=== PATIENT | female | born 1960 | race Caucasian/White ===

== ENCOUNTER → 2017-02-28 | Outpatient (CLI) | payer BC ==
--- NOTE | 2017-03-01 08:51 | MM ---
Reason for exam: follow-up at short interval from prior study. Last mammogram was performed 9 months ago. History: Patient is postmenopausal and has history of breast cancer at age 55. Malignant MG pre op needle loc RT of the right breast, July 13, 2016. Malignant MG stereo VAD BX RT of the right breast, June 13, 2016. Physical Findings: Nurse did not find any significant physical abnormalities on exam. MG 3D Diag Mammo W/Cad LE Bilateral CC and MLO view(s) were taken. Prior study comparison: May 25, 2016, right breast MG 3d work up w/cad RT. May 10, 2016, bilateral MG screening mammo w CAD. There are scattered fibroglandular densities. Post surgical and post therapy changes in the right breast. New global asymmetry posterior medial right breast suggestive of lumpectomy scar. This can be reassessed in 6 months. These results were verbally communicated with the patient and result sheet given to the patient on 02/28/17. ASSESSMENT: Probably benign, BI-RAD 3 RECOMMENDATION: Follow-up diagnostic mammogram of the right breast in 6 months.
== END | disposition home or self-care (01) ==
LOC: RADMAMWWP 15:29
PROVIDERS: ATTEND Radiology Radiation Oncology
DX: Z08 Encounter for follow-up examination after completed treatment for malignant neoplasm (principal); Z85.3 Personal history of malignant neoplasm of breast
CPT/HCPCS: G0204; G0279

== ENCOUNTER 2018-06-14 13:59 | Emergency (ER) | payer BC, OTHER ==
[2018-06-14 14:06] VITALS: BP 136/91; RESP 20; TEMP 97.8
--- NOTE | 2018-06-14 14:09 | ED ---
Fall HPI - General Chief Complaint: Fall Stated Complaint: fall-[facility] Time Seen by Provider: 06/14/18 14:08 Source: patient, RN notes reviewed Mode of arrival: wheelchair - History of Present Illness Initial Comments: This a 57-year-old female with past medical history of osteoarthritis and hypertension who presents today for chief complaint of fall 2 hours ago. 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 She began walking asthma and itas she was walking up a ramp so she continued to walk Associates for a flat surface this caused her to lose her balance and she fell 4 onto her knees bilaterally with the left falling or the right. Patient then fell forward onto her hands bilaterally and then "sort of rolled onto her left side hitting her left elbow. Patient stated that she did lightly hit the left side of her head on the ground, but she stated she broke the fall with hands/elbow and then hit head on ground lightly. She denied LOC. She did not experience any chest pain, shortness of breath, syncope, dizzines, palpitations, shortness of breathe dyspnea with exertion or any other symptoms prior to the fall and stated that it was mechanical in nature. Pt went home after the fall for lunch. Pt noticed left elbow pain, and very mild knee pain b/l, she stated she could ambulate without difficulty. Pt denied headache, diplopia, dizziness, nausea, vomiting, neck pain. Pt took tylenol for the left elbow pain around 1:15. She was told to come to the ER by her work for evaluation. Upon arrival pt appear well, VS stable. Patient denied numbness, tingling, loss sensation, muscle weakness, paresthesias, coolness or color change, ecchymosis of the left elbow. She does admit to some mild left elbow swelling. No abrasions. Patient denies any recent fever, chills, shortness of breath, chest pain, back pain, abdominal pain , nausea or vomiting, numbness or tingling, dysuria or hematuria, constipation or diarrhea, headaches or visual changes, or any other complaints. - Related Data Home Medications Medication Instructions Recorded Confirmed Acetaminophen Tab [Tylenol] 325 - 650 mg PO DIRECTED PRN 07/12/16 07/13/16 Cyclobenzaprine [Flexeril] 5 - 10 mg PO HS PRN 07/12/16 07/13/16 DULoxetine HCL [Cymbalta] 60 mg PO QAM 07/12/16 07/13/16 Glucosam/Pernell-Msm1/C/Daniel/Bosw 1 tab PO DAILY 07/12/16 07/13/16 [Glucosamine-Chondroitin Tablet] Ibuprofen [Motrin] 800 mg PO TID 07/12/16 07/13/16 Losartan Potassium 100 mg PO QAM 07/12/16 07/13/16 Omeprazole Unknown Dose 1 tab PO BID 07/12/16 07/13/16 Previous Rx's Medication Instructions Recorded HYDROcodone/APAP 7.5-325MG [Wallace 1 each PO Q4H PRN #60 tab 07/13/16 7.5] Allergies Allergy/AdvReac Type Severity Reaction Status Date / Time erythromycin base Allergy Unknown Verified 06/14/18 14:02 Penicillins Allergy Unknown Verified 06/14/18 14:02 Review of Systems ROS Statement: Those systems with pertinent positive or pertinent negative responses have been documented in the HPI. ROS Other: All systems not noted in ROS Statement are negative. Constitutional: Denies: fever, chills Eyes: Denies: vision change ENT: Denies: hearing loss Respiratory: Denies: cough, dyspnea Cardiovascular: Denies: chest pain, palpitations, dyspnea on exertion, edema, syncope Gastrointestinal: Denies: abdominal pain, nausea, vomiting Genitourinary: Denies: urgency, dysuria Musculoskeletal: Reports: joint swelling, arthralgia Skin: Denies: rash, lesions Neurological: Denies: headache, weakness, numbness, paresthesias, confusion Past Medical History Past Medical History: Fibromyalgia, GERD/Reflux, Hypertension, Osteoarthritis ( OA) History of Any Multi-Drug Resistant Organisms: None Reported Past Surgical History: Orthopedic Surgery Additional Past Surgical History / Comment(s): 06/13/16 RT BREAST CORE BX, RT KNEE MENISCUS REPAIR, RT FOOT SX Past Anesthesia/Blood Transfusion Reactions: No Reported Reaction Past Psychological History: Depression Smoking Status: Current every day smoker Past Alcohol Use History: Occasional Past Drug Use History: None Reported - Past Family History Father Family Medical History: Cancer Additional Family Medical History / Comment(s): LIVER General Exam - General Exam Comments Initial Comments: General: The patient is awake and alert, in no distress, and does not appear acutely ill. Eye: Pupils are equal, round and reactive to light, extra-ocular movements are intact. No nystagmus. There is normal conjunctiva bilaterally. No signs of icterus. No hemotypanum Cardiovascular: There is a regular rate and rhythm. No murmur, rub or gallop is appreciated. Respiratory: Lungs are clear to auscultation, respirations are non-labored, breath sounds are equal. No wheezes, stridor, rales, or rhonchi. Musculoskeletal: Full active and passive ROM at the hips, knees with extension and flexion, ankles b/l, no tenderness with movements or to palpation. Pt is able to full actively and passively range at the elbows and forearm b/l with flexion, extension, pronation and supination. Mild tenderness to palpation over the dorsal surface of the elbow, very minimal soft tissue swelling. No ecchymosis or abrasion evident. Full ROM at wrists b/l. Strength 5/5 of all muscles group testing in range of motion. Sensation intact of the UE and LE equally b/l. Pt able to make the OK, thumbs up, fingers crossed, and stop signs b/l. Radial ulnar and median nerve intact. DP, radial and ulnar pulses equal bilaterally 2+. Capillary refill less than 2 seconds. Compartments of the upper and lower extremities soft and compressible b/l. Full ROM at C-spine with flexion, extension, lateral flexion, rotation. No midline tenderness to palpation. Mild left sided paravertebral tenderness to deep palpation. Neurological: A&O x 3. CN II-XII intact, There are no obvious motor or sensory deficits. Coordination appears grossly intact. Speech is normal. No castanon sign , raccoon eyes, CSF otorheea or rhinorrhea. Skin: Skin is warm and dry and no rashes or lesions are noted. Psychiatric: Cooperative, appropriate mood & affect, normal judgment. Limitations: no limitations Course Vital Signs 06/14/18 06/14/18 14:02 15:07 Temperature 97.8 F Pulse Rate 107 H 93 Respiratory 20 Rate Blood Pressure 136/91 O2 Sat by Pulse 97 97 Oximetry Medical Decision Making - Medical Decision Making 57yo female with hx of fall. Pt presents in stable condition appear well in not acute distress with ice applied to the left elbow. Given pt hx and physical exam I have low suspicion of fracture or dislocation of the knees, wrists or hands. Pt denies pain, and states that she doesnt think anything is wrong with those areas. Pt does complain of left elbow pain concerning for possible underlying fracture or effusion. XR of the left elbow was obtained revealing no effusion, dislocation or fracture. Pt neurovascularly intact, compartment soft and compressible. At this time I feel pt has soft tissue swelling of the left elbow. Pt did not have any abrasion, contusions, or masses over the area of the left forehead where she said she lightly hit the ground. Pt stated that she barely touched the ground, and denies any symptoms. At this time I have low suspicion for intracranial process or concussion. [facility] CT Head rule score 0. [place] C-spine rule-low risk. Case discussed in detail with Dr. Camejo, who agrees with impression and plan. Pt may continue to take tylenol and motrin alternating the two as needed for pain and follow RICE instruction. Pt was instructed to f/u with PCP in 1-2 days, and to return to the ED for any new, persistent, or worsening symptoms. Pt agreed with plan and was discharged in stable condition. Disposition Clinical Impression: Left elbow pain, Fall Disposition: HOME SELF-CARE Condition: Good Instructions: Fall Prevention for Older Adults (ED) Additional Instructions: Please use over the counter medication as discussed. Please follow-up with family doctor in the next 2 days of symptoms have not improved. Please return to emergency room if the symptoms increase or worsen or for any other concerns. Is patient prescribed a controlled substance at d/c from ED?: No Referrals: Valerio Banegas DO [Primary Care Provider] - 1-2 days Time of Disposition: 14:35
--- NOTE | 2018-06-14 14:39 | XR ---
EXAMINATION TYPE: XR elbow complete LT DATE OF EXAM: 06/14/2018 CLINICAL HISTORY: pain TECHNIQUE: Frontal, lateral and oblique images of the left elbow are obtained. COMPARISON: None. FINDINGS: There is no acute fracture/dislocation evident of the elbow. Mild prominence of the anteri or fat pad. The overlying soft tissue appears unremarkable. IMPRESSION: There is no acute fracture or dislocation of the elbow. ICD 10 NO FRACTURE, INITIAL EVALUATION
[2018-06-14 15:08] VITALS: PULSE 93
== END 2018-06-14 15:07 | disposition home or self-care (01) ==
LOC: EC 13:59
DX: M25.522 Pain in left elbow (principal); M79.89 Other specified soft tissue disorders; M25.561 Pain in right knee; M25.562 Pain in left knee; I10 Essential (primary) hypertension; K21.9 Gastro-esophageal reflux disease without esophagitis; M19.90 Unspecified osteoarthritis, unspecified site; F32.9 Major depressive disorder, single episode, unspecified; F17.200 Nicotine dependence, unspecified, uncomplicated; Z79.1 Long term (current) use of non-steroidal anti-inflammatories (NSAID); Z79.899 Other long term (current) drug therapy; Z88.0 Allergy status to penicillin; Z88.1 Allergy status to other antibiotic agents; Z98.890 Other specified postprocedural states; W01.0XXA Fall on same level from slipping, tripping and stumbling without subsequent striking against object, initial encounter; Y93.01 Activity, walking, marching and hiking; Y92.211 Elementary school as the place of occurrence of the external cause; Y99.0 Civilian activity done for income or pay
CPT/HCPCS: 99283

== ENCOUNTER → 2018-06-18 | Outpatient (CLI) | payer OTHER ==
--- NOTE | 2018-06-19 09:05 | XR ---
Right knee HISTORY: Trauma and pain 3 views of the right knee No comparisons Marginal spurring and joint space loss, vacuum phenomenon present compartment. Alignment and bone min eralization are maintained. There may be a small joint effusion. Spurring also present at the patello femoral joint. IMPRESSION: Osteoarthritis. No fracture or dislocation.
== END | disposition home or self-care (01) ==
LOC: RADXRMAIN 15:13
PROVIDERS: ATTEND Emergency Medicine
DX: M17.11 Unilateral primary osteoarthritis, right knee (principal)

== ENCOUNTER → 2018-06-21 | Outpatient (CLI) | payer OTHER ==
--- NOTE | 2018-06-21 15:28 | XR ---
EXAMINATION TYPE: XR thoracic spine complete DATE OF EXAM: 06/21/2018 COMPARISON: NONE HISTORY: 57-year-old female with thoracic and lumbar spine pain after fall TECHNIQUE: 3 views FINDINGS: 12 rib-bearing thoracic vertebral bodies. All pedicles are visualized. Mild to moderate endplate spon dylosis throughout the thoracic spine. Vertebral body heights are preserved and alignment is maintain ed. There is grade 1 anterolisthesis noted at C7-T1 on the swimmer's view. Likely degenerative basis given the facet arthropathy. IMPRESSION: Mild to moderate multilevel spondylotic change. No vertebral compression collapse or malalignment. We note a grade 1 anterolisthesis at C7-T1 likely on a degenerative basis.
--- NOTE | 2018-06-21 15:34 | XR ---
EXAMINATION TYPE: XR lumbar spine 2 or 3V DATE OF EXAM: 06/21/2018 COMPARISON: NONE HISTORY: 57-year-old female lumbar and thoracic spine pain after fall TECHNIQUE: 3 views FINDINGS: 5 lumbar type vertebral bodies. Mild multilevel degenerative disc disease with disc space narrowing a nd endplate spondylosis. Hypertrophic facet arthropathy throughout. Vertebral body heights are preser luis and alignment is maintained. IMPRESSION: Mild multilevel degenerative disc disease. Additional hypertrophic facet arthropathy throughout. No v ertebral compression collapse or malalignment.
--- NOTE | 2018-06-21 15:36 | XR ---
EXAMINATION TYPE: XR elbow complete LT DATE OF EXAM: 06/21/2018 COMPARISON: NONE HISTORY: 57-year-old female pain after fall TECHNIQUE: 3 views FINDINGS: Elevated posterior fat-pad of the elbow. However, no acute fracture, subluxation, or dislocation is s een. IMPRESSION: 1. No acute fracture seen. 2. However, the underlying elbow joint effusion could indicate an occult internal derangement. Follow -up in 10-14 days.
== END | disposition home or self-care (01) ==
LOC: RADXRMAIN 14:31
PROVIDERS: ATTEND Emergency Medicine
DX: M25.422 Effusion, left elbow (principal); S50.02XD Contusion of left elbow, subsequent encounter; M47.814 Spondylosis without myelopathy or radiculopathy, thoracic region; M43.13 Spondylolisthesis, cervicothoracic region; M51.36 Other intervertebral disc degeneration, lumbar region; M46.86 Other specified inflammatory spondylopathies, lumbar region
CPT/HCPCS: 72072; 72100

== ENCOUNTER → 2018-07-03 | Outpatient (CLI) | payer BC ==
[2018-07-04 14:45] LABS: Cow's Milk IgE Class CLASS 0; Egg White IgE <0.35 kU/L (<0.35); Peanut IgE <0.35 kU/L (<0.35); Potato IgE <0.35 kU/L (<0.35); Potato IgE Class CLASS 0; Soybean IgE <0.35 kU/L (<0.35)
== END | disposition home or self-care (01) ==
LOC: LABWHC1 16:50
PROVIDERS: ATTEND Otolaryngology
DX: L50.0 Allergic urticaria (principal); J30.89 Other allergic rhinitis; B44.89 Other forms of aspergillosis
CPT/HCPCS: 36415; 86001; 86003

== ENCOUNTER → 2018-07-15 | Outpatient (CLI) | payer OTHER ==
--- NOTE | 2018-07-15 17:09 | MR ---
MR left elbow HISTORY: Trauma and pain Multiplanar multisequence imaging through the left elbow Correlation to plain film 06/21/2018 There is a small joint effusion present. Low signal present at the anterior aspect of the radial head as noted on T1 and T2-weighted sequences, there is some associated intermediate signal on T1, increa sed signal on T2-weighted sequences within the marrow compatible with posttraumatic edema. Linear low signal is compatible with nondisplaced fracture within the anterior third of the proximal radius. Ma rrow edema also suspected within the lateral aspect of the distal humerus compatible with bone contus ion. Irregularity of the articular cartilage suggestive of possible osteochondral injury. Soft tissue edema changes also present. Biceps tendon shows normal insertion. IMPRESSION: Posttraumatic changes suggesting microtrabecular fracture of the radial head anteriorly, possible associated osteochondral injury extending into the joint space. There is associated joint ef fusion, marrow edema. Consider follow-up plain film to assess for fracture line, CT scan may be of be nefit, consider orthopedic consult.
== END | disposition home or self-care (01) ==
LOC: RADMRIMAIN 06:10
PROVIDERS: ATTEND Emergency Medicine
DX: M25.422 Effusion, left elbow (principal); Z98.890 Other specified postprocedural states

== ENCOUNTER → 2018-10-02 | Outpatient (CLI) | payer BC ==
--- NOTE | 2018-10-02 14:37 | MM ---
Reason for exam: additional evaluation requested from prior study. Last mammogram was performed 1 year ago. History: Patient is postmenopausal and has history of breast cancer at age 55. Malignant MG pre op needle loc RT of the right breast, July 13, 2016. Malignant MG stereo VAD BX RT of the right breast, June 13, 2016. Lumpectomy of the right breast, 2016. Radiation therapy of the right breast, 2016. Physical Findings: Nurse did not find any significant physical abnormalities on exam. MG 3D Diag Mammo W/Cad LE Bilateral CC and MLO view(s) were taken. Prior study comparison: September 24, 2017, bilateral MG 3d diag mammo w/cad LE. February 28, 2017, bilateral MG 3d diag mammo w/cad LE. There are scattered fibroglandular densities. Finding: There are grouped/clustered coarse calcifications in the inner quadrant, posterior position of the right breast. New finding since September 24, 2017 and February 28, 2017. These results were verbally communicated with the patient and result sheet given to the patient on 10/02/18. ASSESSMENT: Probably benign, BI-RAD 3 RECOMMENDATION: Follow-up diagnostic mammogram of the right breast in 6 months.
== END | disposition home or self-care (01) ==
LOC: RADMAMWWP 13:06
PROVIDERS: ATTEND Radiology Radiation Oncology
DX: Z08 Encounter for follow-up examination after completed treatment for malignant neoplasm (principal); Z85.3 Personal history of malignant neoplasm of breast
CPT/HCPCS: 77062; 77066

== ENCOUNTER → 2019-04-17 | Outpatient (CLI) | payer BC ==
--- NOTE | 2019-04-17 11:40 | MM ---
Reason for exam: follow-up at short interval from prior study. Last mammogram was performed 6 months ago. History: Patient is postmenopausal and has history of breast cancer at age 55. Malignant MG pre op needle loc RT of the right breast, July 13, 2016. Malignant MG stereo VAD BX RT of the right breast, June 13, 2016. Lumpectomy of the right breast, 2016. Radiation therapy of the right breast, 2016. Physical Findings: Nurse did not find any significant physical abnormalities on exam. MG 3D Diag Mammo W/Cad RT CC with magnification, LM with magnification, ML with magnification, MLO, and CC view(s) were taken of the right breast. Prior study comparison: October 02, 2018, bilateral MG 3d diag mammo w/cad LE. September 24, 2017, bilateral MG 3d diag mammo w/cad LE. There are scattered fibroglandular densities. Medial posterior post surgical scar. Increasing grouped calcifications here. These calcifications remain localized but are becoming thicker. Suspect developing dystrophic calcifications. Unable to image on MLO or lateral views. Additional 6 month follow up recommended. These results were verbally communicated with the patient and result sheet given to the patient on 04/17/19. ASSESSMENT: Probably benign, BI-RAD 3 RECOMMENDATION: Follow-up diagnostic mammogram of both breasts in 6 months.
== END | disposition home or self-care (01) ==
LOC: RADMAMWWP 09:33
PROVIDERS: ATTEND Radiology Radiation Oncology
DX: D05.11 Intraductal carcinoma in situ of right breast (principal); Z92.3 Personal history of irradiation; Z98.890 Other specified postprocedural states
CPT/HCPCS: 77061; 77065

== ENCOUNTER → 2019-10-20 | Outpatient (CLI) | payer BC ==
--- NOTE | 2019-10-23 09:47 | MM ---
Reason for exam: follow-up at short interval from prior study. Last mammogram was performed 6 months ago. History: Patient is postmenopausal and has history of breast cancer at age 55. Malignant MG pre op needle loc RT of the right breast, July 13, 2016. Malignant MG stereo VAD BX RT of the right breast, June 13, 2016. Lumpectomy of the right breast, 2016. Radiation therapy of the right breast, 2016. Physical Findings: Nurse did not find any significant physical abnormalities on exam. MG 3D Diag Mammo W/Cad LE Bilateral CC and MLO view(s) were taken. XCCL view(s) were taken of the left breast. Prior study comparison: April 17, 2019, right breast MG 3d diag mammo w/cad RT. October 02, 2018, bilateral MG 3d diag mammo w/cad LE. The breast tissue is heterogeneously dense. This may lower the sensitivity of mammography. No suspicious abnormality. Post theapy change on the right. These results were verbally communicated with the patient and result sheet given to the patient on 10/20/19. ASSESSMENT: Benign, BI-RAD 2 RECOMMENDATION: Follow-up diagnostic mammogram of both breasts in 1 year.
== END | disposition home or self-care (01) ==
LOC: RADMAMWWP 13:32
PROVIDERS: ATTEND Radiology Radiation Oncology
DX: D05.11 Intraductal carcinoma in situ of right breast (principal); Z92.3 Personal history of irradiation; Z98.890 Other specified postprocedural states
CPT/HCPCS: 77062; 77066

== ENCOUNTER → 2020-07-19 | Outpatient (CLI) | payer BC | END | disposition home or self-care (01) | LOC: LABWHC1 13:13 | PROVIDERS: ATTEND Family Medicine | DX: Z20.828 Contact with and (suspected) exposure to other viral communicable diseases (principal) | CPT/HCPCS: U0003; C9803 ==

== ENCOUNTER 2020-11-22 09:14 | Day surgery (SDC) | payer BC ==
[2020-11-19 13:24] VITALS: BMI 39.4
[2020-11-22 09:51] VITALS: RESP 16; TEMP 98.5
[2020-11-22] MEDS ORDERED: LACTATED RINGERS 1,000 ML IV ONE (09:57)
[2020-11-22] MEDS ORDERED: LIDOCAINE 1% (10MG/ML) FOR IV START INTRADERMA ONE (09:58)
[2020-11-22] MEDS ORDERED: PROPOFOL 10 MG/ML 20 ML VIAL IV ONE (10:26)
[2020-11-22] MEDS ORDERED: LIDOCAINE 1% INJ 10MG/ML (20 ML MDV) ONE (10:26)
--- NOTE | 2020-11-22 10:45 | P.PCN ---
Date of Procedure: 11/22/20 Procedure(s) Performed: BRIEF HISTORY: Patient is a 60-year-old, pleasant, white female scheduled for an upper endoscopy as a part of evaluation of throat irritation and constipation so throat with occasional dysphagia for the last 6 months. She also has long- standing history of GERD and has been on omeprazole 20 mg daily for 5 years. PROCEDURE PERFORMED: Esophagogastroduodenoscopy with biopsy. PREOPERATIVE DIAGNOSIS: Throat irritation and intermittent dysphagia to solids. IV sedation per anesthesia. PROCEDURE: After informed consent was obtained, the patient was brought into the endoscopy unit. IV sedation was administered by Anesthesia under continuous monitoring. Initially the Olympus GIF-140 video endoscope was inserted into the mouth. Esophagus intubated without any difficulty. It was gradually advanced into the stomach and duodenum and carefully examined. The bulb and the second p art of the duodenum appeared normal. The scope at this time was withdrawn to the stomach, adequately insufflated with air, and upon careful examination, mucosa of the antrum, gastritis and biopsies were done from this area. The body, cardia and the fundus appeared normal. The scope was then withdrawn into the esophagus. The GE junction was located at 39 cm from the incisors. The esophagus appeared normal. There were no erosions or ulcerations seen. The proximal cervical esophagus was carefully examined and appeared normal. There was no evidence of Zenker's diverticulum or any extrinsic compression noted. Biopsies were done from the midesophagus and the patient tolerated the procedure well. IMPRESSION: 1. Normal-appearing esophagus with no evidence of esophagitis, esophageal stricture, extrinsic compression or Zenker's diverticulum. 2. Mild antral gastritis. RECOMMENDATIONS: The findings of this examination were discussed with the patient as well as a family. She was advised to follow with the biopsy results. In the meantime she will continue with omeprazole 20 mg daily for her GERD symptoms and follow antireflux measures..
[2020-11-22 11:04] VITALS: BP 148/89; PULSE 69
== END 2020-11-22 11:42 | disposition home or self-care (01) ==
LOC: ORWHC2ENDO 09:14
PROVIDERS: ATTEND Internal Medicine Gastroenterology
DX: K29.70 Gastritis, unspecified, without bleeding (principal); K31.9 Disease of stomach and duodenum, unspecified; K21.00 Gastro-esophageal reflux disease with esophagitis, without bleeding; I10 Essential (primary) hypertension; F17.200 Nicotine dependence, unspecified, uncomplicated; M79.7 Fibromyalgia; E66.01 Morbid (severe) obesity due to excess calories; K59.00 Constipation, unspecified; Z79.899 Other long term (current) drug therapy; Z79.1 Long term (current) use of non-steroidal anti-inflammatories (NSAID); Z88.0 Allergy status to penicillin; Z88.1 Allergy status to other antibiotic agents; Z68.39 Body mass index [BMI] 39.0-39.9, adult; Z98.890 Other specified postprocedural states
CPT/HCPCS: 88305; 43239; J2001; J2704

== ENCOUNTER 2023-07-24 08:49 | Inpatient (IN) | payer BC ==
--- NOTE | 2023-07-23 08:59 | P.HPOR ---
History of Present Illness H&P Date: 07/23/23 Chief Complaint: Right knee pain Patient is a 62-year-old female who presents with progressive right knee pain for the past several years worsening recently. She notes intermittent buckling and locking. She notes medial pain with weightbearing activities that significantly limits her. She has tried medications in addition to injections and bracing without much relief. Review of Systems Negative except as in HPI Past Medical History Past Medical History: Fibromyalgia, GERD/Reflux, Hypertension, Osteoarthritis (OA) Additional Past Medical History / Comment(s): 2016 Precancerous cells in R breast with lumpectomy and radiation, History of Any Multi-Drug Resistant Organisms: None Reported Past Surgical History: Breast Surgery, Orthopedic Surgery Additional Past Surgical History / Comment(s): Rt breast lumpectomy- preecancerous tissue06/13/16, RT BREAST CORE BX, RT KNEE MENISCUS REPAIR, LT FOOT SX/TENDON Past Anesthesia/Blood Transfusion Reactions: No Reported Reaction Smoking Status: Current every day smoker - Past Family History Father Family Medical History: Cancer Additional Family Medical History / Comment(s): LIVER Medications and Allergies Home Medications Medication Instructions Recorded Confirmed Type Acetaminophen Tab [Tylenol] 325 - 650 mg PO DIRECTED PRN 07/12/16 07/20/23 History Cyclobenzaprine [Flexeril] 10 mg PO HS PRN 07/12/16 07/20/23 History DULoxetine HCL [Cymbalta] 60 mg PO QAM 07/12/16 07/20/23 History Glucosam/Pernell-Msm1/C/Daniel/Bosw 1 tab PO QAM 07/12/16 07/20/23 History [Glucosamine-Chondroitin Tablet] Losartan Potassium 100 mg PO QAM 07/12/16 07/20/23 History Multivitamins, Thera [Multivitamin 1 tab PO QAM 11/19/20 07/20/23 History (formulary)] Diclofenac Sodium [Voltaren] 50 mg PO BID 07/20/23 07/20/23 History Gabapentin [Neurontin] 300 mg PO HS 07/20/23 07/20/23 History Allergies Allergy/AdvReac Type Severity Reaction Status Date / Time erythromycin base Allergy stomach Verified 11/22/20 09:40 irritation Penicillins AdvReac hands Verified 07/20/23 08:55 intching Physical Examination - Knee right Appearance: effusion Effusion grade: grade 2 Varus alignment in stance: 10 degrees Tenderness with palpation: anterior, medial Pain: throughout ROM Gait: limping ROM: extension: -10 degrees ROM: flexion: 100 degrees Crepitus with motion: Yes Strength: extension: 5/5 Strength: flexion: 5/5 Meniscal tests: medial meniscal tests: positive, medial joint line pain: positive Results The patient is a well-developed well-nourished female approximately 5 foot 4, 230 pounds of endomorphic habitus. HEENT exam is nonfocal, neck is supple. She has painless passive motion of the right hip. Straight leg raise is negative. She's tender about the medial joint line. Collaterals are stable, Rosario was negative, Mingo's elicits medial pain. She has an antalgic gait pattern. Her distal neurovascular appears intact right lower extremity. - Diagnostic results Knee x-ray: image reviewed (3 views the right knee obtain the office show severe medial compartment osteoarthrosis with [id number] changes and subchondral sclerosis.) Assessment and Plan Assessment: Right knee severe medial compartment osteoarthrosis Obesity/BMI 39.48 Plan: I talked with the patient length regarding her condition along with treatment options. At this point she's quite symptomatic and limited because of pain related to her right knee osteoarthrosis despite conservative measures. After a thorough discussion she opted to proceed with surgery. We'll proceed with right total knee arthroplasty. We will institute DVT prophylaxis postoperative. Risks and benefits were discussed at length in layman's terms.
[~2023-07-24 08:49] MED LIST: ACETAMINOPHEN TAB 500 MG TAB PO PRN; HYDROmorphone 0.5 MG/0.5 ML SYRINGE IVP PRN; MELOXICAM 7.5 MG TAB PO PRN; ONDANSETRON 4 MG/2 ML VIAL IVP ONE; TRANEXAMIC 1,000 MG/100ML-NACL 1,000 MG in SALINE 1 100ML.BAG IVPB PRN
[2023-07-24] MEDS: DEXAMETHASONE SOD PHOSPHATE 4 MG/ML 1 ML VIAL IV ONE ×2 (10:14→15:08)
[2023-07-24] MEDS: LACTATED RINGERS 1,000 ML IV SCH ×2 (10:14→10:47)
[2023-07-24] MEDS ORDERED: MIDAZOLAM 2 MG/2 ML VIAL IVP ONE (10:16)
[2023-07-24] MEDS ORDERED: fentaNYL (PF) 50 MCG/ML 2 ML AMP IVP ONE (10:16)
--- NOTE | 2023-07-24 10:43 | P.ANPRN ---
Procedure Note - Anesthesia - Nerve Block Performed Right Adductor Canal Infusion Time Out Performed: Yes ([id number]) Date of Procedure: 07/24/23 Procedure Start Time: : Procedure Stop Time: Location of Patient: PreOp Indication: Acute Post-Operative Pain, Requested by Surgeon Specifically requested for management of pain by DrGabrielle: Jeremias Corona Sedation Type: Sedate with meaningful contact maintained Preparation: Sterile Prep Position: Supine Catheter Depth at Skin (cm): 9 Catheter: Indwelling Needle Types: Pajunk Needle Gauge: 21 Ultrasound used to visualize needle placement: Yes Ultrasound used to observe medication spread: Yes Injectate: 0.5% Ropivacaine (see comment for volume) (15cc +10cc nacl pf) Blood Aspirated: No Pain Paresthesia on Injection Noted: No Resistance on Injection: Normal Image Stored and Saved: Yes Events: Uneventful and Well Tolerated
--- NOTE | 2023-07-24 10:44 | P.ANPRN ---
Procedure Note - Anesthesia - Nerve Block Performed Right iPack Single Time Out Performed: Yes (1017) Date of Procedure: 07/24/23 Procedure Start Time: Procedure Stop Time: Location of Patient: PreOp Indication: Acute Post-Operative Pain, Requested by Surgeon Specifically requested for management of pain by DrGabrielle: Herb Mathias Sedation Type: Sedate with meaningful contact maintained Preparation: Sterile Prep Position: Supine Catheter: None Needle Types: Pajunk Needle Gauge: 21 Ultrasound used to visualize needle placement: Yes Ultrasound used to observe medication spread: Yes Injectate: 0.5% Ropivacaine (see comment for volume) (15cc +10cc nacl pf) Blood Aspirated: No Pain Paresthesia on Injection Noted: No Resistance on Injection: Normal Image Stored and Saved: Yes Events: Uneventful and Well Tolerated
[2023-07-24] MEDS ORDERED: ROPIVACAINE 5 MG/ML 30 ML VIAL ONE (10:47)
[2023-07-24] MEDS ORDERED: MIDAZOLAM 2 MG/2 ML VIAL ONE (10:47)
[2023-07-24] MEDS ORDERED: TRANEXAMIC 1,000 MG/100ML-NACL PREMIX BAG ONE (10:47)
[2023-07-24] MEDS ORDERED: fentaNYL (PF) 50 MCG/ML 2 ML AMP ONE (10:47)
[2023-07-24] MEDS ORDERED: SODIUM CHLORIDE 0.9% (PF) 10 ML VIAL ONE (10:47)
[2023-07-24] MEDS ORDERED: PROPOFOL 10 MG/ML 20 ML VIAL IV ONE (10:47)
[2023-07-24] MEDS ORDERED: ceFAZolin 1,000 MG in SODIUM CHLORIDE 0.9% 1,000 ML IRRIGATION ONE (11:26)
[2023-07-24] MEDS ORDERED: LACTATED RINGERS 1,000 ML IV ONE (12:14)
[2023-07-24] MEDS ORDERED: MAGNESIUM HYDROXIDE 2,400 MG/30 ML CUP PO PRN (12:26)
[2023-07-24] MEDS ORDERED: HYDROmorphone 0.5 MG/0.5 ML SYRINGE IVP PRN (12:26)
[2023-07-24] MEDS ORDERED: HYDROcodone/APAP 5-325MG 1 EACH TAB PO PRN (12:26)
[2023-07-24] MEDS ORDERED: NALOXONE 0.4 MG/ML 1 ML VIAL IV PRN (12:26)
--- NOTE | 2023-07-24 12:45 | P.OP ---
Date of Procedure: 07/24/23 Preoperative Diagnosis: Right knee severe tricompartmental osteoarthrosis Postoperative Diagnosis: Same Procedure(s) Performed: Right total knee arthroplastycementedposterior stabilized Implants: Depuy Attune size 6 narrow cemented femoral component, size 5 cemented tibial component, 9 mm articular surface, 35 mm cemented patellar component. This is a posterior stabilized implant. Anesthesia: regional, spinal Surgeon: Jeremias Corona Contracts Attorney #1: Rashi Roper Estimated Blood Loss (ml): 50 Pathology: none sent Condition: stable Disposition: PACU Indications for Procedure: The patient is a 62-year-old female presents with progressive right knee pain secondary to osteoporosis despite conservative measures. A discussion of the risks and benefits of operative intervention versus continued conservative measures was made with patient. She opted to proceed with surgery. Operative risks to include infection, neurovascular injury, fracture, development of blood clots, component loosening/failure and possible need for subsequent procedures was discussed. Informed consent was obtained. Operative Findings: As below Description of Procedure: The patient was brought to the operating room, and after induction of spinal anesthesia the right lower extremity was prepped and draped in a normal fashion. The tourniquet was inflated to 270 mm marker. A longitudinal incision extending 3 finger breaths above the superior pole of patella extending to the medial aspect the tibial tubercle was then made. The skin and subcutaneous tissues were divided sharply. Electrocautery was used for hemostasis. A medial parapatellar arthrotomy was performed. The medial soft tissues to include the superficial and deep portions of the medial collateral ligament were elevated subperiosteally. The patella was everted. A portion of the retropatellar fat pad was excised sharply. The anterior cruciate ligament was sacrificed. Blunt retractors were placed. A starting hole was made in the distal femur 1 cm anterior to the posterior cruciate ligament origin. An intramedullary femoral guide was then inserted planning on 5 valgus distal cut with 9 mm distal resection. The cutting block was pinned in place. The distal cut was then made. The posterior referencing sizing guide was utilized. I felt size 6 narrow was most appropriate. 3 of external rotation was built into the system and verified off the trans-epicondylar axis and the posterior condyles. The cutting block was pinned in place. The anterior, posterior, and chamfer cuts then made. Bone fragments were removed. The intercondylar guide was placed and the notch cut was made with a sagittal saw. The bone block was removed in one fragment. The trial component was then placed. There is good anterior to posterior and medial to lateral fit. The distal peg holes were drilled. The trial component was removed. Attention was then paid towards preparing the proximal tibia. An extra medullary guide was utilized in line with the tibial shaft and second metatarsal distally. I planned on 4 mm resection from the medial compartment. The cutting block was pinned in place. The proximal tibial cut was then made. The bone was removed in one fragment. The remnants of the medial and lateral menisci were excised at the capsular junction with electrocautery. The tibia sized most appropriately at size 5. The trial femoral and tibial components were placed along with a 9 mm articular surface. I was able to obtain full flexion and extension with internal and external rotation. After several flexion and extension cycles, the tibial rotation was marked with electrocautery line with the medial one third of the tibial tubercle. Attention was then paid towards preparing the patella. A patella reamer was utilized taking stem to 14 mm of bone stock. A good flush cut was made. The patella sized most appropriately 35 mm. The peg holes were drilled. The trial components placed. I had good patellofemoral tracking with no hands technique. The trial components were then removed. The tibia was prepared in the appropriate rotation with appropriate drill and keel punch. The posterior osteophytes were removed with a curved osteotome. The flexion and extension gaps were checked and felt to be symmetric at 9 mm. A trial components were then removed. The bony surfaces were prepared with pulsatile lavage and dried. The tibial component was then cemented place was fully seated. Excess cement was removed. The femoral component cemented place and was fully seated. Excess cement was removed. The trial 9 mm articular surface was placed and the knee was put in full extension. The patella component was cemented place. After the cement had sufficiently hardened, the knee was again taken through a range of motion. Again I was able to obtain full flexion and extension with varus and valgus stress. The trial 9 mm articular surface was removed and the final one inserted. This was fully seated. Care was taken to avoid any soft tissue interposition. Pulsatile lavage was again utilized. The medial parapatellar arthrotomy was closed with #2 Ethibond suture. The tourniquet was deflated with approximately 60 minutes total tourniquet time. Final hemostasis was obtained with the cautery. There was minimal bleeding therefore a deep drain was not placed. The subcutaneous tissues were reapproximated with interrupted 2-0 Vicryl sutures. The skin was reapproximated with 3-0 subcuticular strata fix suture. Skin tape and adhesive was applied. A sterile dressing was applied. The patient was awoken from sedation and transferred to recovery room in good condition. Blood loss was estimated at 50 mL. No complications were incurred. Sponge and needle counts were correct at the end of the case. Rashi RODNEY assisted during the major components of this case to include exposure, bone resection, implantation, and closure.
--- NOTE | 2023-07-24 13:14 | XR ---
EXAMINATION TYPE: XR knee limited RT DATE OF EXAM: 07/24/2023 COMPARISON: NONE TECHNIQUE: Two views submitted HISTORY: Post op FINDINGS: There is a prosthetic knee in near anatomic alignment. There is soft tissue edema and soft tissue e mphysema compatible with recent surgery. IMPRESSION: 1. Postoperative change. Appears in near-anatomic alignment
[2023-07-24] MEDS ORDERED: ROPIVACAINE 1,100 MG, SODIUM CHLORIDE 0.9% 500 ML 330 ML, EMPTY PAIN BALL 1 EACH MISCELLANE PRN ×2 (13:19)
[2023-07-24] MEDS: HYDROmorphone 1 MG/ML 1 ML SYRINGE IVP PRN ×3 (14:35→19:50)
[2023-07-24] MEDS: HYDROcodone/APAP 7.5-325MG 1 EACH TAB PO PRN ×2 (15:18→22:45)
[2023-07-24] MEDS: hydrOXYzine pamoate 25 MG CAP PO PRN ×2 (16:16→20:39)
[2023-07-24] MEDS ORDERED: traMADol 50 MG TAB PO PRN (20:00)
[2023-07-24] MEDS: SENNOSIDES-DOCUSATE SODIUM 1 EACH TAB PO SCH (20:39)
[2023-07-24] MEDS: GABAPENTIN 300 MG CAP PO SCH (20:39)
[2023-07-24] MEDS: CYCLOBENZAPRINE 10 MG TAB PO PRN (23:11)
[2023-07-25] MEDS: HYDROmorphone 1 MG/ML 1 ML SYRINGE IVP PRN ×6 (00:17→22:08)
--- NOTE | 2023-07-25 06:30 | P.PN ---
Progress Note - Text Progress Note Date: 07/25/23 patient was seen and evaluated at bedside. Status post postoperative day 1 forRight -sided total knee arthroplasty patient had adductor canal catheter for postop pain control. Patient rated pain at rest 5- 6 out of 10 in severity. Patient describes pain is aching, throbbing type on the sides of the knee and back of the knee. Patient started walking with support. With activity patient pain levels are 8 out of 10 in severity. With the help of oral pain medicati ons pain levels are tolerable. Patient denied any weakness/ numbness in lower extremities. patient denied any fever, pain over the catheter site. Physical exam: Patient vital signs stable Patient is alert awake oriented 3 responding to all questions appropriately Examination of the catheter site showed dressing intact, no leaking fluid around the catheter, no redness, no tenderness over the catheter insertion area. plan: status post postoperative day 1 for right total knee arthroplasty with adductor canal catheter for pain control. Patient was discussed to continue the medication until the pump is completely empty and instructed the patient how to discontinue the catheter.
[2023-07-25] MEDS: LACTATED RINGERS 1,000 ML IV SCH (06:47)
[2023-07-25 08:42] LABS: Basophils # (A) 0.04 X 10*3/uL (0.00-0.10); Basophils % (A) 0.3 %; Eosinophils # (A) 0.02 X 10*3/uL (0.04-0.35); Eosinophils % (A) 0.2 %; HCT 37.1 % (37.2-46.3); HGB 12.1 d/dL (12.0-15.0); Lymphocytes # (A) 2.53 X 10*3/uL (0.90-5.00); Lymphocytes % (A) 19.1 %; MCHC 32.6 d/dL (32.0-37.0); MCV 98.1 FL (80.0-97.0); Mean Platelet Volume 10.1 FL (9.5-12.2); Monocytes # (A) 1.01 X 10*3/uL (0.20-1.00); Monocytes % (A) 7.6 %; NRBC Per 100 WBC 0 X 10*3/uL (0.00-0.01); Neutrophils % (A) 72.4 %; Platelet Count 395 X 10*3/uL (140-440); RBC 3.78 X 10*6/uL (4.10-5.20); RDW 13.2 % (11.5-14.5); WBC 13.25 X 10*3/uL (4.50-10.00)
[2023-07-25] MEDS: hydrOXYzine pamoate 25 MG CAP PO PRN ×2 (08:46→14:59)
[2023-07-25] MEDS: PANTOPRAZOLE 40 MG TABLET PO SCH (08:47)
[2023-07-25] MEDS: LOSARTAN 50 MG TAB PO SCH (08:47)
[2023-07-25] MEDS: DULoxetine HCL 60 MG CAPSULE.DR PO SCH (08:47)
[2023-07-25] MEDS: RIVAROXABAN 10 MG TAB PO SCH (08:47)
--- NOTE | 2023-07-25 10:14 | P.PN ---
Subjective Progress Note Date: 07/25/23 Principal diagnosis: Right knee osteoarthritis Patient was seen at bedside this morning lying semirecumbent position with dressing of the right knee. Patient says she did have a lot of pain overnight. She says she has been up walking a couple times and used the bathroom. She says she hasn't had any issues urinating. Patient says she is looking forward to working with physical therapy later this morning. Patient is hoping to stay one more night for continued pain control. Patient denies any other issues at this time. Patient denies chest pain, fever shortness breath, nausea, vomiting, change in vision, loss of bowel/bladder control. Objective - Vital Signs Vital signs: Vital Signs Temp 98.8 F 07/25/23 07:10 Pulse 101 H 07/25/23 07:10 Resp 17 07/25/23 07:10 BP 117/76 07/25/23 07:10 Pulse Ox 90 L 07/25/23 07:10 FiO2 Intake & Output 07/24/23 07/25/23 07/25/23 18:59 06:59 18:59 Intake Total 1251 Output Total 50 Balance 1201 Weight 105.7 kg Intake: IV 1251 Output: Estimated Blood Loss 50 Other: # Voids 2 3 - Exam Right knee: Incision is clean, dry, and intact. The exofin fusion tape is in good condition. There is minimal soft tissue swelling and ecchymosis surrounding the medial and lateral aspects of the incision. Calf is soft, no tenderness with palpation. Plantar flexion, dorsiflexion, EHL, FHL are intact. Sensory exam to light touch throughout the extremity is intact, dorsal pedis pulses 2+. - Labs CBC & Chem 7: 07/25/23 04:39 Labs: Abnormal Lab Results - Last 24 Hours (Table) 07/25/23 Range/Units 04:39 WBC 13.25 H (4.50-10.00) X 10*3/uL RBC 3.78 L (4.10-5.20) X 10*6/uL Hct 37.1 L (37.2-46.3) % MCV 98.1 H (80.0-97.0) FL Neutrophils # 9.60 H (1.80-7.70) X 10*3/uL Monocytes # 1.01 H (0.20-1.00) X 10*3/uL Eosinophils # 0.02 L (0.04-0.35) X 10*3/uL Assessment and Plan Assessment: 1. Right knee osteoarthritis - Postop day 1 status post right total knee arthroplasty Plan: 1. Right knee osteoarthritis - right total knee arthroplasty performed yeste , 07/24/2023. Patient stable at bedside this morning. We will adjust pain medications as needed. Plan for patient to stay one more night for additional pain control. Plan for discharge home tomorrow with health services. 2 . Appreciate medical management 3. Pain management - [place]; tramadol; Flexeril; gabapentin 4. DVT prophylaxis - Xarelto 5. GI prophylaxis - senna 6. PT/OT - weightbearing as tolerated with walker 7. Encourage incentive spirometer use 8. Discharge planning - discharge home with health services tomorrow Time with Patient: Less than 30
[2023-07-25] MEDS ORDERED: IPRATROPIUM-ALBUTEROL 3 ML NEB INHALATION PRN (11:10)
--- NOTE | 2023-07-25 11:17 | P.CONS ---
History of Present Illness - Reason for Consult Consult date: 07/25/23 Medical management hypertension, nicotine dependence Requesting physician: Jeremias Corona - Chief Complaint Osteoarthritis, status post surgical repair right knee - History of Present Illness This is 62-year-old female with past medical history significant for osteoarthritis , fibromyalgia, gastroesophageal reflux disease, hypertension, depression, ongoing nicotine dependence-since 1972, obesity ,status post right total knee arthroplasty. Tolerated procedure well. Currently reports pain this morning. PT pending. Denies chest pain, palpitations or shortness of breath. Maintaining O2 sats in the low 90s on room air with minimal tachycardia. Denies chest pain, palpitations or shortness of breath. Afebrile, WBC 13.25, hemoglobin 12.1, platelets 395. Review of Systems Constitutional: Denied any fatigue denied any fever. Cardio vascular: denied any chest pain, palpitations Gastrointestinal denied any nausea vomiting Pulmonary: Denied any shortness of breath cough Neurologic denied any new focal deficits All inpatient medications were reviewed and appropriate changes in these medications as dictated in the interval history and assessment and plan. 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, History of Any Multi-Drug Resistant Organisms: None Reported Past Surgical History: Breast Surgery, Orthopedic Surgery Additional Past Surgical History / Comment(s): Rt breast lumpectomy-preec ancerous tissue06/13/16, RT BREAST CORE BX, RT KNEE MENISCUS REPAIR, LT FOOT SX/TENDON Past Anesthesia/Blood Transfusion Reactions: No Reported Reaction Past Psychological History: Depression Additional Psychological History / Comment(s): USES CYMBALTA FOR BOTH PAIN AND DEPRESSION Smoking Status: Current every day smoker Past Alcohol Use History: Occasional Additional Past Alcohol Use History / Comment(s): STARTED SMOKING AT AGE 14 (1972)<1PPD Past Drug Use History: None Reported - Past Family History Father Family Medical History: Cancer Additional Family Medical History / Comment(s): LIVER Medications and Allergies Home Medications Medication Instructions Recorded Confirmed Type Acetaminophen Tab [Tylenol] 325 - 650 mg PO DIRECTED PRN 07/12/16 07/24/23 History Cyclobenzaprine [Flexeril] 10 mg PO HS PRN 07/12/16 07/24/23 History DULoxetine HCL [Cymbalta] 60 mg PO QAM 07/12/16 07/24/23 History Glucosam/Pernell-Msm1/C/Daniel/Bosw 1 tab PO QAM 07/12/16 07/24/23 History [Glucosamine-Chondroitin Tablet] Losartan Potassium 100 mg PO QAM 07/12/16 07/24/23 History Multivitamins, Thera [Multivitamin 1 tab PO QAM 11/19/20 07/24/23 History (formulary)] Diclofenac Sodium [Voltaren] 50 mg PO BID 07/20/23 07/24/23 History Gabapentin [Neurontin] 300 mg PO HS 07/20/23 07/24/23 History Omeprazole 20 mg PO DAILY 07/24/23 07/24/23 History Allergies Allergy/AdvReac Type Severity Reaction Status Date / Time erythromycin base Allergy stomach Verified 07/24/23 09:57 irritation Penicillins AdvReac hands Verified 07/24/23 09:57 intching Physical Exam Vitals: Vital Signs Temp Pulse Pulse Resp BP Pulse Ox 07/25/23 07:10 98.8 F 101 H 17 117/76 90 L 07/25/23 00:22 98 F 88 16 129/86 94 L 07/24/23 19:10 98.2 F 82 16 124/77 95 07/24/23 14:36 97.2 F L 67 17 147/75 97 07/24/23 13:58 65 16 120/71 96 07/24/23 13:43 63 16 122/70 94 L 07/24/23 13:28 64 16 129/67 94 L 07/24/23 13:13 63 16 132/61 95 07/24/23 12:58 62 14 130/67 94 L 07/24/23 12:43 67 14 152/74 100 Intake and Output 07/24/23 07/25/23 07/25/23 22:59 06:59 14:59 Intake Total 210 Balance 210 Intake: Intake, IV Titration 210 Amount Lactated Ringers 1,000 ml 160 @ 20 mls/hr IV .Q24H [facility] Rx#:[id number] ceFAZolin 2 gm In Sodium 50 Chloride 0.9% 50 ml @ 100 mls/hr IVPB Q8H [facility] Rx#: [id number] Other: Voiding Method External Catheter # Voids 2 3 PHYSICAL EXAM: VITAL SIGNS: [As above] GENERAL: Alert and oriented 3, sitting up in bed, no acute distress. HEENT: Normocephalic,Conjunctivae normal. eyes normal. MMM. NECK: Supple, No JVD. CARDIOVASCULAR: S1, S2 regular. No murmur RESPIRATION: Unlabored, equal air entry, Breath sounds diminished in the bases. No rhonchi or crackles. No bronchial breathing. ABDOMEN: Soft, nondistended, nontender . No guarding. no masses palpable. No ascites, No hepatosplenomegaly.Bowel sounds heard. LEGS: Right knee dressing clean dry and intact, denies calf tenderness, positive DP pulse. PSYCHIATRY: Alert and oriented X3, mood and affect normal. NERVOUS SYSTEM: Cranial N 2-12 grossly normal. No focal deficits. Strength and sensation grossly intact.. Skin: Warm and dry, no rash Results CBC & Chem 7: 07/25/23 04:39 Labs: Abnormal Lab Results - Last 24 Hours (Table) 07/25/23 Range/Units 04:39 WBC 13.25 H (4.50-10.00) X 10*3/uL RBC 3.78 L (4.10-5.20) X 10*6/uL Hct 37.1 L (37.2-46.3) % MCV 98.1 H (80.0-97.0) FL Neutrophils # 9.60 H (1.80-7.70) X 10*3/uL Monocytes # 1.01 H (0.20-1.00) X 10*3/uL Eosinophils # 0.02 L (0.04-0.35) X 10*3/uL Assessment and Plan Assessment: Right knee OA, status post right total knee arthroplasty Atelectasis, postoperative, expected outcome Acute hypoxic respiratory failure secondary to the above Gastroesophageal reflux disease Fibromyalgia Hypertension Depression Ongoing nicotine dependence COPD Plan: Continue on current medication regime ,monitoring and symptomatic treatment. Aggressive pulmonary toileting with incentive spirometer reinforced. Smoking cessation reinforced. Nicotine patch added to med regimen. Nebulized bronchodilators and LABA initiated. Pain management and DVT prophylaxis as per primary. PT pending. Follow-up with PCP in one week. Thank you for the consult Dr. Corona. The impression and plan of care has been dictated as directed. : I performed a history and examination of this patient, discussed the same with the dictator. I agree with the dictator's note ,documented as a scribe. Any additional findings or plans will be noted.
[2023-07-25] MEDS: IPRATROPIUM-ALBUTEROL 3 ML NEB INHALATION SCH ×3 (11:49→21:01)
[2023-07-25] MEDS: SYMBICORT 80-4.5 MCG INHALER INHALATION SCH ×2 (11:49→21:01)
[2023-07-25] MEDS: LORATADINE 10 MG TAB PO SCH (14:58)
[2023-07-25] MEDS: NICOTINE 14MG/24HR PATCH TRANSDERM SCH (14:58)
[2023-07-25] MEDS: oxyCODONE-APAP 5-325MG 1 EACH TAB PO PRN (14:59)
[2023-07-25] MEDS: SENNOSIDES-DOCUSATE SODIUM 1 EACH TAB PO SCH (20:31)
[2023-07-25] MEDS: HYDROcodone/APAP 7.5-325MG 1 EACH TAB PO PRN (20:31)
[2023-07-25] MEDS: GABAPENTIN 300 MG CAP PO SCH (20:32)
[2023-07-25] MEDS: CYCLOBENZAPRINE 10 MG TAB PO PRN (20:32)
[2023-07-26] MEDS: oxyCODONE-APAP 5-325MG 1 EACH TAB PO PRN ×2 (02:22→07:57)
[2023-07-26] MEDS: HYDROcodone/APAP 7.5-325MG 1 EACH TAB PO PRN (05:21)
[2023-07-26] MEDS: NICOTINE 14MG/24HR PATCH TRANSDERM SCH (07:54)
[2023-07-26] MEDS: RIVAROXABAN 10 MG TAB PO SCH (07:54)
[2023-07-26] MEDS: PANTOPRAZOLE 40 MG TABLET PO SCH (07:54)
[2023-07-26] MEDS: LOSARTAN 50 MG TAB PO SCH (07:54)
[2023-07-26] MEDS: DULoxetine HCL 60 MG CAPSULE.DR PO SCH (07:54)
[2023-07-26] MEDS: LORATADINE 10 MG TAB PO SCH (07:54)
[2023-07-26] MEDS: hydrOXYzine pamoate 25 MG CAP PO PRN ×2 (07:57→15:56)
[2023-07-26] MEDS: IPRATROPIUM-ALBUTEROL 3 ML NEB INHALATION SCH ×4 (08:03→19:22)
[2023-07-26] MEDS: SYMBICORT 80-4.5 MCG INHALER INHALATION SCH ×2 (08:03→19:22)
[2023-07-26] MEDS: HYDROmorphone 1 MG/ML 1 ML SYRINGE IVP PRN (10:09)
--- NOTE | 2023-07-26 10:47 | P.PN ---
Subjective Progress Note Date: 07/26/23 Principal diagnosis: Status post right total knee arthroplasty Patient is evaluated today at bedside, she is resting in her hospital bed, nursing is also at bedside. Patient still is having a lot of pain. She is taking Dilaudid 1 mg, [place] 7.5 mg, Percocet 5 mg and Vistaril 25 mg. She is also utilizing gabapentin and Flexeril at nighttime. Patient has a history of fibromyalgia which she does take the gabapentin and Flexeril. Physical therapy and nursing and posterior to the patient continues to ambulate well. She has been urinating with no difficulty. She denies headaches, lightheadedness, chest pain or shortness of breath Objective - Vital Signs Vital signs: Vital Signs Temp 98.0 F 07/26/23 07:08 Pulse 86 07/26/23 08:12 Resp 19 07/26/23 07:08 BP 143/86 07/26/23 07:08 Pulse Ox 96 07/26/23 08:05 FiO2 Intake & Output 07/25/23 07/26/23 07/26/23 18:59 06:59 18:59 Intake Total 210 Balance 210 Intake: Intake, IV Titration 210 Amount Lactated Ringers 1,000 ml 160 @ 20 mls/hr IV .Q24H [facility] Rx#:[id number] ceFAZolin 2 gm In Sodium 50 Chloride 0.9% 50 ml @ 100 mls/hr IVPB Q8H [facility] Rx#: [id number] Other: Voiding Method External Catheter Toilet # Voids 1 - Exam Right lower extremity: Incision is clean, dry, and intact. The exofin fusion tape is in good condition. There is minimal soft tissue swelling and ecchymosis surrounding the medial and lateral aspects of the incision. Calf is soft, no tenderness with palpation. Plantar flexion, dorsiflexion, EHL, FHL are intact. Sensory exam to light touch throughout the extremity is intact, dorsal pedis pulses 2+. - Labs CBC & Chem 7: 07/25/23 04:39 Assessment and Plan Assessment: Postoperative day #2 status post right total knee arthroplasty Plan: Pain control, I had a discussion with both nursing and the patient today bedside will be changing her medication. We'll discontinue tramadol, [place] and Dilaudid. We will adjust Percocet to 7.5 mg/325 mg every 4 hours, continue Vistaril 25 mg every 4 hours. Did adjust gabapentin 300 mg twice a day, also continue Flexeril as needed. DVT prophylaxis, continue current medication Continue PT/OT, weight-bear as tolerated with walker Wound care instructions are discussed Medical recommendations appreciated Discharge planning: Plan for discharge to home after we achieve better pain control, possibly 07/27/2023 Time with Patient: Less than 30
--- NOTE | 2023-07-26 12:04 | P.PN ---
Subjective Progress Note Date: 07/26/23 Consult date: 07/25/23 Medical management hypertension, nicotine dependence Requesting physician: Jeremias Corona - Chief Complaint Osteoarthritis, status post surgical repair right knee - History of Present Illness This is 62-year-old female with past medical history significant for osteoarthritis , fibromyalgia, gastroesophageal reflux disease, hypertension, depression, ongoing nicotine dependence-since 1972, obesity ,status post right total knee arthroplasty. Tolerated procedure well. Currently reports pain this morning. PT pending. Denies chest pain, palpitations or shortness of breath. Maintaining O2 sats in the low 90s on room air with minimal tachycardia. Denies chest pain, palpitations or shortness of breath. Afebrile, WBC 13.25, hemoglobin 12.1, platelets 395. 07/26/2023 significant clinical improvement. Pain control improving. Maintaining O2 sats in the mid 90s on room air, utilizing nebulized bronchodilators, LABA ,incentive spirometer. PT/stairs pending. Afebrile. Pas sing flatus. Objective - Vital Signs Vital signs: Vital Signs Temp 98.0 F 07/26/23 07:08 Pulse 86 07/26/23 08:12 Resp 19 07/26/23 07:08 BP 143/86 07/26/23 07:08 Pulse Ox 96 07/26/23 08:05 FiO2 Intake & Output 07/25/23 07/26/23 07/26/23 18:59 06:59 18:59 Intake Total 210 Output Total 300 Balance 210 -300 Intake: Intake, IV Titration 210 Amount Lactated Ringers 1,000 ml 160 @ 20 mls/hr IV .Q24H [facility] Rx#:[id number] ceFAZolin 2 gm In Sodium 50 Chloride 0.9% 50 ml @ 100 mls/hr IVPB Q8H [facility] Rx#: [id number] Output: Urine 300 Other: Voiding Method External Catheter Toilet # Voids 1 - Exam PHYSICAL EXAM: VITAL SIGNS: [As above] GENERAL: Alert and oriented 3, sitting up in chair, no acute distress. HEENT: Normocephalic,Conjunctivae normal. eyes normal. MMM. NECK: Supple, No JVD. CARDIOVASCULAR: S1, S2 regular. No murmur RESPIRATION: Unlabored, equal air entry, Breath sounds diminished in the bases. ABDOMEN: Soft, nondistended, nontender . No guarding. no masses palpable. +BS LEGS: Right knee dressing clean dry and intact, denies calf tenderness, positive DP pulse. NERVOUS SYSTEM: Cranial N 2-12 grossly normal. No focal deficits. Strength and sensation grossly intact. Skin: Warm and dry, no rash. - Labs CBC & Chem 7: 07/25/23 04:39 Assessment and Plan Assessment: Right knee OA, status post right total knee arthroplasty Atelectasis, postoperative, expected outcome Acute hypoxic respiratory failure secondary to the above Gastroesophageal reflux disease Fibromyalgia Hypertension Depression Ongoing nicotine dependence COPD Plan: Continue on current medication regime ,monitoring and symptomatic treatment. Pain management and DVT prophylaxis as per primary. Discharge planning in progress as per orthopedic surgery. Maintain aggressive pulmonary toileting with incentive spirometer reinforced. Smoking cessation reinforced. PT pending. Follow-up with PCP in one week. The impression and plan of care has been dictated as directed. : I performed a history and examination of this patient, discussed the same with the dictator. I agree with the dictator's note ,documented as a scribe. Any additional findings or plans will be noted.
[2023-07-26] MEDS: oxyCODONE-APAP 7.5-325MG 1 EACH TAB PO PRN ×2 (15:55→20:14)
[2023-07-26] MEDS: CYCLOBENZAPRINE 10 MG TAB PO PRN (20:15)
[2023-07-26] MEDS: GABAPENTIN 300 MG CAP PO SCH (20:15)
[2023-07-26] MEDS: SENNOSIDES-DOCUSATE SODIUM 1 EACH TAB PO SCH (20:15)
[2023-07-27] MEDS: oxyCODONE-APAP 7.5-325MG 1 EACH TAB PO PRN ×4 (00:31→13:52)
[2023-07-27] MEDS: hydrOXYzine pamoate 25 MG CAP PO PRN ×4 (01:40→13:52)
[2023-07-27] MEDS: DULoxetine HCL 60 MG CAPSULE.DR PO SCH (08:24)
[2023-07-27] MEDS: LOSARTAN 50 MG TAB PO SCH (08:24)
[2023-07-27] MEDS: LORATADINE 10 MG TAB PO SCH (08:24)
[2023-07-27] MEDS: NICOTINE 14MG/24HR PATCH TRANSDERM SCH (08:24)
[2023-07-27] MEDS: GABAPENTIN 300 MG CAP PO SCH (08:24)
[2023-07-27] MEDS: RIVAROXABAN 10 MG TAB PO SCH (08:24)
[2023-07-27] MEDS: PANTOPRAZOLE 40 MG TABLET PO SCH (08:25)
[2023-07-27] MEDS: SYMBICORT 80-4.5 MCG INHALER INHALATION SCH (08:28)
[2023-07-27] MEDS: IPRATROPIUM-ALBUTEROL 3 ML NEB INHALATION SCH ×3 (08:28→15:40)
--- NOTE | 2023-07-27 08:47 | XR ---
EXAMINATION TYPE: XR knee complete RT DATE OF EXAM: 07/26/2023 COMPARISON: NONE HISTORY: Pain TECHNIQUE: 07/24/2023 FINDINGS: Small amount of soft tissue edema and emphysema which likely is postsurgical. Mild diffuse osteopenia. Total knee postoperative change appears intact. No acute fracture IMPRESSION: No acute fracture.
--- NOTE | 2023-07-27 09:11 | XR ---
EXAMINATION TYPE: XR wrist complete RT DATE OF EXAM: 07/27/2023 COMPARISON: NONE HISTORY: 61-year-old female fall and pain TECHNIQUE: 4 views FINDINGS: Moderate degenerative change first CMC and triscaphe joints. The radiocarpal and distal rad ioulnar joint as well as the midcarpal compartment appear intact. No acute fracture, subluxation, or dislocation seen. IMPRESSION: Moderate osteoarthritic change at the base of the thumb. No acute osseous abnormality seen.
--- NOTE | 2023-07-27 09:20 | P.DS ---
Providers Date of admission: 07/26/23 10:47 Expected date of discharge: 07/27/23 Attending physician: Jeremias Corona Consults: 07/24/23 12:26 Consult Physician Routine Consulting Provider: Valerio Banegas Reason/Comments: medical management s/p RTKA Do you want consulting provider notified?: Yes Primary care physician: Valerio Banegas Hospital Course: Date of admission: 07/24/2023 Date of discharge: 07/27/2023 Admission diagnosis: Right knee osteoarthritis Discharge diagnosis: Same Attending physician: Dr. Corona Surgical procedures: Right total knee arthroplasty Brief history: Patient is a 62-year-old female with a history of progressive primary right knee osteoarthritis. At this point patient has failed conservative treatment measures and has opted to proceed with a elective right total knee arthroplasty. Hospital course: Details of patient's surgery can be found in operative report. Patient tolerated the procedure well and was subsequently transported to orthopedic floor. Patient's orthopeidc and medical care was provided daily. Patient had daily laboratory tests performed for evaluation of overall blood counts. Patient had daily physical therapy to include strengthening range of motion as well as education with walker ambulation. Patient was treated with Xarelto for their postoperative DVT prophylaxis during their inpatient stay. Patient was noted to have a relatively uneventful postoperative course. Patient reported satisfactory pain control with oral pain medications by postoperative day 3. Patient showed satisfactory progress with physical therapy. Patient moved steadily through the program and had no difficulty meeting the goals by postoperative day 3. Given patient's otherwise satisfactory course and having met physical therapy goals, plan is to discharge patient home with health services on postoperative day 3. Discharge condition/disposition: Patient will be discharged home with health services in stable condition. Discharge medications: Instructions are given on resumption of patient's normal daily medications per primary care recommendation, in addition patient will be prescribed Percocet; Eliquis 2.5 mg twice a day 2 weeks; Vistaril; senna. Discharge instructions: 1. Wound care and infection precautions, keep incision dry and covered while showering, no lotions, creams, moisturizers. No soaking, tubs, pools, hottubs. Do not scrub over the incision. 2. Weight-bear as tolerated with walker / cane until follow-up. 3. Ice and elevate when necessary. Do not exceed 20 minutes per hour with ice pack. 4. Utilize compression sleeve until seen at first follow up appointment. 5. Visiting nursing care. 6. Home physical therapy including home CPM. 7. Pain meds and anticoagulants per prescription. 8. Pain medication has potential to cause constipation. Increase oral fluid and fiber intake. Contact primary care provider if you have not had a bowel movement within 48 hours after discharge 9. No anti-inflammatory medication until discussed at first post operative visit, this including Motrin, Aleve, Mobic, Diclofenac. 10. Follow up in office at 2 weeks postop with Fawad Teague PA-C / Rashi Roper PA-C 11. Follow up with your primary care doctor 7-10 days after discharge. 12. Contact [facility] with any questions, . Assessment: Right knee osteoarthritis Procedures: Right total knee arthroplasty Patient Condition at Discharge: Good Plan - Discharge Summary Discharge Rx Participant: No New Discharge Prescriptions: New Apixaban [Eliquis] 2.5 mg PO BID #60 tab oxyCODONE HCL/ACETAMINOPHEN [Oxycodone-Acetaminophn 7.5-325] 1 each PO Q6H #28 tab Sennosides/Docusate Sodium [Senna Plus 8.6-50 mg Softgel] 1 each PO DAILY #20 capsule hydrOXYzine pamoate [Vistaril] 50 mg PO TID #21 capsule No Action Losartan Potassium 100 mg PO QAM Glucosam/Pernell-Msm1/C/Daniel/Bosw [Glucosamine-Chondroitin Tablet] 1 tab PO QAM DULoxetine HCL [Cymbalta] 60 mg PO QAM Cyclobenzaprine [Flexeril] 10 mg PO HS PRN PRN Reason: Muscle Pain Acetaminophen Tab [Tylenol] 325 - 650 mg PO DIRECTED PRN PRN Reason: Pain Multivitamins, Thera [Multivitamin (formulary)] 1 tab PO QAM Gabapentin [Neurontin] 300 mg PO HS Diclofenac Sodium [Voltaren] 50 mg PO BID Omeprazole 20 mg PO DAILY Discharge Medication List Acetaminophen Tab [Tylenol] 325 - 650 mg PO DIRECTED PRN 07/12/16 [History] Cyclobenzaprine [Flexeril] 10 mg PO HS PRN 07/12/16 [History] DULoxetine HCL [Cymbalta] 60 mg PO QAM 07/12/16 [History] Glucosam/Pernell-Msm1/C/Daniel/Bosw [Glucosamine-Chondroitin Tablet] 1 tab PO QAM 07/12/16 [History] Losartan Potassium 100 mg PO QAM 07/12/16 [History] Multivitamins, Thera [Multivitamin (formulary)] 1 tab PO QAM 11/19/20 [History] Diclofenac Sodium [Voltaren] 50 mg PO BID 07/20/23 [History] Gabapentin [Neurontin] 300 mg PO HS 07/20/23 [History] Omeprazole 20 mg PO DAILY 07/24/23 [History] Apixaban [Eliquis] 2.5 mg PO BID #60 tab 07/27/23 [Rx] Sennosides/Docusate Sodium [Senna Plus 8.6-50 mg Softgel] 1 each PO DAILY #20 capsule 07/27/23 [Rx] hydrOXYzine pamoate [Vistaril] 50 mg PO TID #21 capsule 07/27/23 [Rx] oxyCODONE HCL/ACETAMINOPHEN [Oxycodone-Acetaminophn 7.5-325] 1 each PO Q6H #28 tab 07/27/23 [Rx] Follow up Appointment(s)/Referral(s): Rashi Roper, PAC [PHYSICIAN SAND CONDITIONER MACHINE] - 2 Weeks [facility],Equipment [NON-STAFF] - As Needed (*Please call [facility] once home to arrange delivery of the Continuous Passive Motion (CPM) machine. ) [facility] Visiting Nurse, [NON-STAFF] - 1-2 Days ([facility] will call you to schedule your in home nursing and physical therapy visits. ) Patient Instructions/Handouts: *Surgery [facility] - On-Q Pain Pump Discharge Instructions, Knee Replacement (DC) Activity/Diet/Wound Care/Special Instructions: Orthopedic Discharge Instructions: 1. Wound care and infection precautions, keep incision dry and covered while showering, no lotions, creams, moisturizers. No soaking, pools, hot tubs. Do not scrub over incision. 2. Weight-bear as tolerated with walker / cane until follow-up. 3. Ice and elevate when necessary. Do not exceed 20 minutes per hour with ice pack. 4. Utilize compression sleeve until seen at first follow up appointment. 5. Pain meds and anticoagulants per prescription. 6. Pain medication has potential to cause constipation. Increase oral fluid and fiber intake. Contact primary care provider if you have not had a bowel movement within 48 hours after discharge. 7. No anti-inflammatory medication until discussed at first post operative visit, this including Motrin, Aleve, Mobic, Diclofenac. 8. Follow up in office at 2 weeks postop with Fawad Teague PA-C / Rashi Roper PA-C 9. Follow up with your primary care doctor 7-10 days after discharge. 10. Contact [facility] with any questions, . Keep incision clean, dry, intact. While showering, cover fusion tape with Saran wrap. Keep fusion tape on until follow-up appointment in office in 2 weeks. Discharge Disposition: HOME WITH HOME HEALTH SERVICES
--- NOTE | 2023-07-27 09:24 | P.PN ---
Subjective Progress Note Date: 07/27/23 Principal diagnosis: Right knee osteoarthritis Patient was seen at bedside this morning lying semirecumbent position. Patient says she did have a fall yesterday between the chair on the bed. Patient says she has fell hitting her right knee and right wrist. Patient is complaining of some right wrist pain. X-ray performed negative for any fractures. right knee components appear to be intact and stable. Right wrist shows some arthritis in the thumb. Negative for any fractures. Patient looking forward to going home later today. Patient does have a walker now for home. Patient denies any changes at this time. Patient denies chest pain, fever, shortness breath, nausea, vomiting, change in vision, loss of bowel/bladder control. Objective - Vital Signs Vital signs: Vital Signs Temp 98.4 F 07/27/23 07:16 Pulse 92 07/27/23 08:41 Resp 19 07/27/23 07:16 BP 140/84 07/27/23 07:16 Pulse Ox 94 L 07/27/23 07:16 FiO2 Intake & Output 07/26/23 07/27/23 07/27/23 18:59 06:59 18:59 Output Total 300 Balance -300 Output: Urine 300 Other: Voiding Method Toilet # Voids 4 - Exam Right knee: Incision is clean, dry, and intact. The exofin fusion tape is in good condition. There is minimal soft tissue swelling and ecchymosis surrounding the medial and lateral aspects of the incision. Calf is soft, no tenderness with palpation. Plantar flexion, dorsiflexion, EHL, FHL are intact. Sensory exam to light touch throughout the extremity is intact, dorsal pedis pulses 2+. - Labs CBC & Chem 7: 07/25/23 04:39 Assessment and Plan Assessment: 1. Right knee osteoarthritis - Postop day 3 status post right total knee arthroplasty Plan: 1. Right knee osteoarthritis - right total knee arthroplasty performed 07/24/2023. Patient stable at bedside this morning. xr right knee and wrist negative for any fracture/dislocations. PT/OT recommendations. Discharge home today with health services.. 2 . Appreciate medical management 3. Pain management - Percocet; Vistaril; Flexeril; gabapentin 4. DVT prophylaxis - Xarelto in hospital. Going home with Eliquis 2.5 mg twice a day 2 weeks 5. GI prophylaxis - senna 6. PT/OT - weightbearing as tolerated with walker 7. Encourage incentive spirometer use 8. Discharge planning - discharge home with health services today Time with Patient: Less than 30
[2023-07-27 09:54] LABS: Basophils # (A) 0.07 X 10*3/uL (0.00-0.10); Basophils % (A) 0.7 %; Eosinophils # (A) 0.16 X 10*3/uL (0.04-0.35); Eosinophils % (A) 1.5 %; HCT 34.1 % (37.2-46.3); HGB 10.9 d/dL (12.0-15.0); Lymphocytes # (A) 2.99 X 10*3/uL (0.90-5.00); Lymphocytes % (A) 28.4 %; MCH 31.9 pg (27.0-32.0); MCV 99.7 FL (80.0-97.0); Mean Platelet Volume 10.2 FL (9.5-12.2); Monocytes % (A) 7.6 %; NRBC Per 100 WBC 0 X 10*3/uL (0.00-0.01); Neutrophils # (A) 6.47 X 10*3/uL (1.80-7.70); Neutrophils % (A) 61.3 %; Platelet Count 320 X 10*3/uL (140-440); RBC 3.42 X 10*6/uL (4.10-5.20); RDW 13.3 % (11.5-14.5); WBC 10.54 X 10*3/uL (4.50-10.00)
--- NOTE | 2023-07-27 11:10 | P.PN ---
Subjective Progress Note Date: 07/27/23 Consult date: 07/25/23 Medical management hypertension, nicotine dependence Requesting physician: Jeremias Corona - Chief Complaint Osteoarthritis, status post surgical repair right knee - History of Present Illness This is 62-year-old female with past medical history significant for osteoarthritis , fibromyalgia, gastroesophageal reflux disease, hypertension, depression, ongoing nicotine dependence-since 1972, obesity ,status post right total knee arthroplasty. Tolerated procedure well. Currently reports pain this morning. PT pending. Denies chest pain, palpitations or shortness of breath. Maintaining O2 sats in the low 90s on room air with minimal tachycardia. Denies chest pain, palpitations or shortness of breath. Afebrile, WBC 13.25, hemoglobin 12.1, platelets 395. 07/26/2023 significant clinical improvement. Pain control improving. Maintaining O2 sats in the mid 90s on room air, utilizing nebulized bronchodilators, LABA ,incentive spirometer. PT/stairs pending. Afebrile. Pas sing flatus. 07/27/2023 reports yesterday ambulated back to bed, misjudged distance while attempting to sit down on bed, slipped down to the floor. She further states she hit her right knee and right wrist. X-rays obtained of both extremities, reviewed by orthopedics surgery reporting stable, negative for fractures. Pain medication regimen further adjusted with better control of pain today. P articipate in with PT yesterday. Afebrile, T-max 99, WBC 10.5 denies chest pain, palpitations or shortness of breath. Maintaining O2 sats in the mid 90s on room air. Denies lightheadedness, dizziness or focal deficits. Good diet intake, consuming 50-75%, no nausea vomiting or diarrhea. Passing flatus. Objective - Vital Signs Vital signs: Vital Signs Temp 98.4 F 07/27/23 07:16 Pulse 92 07/27/23 08:41 Resp 19 07/27/23 07:16 BP 140/84 07/27/23 07:16 Pulse Ox 94 L 07/27/23 07:16 FiO2 Intake & Output 07/26/23 07/27/23 07/27/23 18:59 06:59 18:59 Output Total 300 Balance -300 Output: Urine 300 Other: Voiding Method Toilet # Voids 4 2 - Exam PHYSICAL EXAM: VITAL SIGNS: [As above] GENERAL: Alert and oriented 3, sitting up in bed, no acute distress. HEENT: Normocephalic,Conjunctivae normal. eyes normal. MMM. NECK: Supple, No JVD. CARDIOVASCULAR: S1, S2 regular. No murmur RESPIRATION: Unlabored, equal air entry, clear to auscultation. ABDOMEN: Soft, nondistended, nontender . No guarding. +BS LEGS: Right knee dressing clean dry and intact, denies calf tenderness, positive DP pulse. NERVOUS SYSTEM: Cranial N 2-12 grossly normal. No focal deficits. Strength and sensation grossly intact. Skin: Warm and dry, no rash. - Labs CBC & Chem 7: 07/27/23 05:21 Labs: Abnormal Lab Results - Last 24 Hours (Table) 07/27/23 Range/Units 05:21 WBC 10.54 H (4.50-10.00) X 10*3/uL RBC 3.42 L (4.10-5.20) X 10*6/uL Hgb 10.9 L (12.0-15.0) d/dL Hct 34.1 L (37.2-46.3) % MCV 99.7 H (80.0-97.0) FL Assessment and Plan Assessment: Right knee OA, status post right total knee arthroplasty Atelectasis, postoperative, expected outcome Acute hypoxic respiratory failure secondary to the above, resolved Gastroesophageal reflux disease Fibromyalgia Hypertension Depression Ongoing nicotine dependence, smoking cessation reinforced. COPD Morbid Obesity, BMI 40. Plan: Continue on current medication regime ,monitoring and symptomatic treatment. Pain management and DVT prophylaxis as per primary. Continue aggressive pulmonary toileting with incentive spirometer reinforced. Discharge planning for today as per primary. Follow-up with PCP in one week. The impression and plan of care has been dictated as directed. : I performed a history and examination of this patient, discussed the same with the dictator. I agree with the dictator's note ,documented as a scribe. Any additional findings or plans will be noted.
[2023-07-27 14:56] VITALS: BP 122/79; PULSE 114; RESP 18; TEMP 98.3
== END 2023-07-27 16:07 | disposition home health service (06) | DRG 469 ==
LOC: OR 08:49 → 4SSUR 12:38 → OR 07-25 10:05 → 4SSUR 07-25 10:05 → INTOOBSV 07-26 10:47 → OBSVTOIN 07-26 10:47
PROVIDERS: ADMIT Orthopaedic Surgery; ATTEND Orthopaedic Surgery
PROC: 0SRC0J9 Replacement of Right Knee Joint with Synthetic Substitute, Cemented, Open Approach (ICD-10-PCS; principal; 2023-07-26)
DX: M17.11 Unilateral primary osteoarthritis, right knee (principal); J96.01 Acute respiratory failure with hypoxia; Z68.41 Body mass index [BMI] 40.0-44.9, adult; E66.01 Morbid (severe) obesity due to excess calories; F17.200 Nicotine dependence, unspecified, uncomplicated; F32.A Depression, unspecified; I10 Essential (primary) hypertension; J44.9 Chronic obstructive pulmonary disease, unspecified; K21.9 Gastro-esophageal reflux disease without esophagitis; M79.7 Fibromyalgia; M81.0 Age-related osteoporosis without current pathological fracture; W19.XXXA Unspecified fall, initial encounter; Z71.6 Tobacco abuse counseling; Z79.899 Other long term (current) drug therapy; Z88.8 Allergy status to other drugs, medicaments and biological substances; Z88.0 Allergy status to penicillin; Z88.1 Allergy status to other antibiotic agents
CPT/HCPCS: 64448; 64999; 85025; 94640

== ENCOUNTER 2023-07-27 23:49 | Observation (INO) | payer BC ==
[2023-07-28] MEDS ORDERED: HYDROmorphone 1 MG/ML 1 ML SYRINGE IM STA (00:02)
--- NOTE | 2023-07-28 00:30 | ED ---
Extremity Problem HPI - General Chief complaint: Extremity Problem,Nontraumatic Stated complaint: Knee pain Time Seen by Provider: 07/27/23 23:54 Source: family Mode of arrival: wheelchair Limitations: no limitations - History of Present Illness Initial comments: 62-year-old female presenting with chief complaint of right knee pain. Patient had a total knee arthroplasty on 07/24. She was discharged from our facility on 07/27. She states that she has been unable to tolerate the pain at home. She is taking Percocet and gabapentin. No fevers or chills. No redness or increased swelling. No change in the pain. - Related Data Home Medications Medication Instructions Recorded Confirmed Acetaminophen Tab [Tylenol] 325 - 650 mg PO DIRECTED PRN 07/12/16 07/24/23 Cyclobenzaprine [Flexeril] 10 mg PO HS PRN 07/12/16 07/24/23 DULoxetine HCL [Cymbalta] 60 mg PO QAM 07/12/16 07/24/23 Glucosam/Pernell-Msm1/C/Daniel/Bosw 1 tab PO QAM 07/12/16 07/24/23 [Glucosamine-Chondroitin Tablet] Losartan Potassium 100 mg PO QAM 07/12/16 07/24/23 Multivitamins, Thera [Multivitamin 1 tab PO QAM 11/19/20 07/24/23 (formulary)] Diclofenac Sodium [Voltaren] 50 mg PO BID 07/20/23 07/24/23 Gabapentin [Neurontin] 300 mg PO HS 07/20/23 07/24/23 Omeprazole 20 mg PO DAILY 07/24/23 07/24/23 Previous Rx's Medication Instructions Recorded Apixaban [Eliquis] 2.5 mg PO BID #60 tab 07/27/23 Sennosides/Docusate Sodium [Senna 1 each PO DAILY #20 capsule 07/27/23 Plus 8.6-50 mg Softgel] hydrOXYzine pamoate [Vistaril] 50 mg PO TID #21 capsule 07/27/23 oxyCODONE HCL/ACETAMINOPHEN 1 each PO Q6H #28 tab 07/27/23 [Oxycodone-Acetaminophn 7.5-325] Allergies Allergy/AdvReac Type Severity Reaction Status Date / Time erythromycin base Allergy stomach Verified 07/27/23 23:53 irritation Penicillins AdvReac hands Verified 07/27/23 23:53 intching Review of Systems ROS Statement: Those systems with pertinent positive or pertinent negative responses have been documented in the HPI. ROS Other: All systems not noted in ROS Statement are negative. Past Medical History Past Medical History: Fibromyalgia, GERD/Reflux, Hypertension, Osteoarthritis (OA) Additional Past Medical History / Comment(s): 2016 Precancerous cells in R breast with lumpectomy and radiation, History of Any Multi-Drug Resistant Organisms: None Reported Past Surgical History: Breast Surgery, Orthopedic Surgery Additional Past Surgical History / Comment(s): Rt breast lumpectomy- preecancerous tissue06/13/16, RT BREAST CORE BX, RT KNEE MENISCUS REPAIR, LT FOOT SX/TENDON Past Anesthesia/Blood Transfusion Reactions: No Reported Reaction Past Psychological History: Depression Smoking Status: Current every day smoker Past Alcohol Use History: Occasional Past Drug Use History: None Reported - Past Family History Father Family Medical History: Cancer Additional Family Medical History / Comment(s): LIVER General Exam Limitations: no limitations General appearance: alert, in no apparent distress Head exam: Present: atraumatic, normocephalic, normal inspection Eye exam: Present: normal appearance, EOMI Neck exam: Present: normal inspection, full ROM Respiratory exam: Absent: respiratory distress Right Knee exam: Present: tenderness, swelling (Swelling consistent with postop state). Absent: erythema Neurovascular tendon exam: Present: no vascular compromise Neurological exam: Present: alert, oriented X3 Psychiatric exam: Present: normal affect, normal mood Skin exam: Present: warm, dry, intact, normal color. Absent: rash Course Vital Signs 07/27/23 23:51 Temperature 98 F Pulse Rate 105 H Respiratory 20 Rate Blood Pressure 139/73 O2 Sat by Pulse 97 Oximetry Medical Decision Making - Medical Decision Making Was pt. sent in by a medical professional or institution (, PA, IT ASSISTANT, urgent care, hospital, or correction...) When possible be specific @ -No Did you speak to anyone other than the patient for history (EMS, parent, family, police, friend...)? What history was obtained from this source @ -No Did you review nursing and triage notes (agree or disagree)? Why? @ -I reviewed and agree with nursing and triage notes Were old charts reviewed (outside hosp., previous admission, EMS record, old EKG, old radiological studies, urgent care reports/EKG's, correction records)? Report findings @ -Reviewed the patient's discharge summary from earlier today Differential Diagnosis (chest pain, altered mental status, abdominal pain women, abdominal pain men, vaginal bleeding, weakness, fever, dyspnea, syncope, headache, dizziness, GI bleed, back pain, seizure, CVA, palpatations, mental health, musculoskeletal)? @ -Differential Musculoskeletal Muscular strain, contusion, ligament sprain, fracture, arthritis, septic arthritis, bursitis, cellulitis, muscle spasm, nerve compression, DVT, arterial occlusion, herpes zoster, electrolyte abnormality, tumor.... This is not meant to be in all inclusive list EKG interpreted by me (3pts min.). @ -As above X-rays interpreted by me (1pt min.). @ -None done CT interpreted by me (1pt min.). @ -None done U/S interpreted by me (1pt. min.). @ -None done What testing was considered but not performed or refused? (CT, X-rays, U/S, labs)? Why? @ -None What meds were considered but not given or refused? Why? @ -None Did you discuss the management of the patient with other professionals (professionals i.e. , PA, IT ASSISTANT, lab, RT, psych nurse, family welfare social work professor, [employer] department supervisor, teacher, classification officer, manager case)? Give summary @ -I spoke with Fawad Teague from orthopedics who accepted admission Was smoking cessation discussed for >3mins.? @ -No Was critical care preformed (if so, how long)? @ -No Were there social determinants of health that impacted care today? How? (Homelessness, low income, unemployed, alcoholism, drug addiction, transportation, low edu. Level, literacy, decrease access to med. care, care home, rehab)? @ -No Was there de-escalation of care discussed even if they declined (Discuss DNR or withdrawal of care, Hospice)? DNR status @ -No What co-morbidities impacted this encounter? (DM, HTN, Smoking, COPD, CAD, Cancer, CVA, ARF, Chemo, Hep., AIDS, mental health diagnosis, sleep apnea, morbid obesity)? @ -None Was patient admitted / discharged? Hospital course, mention meds given and route, prescriptions, significant lab abnormalities, going to OR and other pertinent info. @ -62-year-old female presenting with chief complaint of knee pain. Patient was discharged earlier today after total right knee arthroplasty. She states that she does not feel that she was ready to go home yet. She is unable to tolerate the pain at home and pain is not well managed by Percocet and gabapentin. She states that she is unable to function at home and refuses to go home at this time due to her pain. No redness or increased swelling, inspection of the knee appears consistent with the postop state. I spoke with orthopedics who were agreeable with admission for pain control. Patient is agreeable with this plan. I discussed this case with my attending Dr. Griffith Undiagnosed new problem with uncertain prognosis? @ -No Drug Therapy requiring intensive monitoring for toxicity (Heparin, Nitro, Insulin, Cardizem)? @ -No Were any procedures done? @ -No Diagnosis/symptom? @ -Postoperative pain Acute, or Chronic, or Acute on Chronic? @ -Acute Uncomplicated (without systemic symptoms) or Complicated (systemic symptoms)? @ -Complicated Side effects of treatment? @ -No Exacerbation, Progression, or Severe Exacerbation? @ -No Poses a threat to life or bodily function? How? (Chest pain, [place], [place], pneumonia, PE, COPD, DKA, ARF, appy, cholecystitis, CVA, Diverticulitis, Homicidal, Suicidal, threat to staff... and all critical care pts) @ -No Disposition Clinical Impression: Post-op pain, Status post total right knee replacement Disposition: ADMITTED IP TO THIS HOSP Condition: Good Time of Disposition: 01:43
[2023-07-28] MEDS ORDERED: HYDROmorphone 1 MG/ML 1 ML SYRINGE IVP PRN (01:43)
[2023-07-28] MEDS ORDERED: IBUPROFEN 400 MG TAB PO PRN (01:43)
[2023-07-28] MEDS ORDERED: NALOXONE 0.4 MG/ML 1 ML VIAL IV PRN (01:43)
[2023-07-28] MEDS: HYDROcodone/APAP 5-325MG 1 EACH TAB PO PRN ×2 (04:59→10:13)
[2023-07-28 07:11] LABS: Basophils # (A) 0.1 k/uL (0-0.2); Basophils % (A) 1 %; Eosinophils # (A) 0.2 k/uL (0-0.7); Eosinophils % (A) 1 %; HGB 11.9 gm/dL (11.4-16.0); Lymphocytes # (A) 2.6 k/uL (1.0-4.8); Lymphocytes % (A) 21 %; MCH 32.3 pg (25.0-35.0); MCHC 32.2 g/dL (31.0-37.0); MCV 100.1 fL (80.0-100.0); Mean Platelet Volume 8.6; Monocytes # (A) 0.7 k/uL (0-1.0); Monocytes % (A) 6 %; Neutrophils # (A) 8.5 k/uL (1.3-7.7); Neutrophils % (A) 69 %; Platelet Count 430 k/uL (150-450); RDW 12.6 % (11.5-15.5); WBC 12.3 k/uL (3.8-10.6)
[2023-07-28] MEDS: GABAPENTIN 300 MG CAP PO SCH ×2 (12:01→17:51)
[2023-07-28] MEDS: APIXABAN 2.5 MG TABLET PO SCH ×2 (12:01→19:50)
[2023-07-28] MEDS ORDERED: HYDROmorphone 0.5 MG/0.5 ML SYRINGE IVP PRN (12:45)
--- NOTE | 2023-07-28 12:56 | P.HPOR ---
History of Present Illness H&P Date: 07/28/23 Chief Complaint: Difficulty with ADLs, postoperative pain Patient is a 62-year-old female who had a right total knee arthroplasty on 07/24/2023 at [facility] with Dr. Corona. Patient was noted to have significant difficulties with pain control after the surgery. Multiple medications were adjusted during her hospital stay. Patient ended up improving through her hospital stay, along with her physical therapy. She was discharged home on 07/27/2023. Patient presented back to the hospital on 07/28/2023 with difficulty with ADLs along with significant postoperative pain. I was contacted by the emergency room staff regarding this patient, patient was admitted under our care internal medicine placed on consult for medical management. Patient was evaluated in the emergency room, she is resting in her hospital bed. Patient states that when she was home and is very difficult for her and her family to help her around. She was having a very difficult time ambulating along with getting in and out of bed on her own. She states that the pain also was. Hard to deal with the medications that she was placed on. She's been taking the Percocet 7.5 mg/325 mg, gabapentin 300 mg, Vistaril 25 mg and Flexeril 10 mg. Patient admits she hasn't had a bowel movement since before surgery. She denies any significant abdominal pain at this time. She notes pain in her knee when she attempts to ambulate. She has no other orthopedic complaints at this time. Review of Systems Constitutional: Reports as per HPI Past Medical History Past Medical History: Fibromyalgia, GERD/Reflux, Hypertension, Osteoarthritis (OA) Additional Past Medical History / Comment(s): 2016 Precancerous cells in R breast with lumpectomy and radiation, History of Any Multi-Drug Resistant Organisms: None Reported Past Surgical History: Breast Surgery, Orthopedic Surgery Additional Past Surgical History / Comment(s): Rt breast lumpectomy- preecancerous tissue06/13/16, RT BREAST CORE BX, RT KNEE MENISCUS REPAIR, LT FOOT SX/TENDON Past Anesthesia/Blood Transfusion Reactions: No Reported Reaction Past Psychological History: Depression Smoking Status: Current every day smoker Past Alcohol Use History: Occasional Past Drug Use History: None Reported - Past Family History Father Family Medical History: Cancer Additional Family Medical History / Comment(s): LIVER Medications and Allergies Home Medications Medication Instructions Recorded Confirmed Type Acetaminophen Tab [Tylenol] 325 - 650 mg PO Q6H PRN 07/12/16 07/28/23 History Cyclobenzaprine [Flexeril] 10 mg PO HS 07/12/16 07/28/23 History DULoxetine HCL [Cymbalta] 60 mg PO DAILY 07/12/16 07/28/23 History Glucosam/Pernell-Msm1/C/Daniel/Bosw 1 tab PO DAILY 07/12/16 07/28/23 History [Glucosamine-Chondroitin Tablet] Losartan Potassium 100 mg PO DAILY 07/12/16 07/28/23 History Multivitamins, Thera [Multivitamin 1 tab PO DAILY 11/19/20 07/28/23 History (formulary)] Diclofenac Sodium [Voltaren] 50 mg PO BID 07/20/23 07/28/23 History Gabapentin [Neurontin] 300 mg PO HS 07/20/23 07/28/23 History Omeprazole 20 mg PO DAILY 07/24/23 07/28/23 History Apixaban [Eliquis] 2.5 mg PO BID #60 tab 07/27/23 07/28/23 Rx Albuterol Inhaler [Ventolin Hfa 2 puff INHALATION RT-QID PRN 07/28/23 07/28/23 History Inhaler] Fexofenadine HCl [Maddy Allergy] 180 mg PO DAILY 07/28/23 07/28/23 History Sennosides/Docusate Sodium [Senna 1 tab PO DAILY 07/28/23 07/28/23 History Plus 8.6-50 mg Softgel] hydrOXYzine pamoate [Vistaril] 50 mg PO TID PRN 07/28/23 07/28/23 History oxyCODONE HCL/ACETAMINOPHEN 1 tab PO Q6H PRN 07/28/23 07/28/23 History [Oxycodone-Acetaminophn 7.5-325] Allergies Allergy/AdvReac Type Severity Reaction Status Date / Time Penicillins Allergy Itching of Verified 07/28/23 11: hands erythromycin base AdvReac stomach Verified 07/28/23 11:23 irritation Physical Examination Right lower extremity: Incision is clean, dry, and intact. The exofin fusion tape is in good condition. There is minimal soft tissue swelling and ecchymosis surrounding the medial and lateral aspects of the incision. Calf is soft, tenderness with palpation noted. Plantar flexion, dorsiflexion, EHL, FHL are intact. Sensory exam to light touch throughout the extremity is intact, dorsal pedis pulses 2+. Results - Labs Labs: Abnormal Lab Results - Last 24 Hours (Table) 07/28/23 Range/Units 03:00 WBC 12.3 H (3.8-10.6) k/uL RBC 3.70 L (3.80-5.40) m/uL MCV 100.1 H (80.0-100.0) fL Neutrophils # 8.5 H (1.3-7.7) k/uL H & H 07/28/23 Range/Units 03:00 Hgb 11.9 (11.4-16.0) gm/dL Hct 37.0 (34.0-46.0) % Result Diagrams: 07/28/23 03:00 Assessment and Plan Assessment: Difficulty with ADLs Postoperative pain Status post right total knee arthroplasty Fibromyalgia Other medical comorbidities Plan: Patient was admitted under our orthopedic service. Pain medications have been ordered and altered. Discussed with patient that there will be a level of discomfort that the pain medications are not able to completely resolve. Doppler ultrasound of the right lower extremity will be ordered to rule out DVT Icing and elevating techniques discussed Weight-bear as tolerated with walker PT/OT evaluation Patient needs to be out of bed and in her chair for all meals Wound care, monitor surgical dressing Medical recommendations Discharge planning: We'll discuss with case management the possibility of subacute rehab Time with Patient: Less than 30
[2023-07-28] MEDS ORDERED: ACETAMINOPHEN TAB 325 MG TAB PO PRN (12:58)
[2023-07-28] MEDS: oxyCODONE-APAP 7.5-325MG 1 EACH TAB PO PRN ×2 (14:11→21:20)
[2023-07-28] MEDS ORDERED: hydrOXYzine pamoate 25 MG CAP PO PRN (14:12)
[2023-07-28] MEDS ORDERED: ALBUTEROL NEBULIZED 2.5 MG/3 ML INHALATION PRN (14:12)
--- NOTE | 2023-07-28 14:23 | P.CONS ---
History of Present Illness - Reason for Consult Consult date: 07/28/23 - Chief Complaint Intractable pain - History of Present Illness * 62-year-old lady with past medical history significant for osteoarthritis, fibromyalgia, gastroesophageal reflux disease, hypertension depression history of nicotine dependence, patient underwent right knee arthroplasty and was disc harged home on 07/27/23. However patient complained of significant pain at home, she was discharged on Percocet and gabapentin. Secondary to intractable pain patient decided to come back to the emergency * Patient had significant difficulty with ADLs secondary to postoperative pain review of blood work obtained on admission showed mild leukocytosis which is likely reactive. Patient admitted under orthopedic surface with internal medicine team for comanaging. Patient denied associated fever, chills, nausea, vomiting, abdominal pain diarrhea or numbness in lower extremity * Upon further questioning patient's stated she did not fall however sliD through the bed and after that her pain was intractable REVIEW OF SYSTEMS: Right knee pain CONSTITUTIONAL: No fever, no malaise, no fatigue. HEENT: No recent visual problems or hearing problems. Denied any sore throat. CARDIOVASCULAR: No chest pain, orthopnea, PND, no palpitations, no syncope. PULMONARY: No shortness of breath, no cough, no hemoptysis. GASTROINTESTINAL: No diarrhea, no nausea, no vomiting, no abdominal pain. NEUROLOGICAL: No headaches, no weakness, no numbness. HEMATOLOGICAL: Denies any bleeding or petechiae. GENITOURINARY: Denies any burning micturition, frequency, or urgency. MUSCULOSKELETAL/RHEUMATOLOGICAL: Denies any joint pain, swelling, or any muscle pain. ENDOCRINE: Denies any polyuria or polydipsia. PHYSICAL EXAMINATION: GENERAL: The patient is alert and oriented x3, not in any acute distress. Well developed, well nourished. HEENT: Pupils are round and equally reacting to light. EOMI. No scleral icterus. No conjunctival pallor. Normocephalic, atraumatic. No pharyngeal erythema. No thyromegaly. CARDIOVASCULAR: S1 and S2 present. No murmurs, rubs, or gallops. PULMONARY: Chest is clear to auscultation, no wheezing or crackles. ABDOMEN: Soft, nontender, nondistended, normoactive bowel sounds. No palpable organomegaly. MUSCULOSKELETAL: Range of motion limited, right knee bandage. EXTREMITIES: No cyanosis, clubbing, or pedal edema. NEUROLOGICAL: Gross neurological examination did not reveal any focal deficits. SKIN: No rashes. * Past Medical History Past Medical History: Fibromyalgia, GERD/Reflux, Hypertension, Osteoarthritis (OA) Additional Past Medical History / Comment(s): 2016 Precancerous cells in R br east with lumpectomy and radiation, History of Any Multi-Drug Resistant Organisms: None Reported Past Surgical History: Breast Surgery, Orthopedic Surgery Additional Past Surgical History / Comment(s): Rt breast lumpectomy-pr eecancerous tissue06/13/16, RT BREAST CORE BX, RT KNEE MENISCUS REPAIR, LT FOOT SX/TENDON Past Anesthesia/Blood Transfusion Reactions: No Reported Reaction Past Psychological History: Depression Additional Psychological History / Comment(s): USES CYMBALTA FOR BOTH PAIN AND DEPRESSION Smoking Status: Current every day smoker Past Alcohol Use History: Occasional Additional Past Alcohol Use History / Comment(s): STARTED SMOKING AT AGE 14 (1972)<1PPD Past Drug Use History: None Reported - Past Family History Father Family Medical History: Cancer Additional Family Medical History / Comment(s): LIVER Medications and Allergies Home Medications Medication Instructions Recorded Confirmed Type Acetaminophen Tab [Tylenol] 325 - 650 mg PO Q6H PRN 07/12/16 07/28/23 History Cyclobenzaprine [Flexeril] 10 mg PO HS 07/12/16 07/28/23 History DULoxetine HCL [Cymbalta] 60 mg PO DAILY 07/12/16 07/28/23 History Glucosam/Pernell-Msm1/C/Daniel/Bosw 1 tab PO DAILY 07/12/16 07/28/23 History [Glucosamine-Chondroitin Tablet] Losartan Potassium 100 mg PO DAILY 07/12/16 07/28/23 History Multivitamins, Thera [Multivitamin 1 tab PO DAILY 11/19/20 07/28/23 History (formulary)] Diclofenac Sodium [Voltaren] 50 mg PO BID 07/20/23 07/28/23 History Gabapentin [Neurontin] 300 mg PO HS 07/20/23 07/28/23 History Omeprazole 20 mg PO DAILY 07/24/23 07/28/23 History Apixaban [Eliquis] 2.5 mg PO BID #60 tab 07/27/23 07/28/23 Rx Albuterol Inhaler [Ventolin Hfa 2 puff INHALATION RT-QID PRN 07/28/23 07/28/23 History Inhaler] Fexofenadine HCl [Maddy Allergy] 180 mg PO DAILY 07/28/23 07/28/23 History Sennosides/Docusate Sodium [Senna 1 tab PO DAILY 07/28/23 07/28/23 History Plus 8.6-50 mg Softgel] hydrOXYzine pamoate [Vistaril] 50 mg PO TID PRN 07/28/23 07/28/23 History oxyCODONE HCL/ACETAMINOPHEN 1 tab PO Q6H PRN 07/28/23 07/28/23 History [Oxycodone-Acetaminophn 7.5-325] Allergies Allergy/AdvReac Type Severity Reaction Status Date / Time Penicillins Allergy Itching of Verified 07/28/23 11:23 hands erythromycin base AdvReac stomach Verified 07/28/23 11:23 irritation Physical Exam Vitals: Vital Signs Temp Pulse Resp BP Pulse Ox 07/28/23 12:00 76 18 132/75 95 07/28/23 07:22 97.7 F 81 16 124/73 93 L 07/27/23 23:51 98 F 105 H 20 139/73 97 Intake and Output 07/27/23 07/28/23 07/28/23 22:59 06:59 14:59 Other: Weight 106.594 kg 106.594 kg Results CBC & Chem 7: 07/28/23 03:00 Labs: Abnormal Lab Results - Last 24 Hours (Table) 07/28/23 Range/Units 03:00 WBC 12.3 H (3.8-10.6) k/uL RBC 3.70 L (3.80-5.40) m/uL MCV 100.1 H (80.0-100.0) fL Neutrophils # 8.5 H (1.3-7.7) k/uL Assessment and Plan Assessment: Assessment and plan * Right knee osteoarthritis status post arthroplasty 07/24/23 , postoperative pain management * Hypertension * Depression * Fibromyalgia * Postprocedure leukocytosis reactive * Patient admitted under orthopedic service, internal medicine team to [facility] * Home medications reviewed and reconciled continue gabapentin, Flexeril, Dilaudid, Percocet * In regards to history of hypertension continue patient on Cozaar * Will need to work with physical therapy occupational therapy * CODE STATUS is full code * Encourage use of incentive spirometer * On Eliquis for DVT prophylaxis
--- NOTE | 2023-07-28 14:40 | US ---
EXAMINATION TYPE: US venous doppler duplex LE RT DATE OF EXAM: 07/28/2023 2:14 PM COMPARISON: NONE CLINICAL INDICATION: Female, 62 years old with history of calf pain, status post tka; Pain. Knee malik cassandra x 4 days ago. SIDE PERFORMED: Right TECHNIQUE: The lower extremity deep venous system is examined utilizing real time linear array sonog vannessa with graded compression, doppler sonography and color-flow sonography. VESSELS IMAGED: Common Femoral Vein Deep Femoral Vein Greater Saphenous Vein * Femoral Vein Popliteal Vein Small Saphenous Vein * Proximal Calf Veins (* superficial vessels) The deep venous system of the right lower extremity from the common femoral vein to the popliteal vei n is patent and compressible with augmentable flow throughout. IMPRESSION: No evidence of right lower extremity DVT from the common femoral vein to the popliteal vein.
[2023-07-28] MEDS: LOSARTAN 50 MG TAB PO SCH (15:35)
[2023-07-28] MEDS: LORATADINE 10 MG TAB PO SCH (15:35)
[2023-07-28] MEDS: SENNOSIDES-DOCUSATE SODIUM 1 EACH TAB PO SCH (15:35)
[2023-07-28] MEDS: DULoxetine HCL 60 MG CAPSULE.DR PO SCH (15:35)
[2023-07-28] MEDS: PANTOPRAZOLE 40 MG TABLET PO SCH (15:38)
[2023-07-28] MEDS: CYCLOBENZAPRINE 10 MG TAB PO SCH (19:50)
[2023-07-29] MEDS: GABAPENTIN 300 MG CAP PO SCH ×4 (00:42→21:18)
[2023-07-29 04:57] LABS: HGB 11.1 gm/dL (11.4-16.0); MCH 33.4 pg (25.0-35.0); MCHC 33.6 g/dL (31.0-37.0); MCV 99.2 fL (80.0-100.0); Mean Platelet Volume 7.4; Platelet Count 398 k/uL (150-450); RBC 3.32 m/uL (3.80-5.40); RDW 12.5 % (11.5-15.5); WBC 9.6 k/uL (3.8-10.6)
[2023-07-29] MEDS: oxyCODONE-APAP 7.5-325MG 1 EACH TAB PO PRN ×4 (06:30→21:18)
[2023-07-29] MEDS: LOSARTAN 50 MG TAB PO SCH (08:28)
[2023-07-29] MEDS: DULoxetine HCL 60 MG CAPSULE.DR PO SCH (08:28)
[2023-07-29] MEDS: PANTOPRAZOLE 40 MG TABLET PO SCH (08:28)
[2023-07-29] MEDS: LORATADINE 10 MG TAB PO SCH (08:29)
[2023-07-29] MEDS: APIXABAN 2.5 MG TABLET PO SCH ×2 (08:29→20:51)
[2023-07-29] MEDS: SENNOSIDES-DOCUSATE SODIUM 1 EACH TAB PO SCH (08:29)
[2023-07-29] MEDS ORDERED: SENNOSIDES-DOCUSATE SODIUM 1 EACH TAB PO SCH (09:00)
[2023-07-29 10:19] LABS: ALT 41 U/L (8-44); AST 38 U/L (13-35); Albumin 3.8 d/dL (3.8-4.9); Albumin/Globulin Ratio 1.73 Ratio (1.60-3.17); Alkaline Phosphatase 115 U/L (41-126); Blood Urea Nitrogen 16.3 mg/dL (9.0-27.0); Calcium 9.2 mg/dL (8.7-10.3); Carbon Dioxide 24.7 mmol/L (21.6-31.8); Chloride 101 mmol/L (96-109); Globulin 2.2 d/dL (1.6-3.3); Glucose 96 mg/dL (70-110); Potassium 4.4 mmol/L (3.5-5.5); Sodium 136 mmol/L (135-145); Total Bilirubin 0.6 mg/dL (0.3-1.2)
--- NOTE | 2023-07-29 13:19 | P.PN ---
Subjective Progress Note Date: 07/29/23 * 62-year-old lady with past medical history significant for osteoarthritis, fibromyalgia, gastroesophageal reflux disease, hypertension depression history of nicotine dependence, patient underwent right knee arthroplasty and was discharged home on 07/27/23. However patient complained of significant pain at home, she was discharged on Percocet and gabapentin. Secondary to intractable pain patient decided to come back to the emergency * Patient had significant difficulty with ADLs secondary to postoperative pain review of blood work obtained on admission showed mild leukocytosis which is likely reactive. Patient admitted under orthopedic surface with internal medicine team for comanaging. Patient denied associated fever, chills, nausea, vomiting, abdominal pain diarrhea or numbness in lower extremity * Upon further questioning patient's stated she did not fall however sliD through the bed and after that her pain was intractable * 07/29/23: Patient seen and evaluated bedside. Patient states right leg pain has improved denies fever, chills, nausea, vomiting. Requesting a nicotine patch Objective - Vital Signs Vital signs: Vital Signs Temp 98.0 F 07/29/23 07:00 Pulse 82 07/29/23 07:00 Resp 18 07/29/23 08:29 BP 123/73 07/29/23 07:00 Pulse Ox 93 L 07/29/23 07:00 FiO2 Intake & Output 07/28/23 07/29/23 07/29/23 18:59 06:59 18:59 Intake Total 60 Balance 60 Weight 106.594 kg Intake: Oral 60 Other: Voiding Method Toilet Toilet Toilet # Voids 2 # Bowel Movements 1 - Exam PHYSICAL EXAMINATION: GENERAL: The patient is alert and oriented x3, not in any acute distress. Well developed, well nourished. HEENT: Pupils are round and equally reacting to light. EOMI. No scleral icterus. No conjunctival pallor. Normocephalic, atraumatic. No pharyngeal erythema. No thyromegaly. CARDIOVASCULAR: S1 and S2 present. No murmurs, rubs, or gallops. PULMONARY: Chest is clear to auscultation, no wheezing or crackles. ABDOMEN: Soft, nontender, nondistended, normoactive bowel sounds. No palpable organomegaly. MUSCULOSKELETAL: Range of motion limited, right knee bandage. EXTREMITIES: No cyanosis, clubbing, or pedal edema. NEUROLOGICAL: Gross neurological examination did not reveal any focal deficits. SKIN: No rashes. - Labs CBC & Chem 7: 07/29/23 04:12 07/29/23 04:12 Labs: Abnormal Lab Results - Last 24 Hours (Table) 07/29/23 07/29/23 Range/Units 04:12 04:12 RBC 3.32 L (3.80-5.40) m/uL Hgb 11.1 L (11.4-16.0) gm/dL Hct 33.0 L (34.0-46.0) % Creatinine 0.5 L (0.6-1.5) mg/dL BUN/Creatinine Ratio 32.60 H (12.00-20.00) Ratio AST 38 H (13-35) U/L Total Protein 6.0 L (6.2-8.2) d/dL Assessment and Plan Assessment: Assessment and plan * Right knee osteoarthritis status post arthroplasty 07/24/23 , postoperative pain management * Hypertension * Depression * Fibromyalgia * Postprocedure leukocytosis reactive * Patient admitted under orthopedic service, internal medicine team to [facility] * Home medications reviewed and reconciled continue gabapentin, Flexeril, Dilaudid, Percocet * In regards to history of hypertension continue patient on Cozaar * Will need to work with physical therapy occupational therapy * CODE STATUS is full code * Encourage use of incentive spirometer * On Eliquis for DVT prophylaxis
[2023-07-29] MEDS: NICOTINE 21MG/24HR PATCH TRANSDERM SCH (14:24)
--- NOTE | 2023-07-29 14:26 | P.PN ---
Subjective Progress Note Date: 07/29/23 Principal diagnosis: Postoperative pain, status post right total knee arthroplasty Patient was evaluated today at bedside, she is resting in her hospital bed. Patient does seem more comfortable today. She was able to ambulate minimally today with physical therapy and aids, she has been utilizing a walker. She has no headaches, lightheadedness, chest pain, shortness of breath, fever or chills Objective - Vital Signs Vital signs: Vital Signs Temp 98.0 F 07/29/23 07:00 Pulse 82 07/29/23 07:00 Resp 18 07/29/23 14:00 BP 123/73 07/29/23 07:00 Pulse Ox 93 L 07/29/23 07:00 FiO2 Intake & Output 07/28/23 07/29/23 07/29/23 18:59 06:59 18:59 Intake Total 60 120 Balance 60 120 Weight 106.594 kg Intake: Oral 60 120 Other: Voiding Method Toilet Toilet Toilet # Voids 2 # Bowel Movements 1 - Exam Right lower extremity: Incision is clean, dry, and intact. The exofin fusion tape is in good condition . There is minimal soft tissue swelling and ecchymosis surrounding the medial and lateral aspects of the incision. Calf is soft, no tenderness with palpation. Plantar flexion, dorsiflexion, EHL, FHL are intact. Sensory exam to light touch throughout the extremity is intact, dorsal pedis pulses 2+. - Labs CBC & Chem 7: 07/29/23 04:12 07/29/23 04:12 Labs: Abnormal Lab Results - Last 24 Hours (Table) 07/29/23 07/29/23 Range/Units 04:12 04:12 RBC 3.32 L (3.80-5.40) m/uL Hgb 11.1 L (11.4-16.0) gm/dL Hct 33.0 L (34.0-46.0) % Creatinine 0.5 L (0.6-1.5) mg/dL BUN/Creatinine Ratio 32.60 H (12.00-20.00) Ratio AST 38 H (13-35) U/L Total Protein 6.0 L (6.2-8.2) d/dL Assessment and Plan Assessment: Difficulty with ADLs Postoperative pain Status post right total knee arthroplasty Fibromyalgia Other medical comorbidities Plan: Pain control, continue current medications. Avoid IV narcotics as best as possible Doppler was negative for DVT of the right lower extremity Icing and elevating techniques discussed Weight-bear as tolerated with walker PT/OT evaluation Patient needs to be out of bed and in her chair for all meals Wound care, monitor surgical dressing Medical recommendations Discharge planning: Plan for discharge to subacute rehab in the next 2448 hours Time with Patient: Less than 30
[2023-07-29] MEDS: CYCLOBENZAPRINE 10 MG TAB PO SCH (20:51)
[2023-07-30] MEDS: oxyCODONE-APAP 7.5-325MG 1 EACH TAB PO PRN ×3 (01:28→12:46)
[2023-07-30] MEDS: LOSARTAN 50 MG TAB PO SCH (07:45)
[2023-07-30] MEDS: NICOTINE 21MG/24HR PATCH TRANSDERM SCH (07:45)
[2023-07-30] MEDS: LORATADINE 10 MG TAB PO SCH (07:46)
[2023-07-30] MEDS: PANTOPRAZOLE 40 MG TABLET PO SCH (07:46)
[2023-07-30] MEDS: SENNOSIDES-DOCUSATE SODIUM 1 EACH TAB PO SCH (07:46)
[2023-07-30] MEDS: DULoxetine HCL 60 MG CAPSULE.DR PO SCH (07:46)
[2023-07-30] MEDS: GABAPENTIN 300 MG CAP PO SCH (07:46)
[2023-07-30] MEDS: APIXABAN 2.5 MG TABLET PO SCH (07:46)
[2023-07-30 07:47] VITALS: BP 122/75; PULSE 86; RESP 18; TEMP 98.1
--- NOTE | 2023-07-30 12:40 | P.PN ---
Subjective Progress Note Date: 07/30/23 Principal diagnosis: Postoperative pain, status post right total knee arthroplasty Patient was evaluated today at bedside, she is resting in her hospital bed. Patient is comfortable today. She was able to ambulate with physical therapy today, activity levels much improved. She is hoping to be discharged to home versus subacute rehab. She has no headaches, lightheadedness, chest pain, shortness of breath, fever or chills Objective - Vital Signs Vital signs: Vital Signs Temp 98.1 F 07/30/23 07:00 Pulse 86 07/30/23 07:00 Resp 18 07/30/23 08:00 BP 122/75 07/30/23 07:00 Pulse Ox 94 L 07/30/23 07:00 FiO2 Intake & Output 07/29/23 07/30/23 07/30/23 18:59 06:59 18:59 Intake Total 120 358 Balance 120 358 Intake: Oral 120 358 Other: Voiding Method Toilet Toilet Toilet # Voids 1 - Exam Right lower extremity: Incision is clean, dry, and intact. The exofin fusion tape is in good condition. There is minimal soft tissue swelling and ecchymosis surrounding the medial and lateral aspects of the incision. Calf is soft, no tenderness with palpation. Plantar flexion, dorsiflexion, EHL, FHL are intact. Sensory exam to light touch throughout the extremity is intact, dorsal pedis pulses 2+. - Labs CBC & Chem 7: 07/29/23 04:12 07/29/23 04:12 Assessment and Plan Assessment: Difficulty with ADLs Postoperative pain Status post right total knee arthroplasty Fibromyalgia Other medical comorbidities Plan: Pain control, patient will resume medications prescribed for discharge last week. She has almost medication at home. DVT prophylaxis, she will resume Eliquis 2.5mg bid for the next 8 days Icing and elevating techniques discussed Weight-bear as tolerated with walker PT/OT evaluation Wound care, monitor surgical dressing Medical recommendations Discharge planning: Plan for discharge to home today. I was able to discuss with both nursing and case management regarding this. Patient feels that she is ready to be discharged to home. Time with Patient: Less than 30
--- NOTE | 2023-07-30 12:44 | P.DS ---
Providers Date of admission: 07/28/23 12:57 Expected date of discharge: 07/30/23 Attending physician: Jeremias Corona Consults: 07/30/23 09:53 Consult Physician Routine Consulting Provider: Valerio Banegas Reason/Comments: medical management Do you want consulting provider notified?: Already Contacted Primary care physician: Valerio Banegas Hospital Course: Date of admission: 07/28/2023 Date of discharge: 07/30/2000 Admission diagnosis: Postoperative pain, status post right total knee arthroplasty Discharge diagnosis: Same Attending physician: Dr. Corona Surgical procedures: None Brief history: Patient is a 62-year-old female who had recently undergone a right total knee arthroplasty, she was discharged home on postoperative day 3. Postoperative day 4 she had significant trouble with ADLs and pain control at home, she reported back to [facility] for further evaluation. Patient was admitted to the hospital for pain management. We did discuss the possibil ity of subacute rehab, patient did progress better over the weekend into the week. Patient was discharged to home. Hospital course: Patient's orthopeidc and medical care was provided daily. Patient had daily laboratory tests performed for evaluation of overall blood counts. Patient had daily physical therapy to include strengthening range of motion as well as education with walker ambulation. Patient was treated with Eliquis for their postoperative DVT prophylaxis during their inpatient stay. Patient was noted to have a relatively uneventful postoperative course. Discharge condition/disposition: Patient will be discharged home in stable condition. Discharge medications: Patient will resume all her home medications and medications that were prescribed for her last week at discharge. Discharge instructions: 1. Wound care and infection precautions, keep incision dry and covered while showering, no lotions, creams, moisturizers. No soaking, tubs, pools, hottubs. Do not scrub over the incision. 2. Weight-bear as tolerated with walker / cane until follow-up. 3. Ice and elevate when necessary. Do not exceed 20 minutes per hour with ice pack. 4. Utilize compression sleeve until seen at first follow up appointment. 5. Visiting nursing care. 6. Home physical therapy [including home CPM. 7. Pain meds and anticoagulants per prescription. 8. Pain medication has potential to cause constipation. Increase oral fluid and fiber intake. Contact primary care provider if you have not had a bowel movement within 48 hours after discharge 9. No anti-inflammatory medication until discussed at first post operative visit, this including Motrin, Aleve, Mobic, Diclofenac 10. Follow up in office at 2 weeks postop with Fawad Teague PA-C/Rashi Mclean 11. Follow up with your primary care doctor 7-10 days after discharge. 12. Contact [facility] with any questions, . Patient Condition at Discharge: Good Plan - Discharge Summary New Discharge Prescriptions: No Action Losartan Potassium 100 mg PO DAILY Glucosam/Pernell-Msm1/C/Daniel/Bosw [Glucosamine-Chondroitin Tablet] 1 tab PO DAILY DULoxetine HCL [Cymbalta] 60 mg PO DAILY Cyclobenzaprine [Flexeril] 10 mg PO HS Acetaminophen Tab [Tylenol] 325 - 650 mg PO Q6H PRN PRN Reason: Pain Multivitamins, Thera [Multivitamin (formulary)] 1 tab PO DAILY Gabapentin [Neurontin] 300 mg PO HS oxyCODONE HCL/ACETAMINOPHEN [Oxycodone-Acetaminophn 7.5-325] 1 tab PO Q6H PRN PRN Reason: Pain hydrOXYzine pamoate [Vistaril] 50 mg PO TID PRN PRN Reason: itching/pain Albuterol Inhaler [Ventolin Hfa Inhaler] 2 puff INHALATION RT-QID PRN PRN Reason: Shortness Of Breath Diclofenac Sodium [Voltaren] 50 mg PO BID Omeprazole 20 mg PO DAILY Apixaban [Eliquis] 2.5 mg PO BID #60 tab Fexofenadine HCl [Maddy Allergy] 180 mg PO DAILY Sennosides/Docusate Sodium [Senna Plus 8.6-50 mg Softgel] 1 tab PO DAILY Discharge Medication List Acetaminophen Tab [Tylenol] 325 - 650 mg PO Q6H PRN 07/12/16 [History] Cyclobenzaprine [Flexeril] 10 mg PO HS 07/12/16 [History] DULoxetine HCL [Cymbalta] 60 mg PO DAILY 07/12/16 [History] Glucosam/Pernell-Msm1/C/Daniel/Bosw [Glucosamine-Chondroitin Tablet] 1 tab PO DAILY 07/12/16 [History] Losartan Potassium 100 mg PO DAILY 07/12/16 [History] Multivitamins, Thera [Multivitamin (formulary)] 1 tab PO DAILY 11/19/20 [History] Diclofenac Sodium [Voltaren] 50 mg PO BID 07/20/23 [History] Gabapentin [Neurontin] 300 mg PO HS 07/20/23 [History] Omeprazole 20 mg PO DAILY 07/24/23 [History] Apixaban [Eliquis] 2.5 mg PO BID #60 tab 07/27/23 [Rx] Albuterol Inhaler [Ventolin Hfa Inhaler] 2 puff INHALATION RT-QID PRN 07/28/23 [History] Fexofenadine HCl [Maddy Allergy] 180 mg PO DAILY 07/28/23 [History] Sennosides/Docusate Sodium [Senna Plus 8.6-50 mg Softgel] 1 tab PO DAILY 07/28/23 [History] hydrOXYzine pamoate [Vistaril] 50 mg PO TID PRN 07/28/23 [History] oxyCODONE HCL/ACETAMINOPHEN [Oxycodone-Acetaminophn 7.5-325] 1 tab PO Q6H PRN 07/28/23 [History] Follow up Appointment(s)/Referral(s): Valerio Banegas DO [Primary Care Provider] - 1-2 days [facility] Visiting Nurse, [NON-STAFF] - Rashi Roper PAC [PHYSICIAN SCRAP HOOKER] - 10 Days Activity/Diet/Wound Care/Special Instructions: Orthopedic Discharge Instructions: 1. Wound care and infection precautions, keep incision dry and covered while showering, no lotions, creams, moisturizers. No soaking, pools, hot tubs. Do not scrub over incision. 2. Weight-bear as tolerated with walker / cane until follow-up. 3. Ice and elevate when necessary. Do not exceed 20 minutes per hour with ice pack. 4. Utilize compression sleeve until seen at first follow up appointment. 5. Pain meds and anticoagulants per prescription. 6. Pain medication has potential to cause constipation. Increase oral fluid and fiber intake. Contact primary care provider if you have not had a bowel movement within 48 hours after discharge. 7. No anti-inflammatory medication until discussed at first post operative visit, this including Motrin, Aleve, Mobic, Diclofenac. 8. Follow up in office at 2 weeks postop with Fawad Teague PA-C/Rashi Roper PA-C 9. Follow up with your primary care doctor 7-10 days after discharge. 10. Contact [facility] with any questions, . Discharge Disposition: HOME WITH HOME HEALTH SERVICES
--- NOTE | 2023-07-30 15:11 | P.PN ---
Subjective Progress Note Date: 07/30/23 07/30/2023 This is 62-year-old female admitted with uncontrolled postoperative pain, status post right total knee arthroplasty. Venous Doppler reported No evidence of right lower extremity DVT Pain is significantly better controlled today, ambulating with PT-tolerated exertion well. Denies lightheadedness, dizziness or focal deficits. Options of both rehab versus discharge home with home care PT offered to patient. Patient wishes to be discharged home. Denies chest pain, palpitations or shortness of breath. Maintaining O2 sats in the 90s on room air. Afebrile, Objective - Vital Signs Vital signs: Vital Signs Temp 98.1 F 07/30/23 07:00 Pulse 86 07/30/23 07:00 Resp 18 07/30/23 08:00 BP 122/75 07/30/23 07:00 Pulse Ox 94 L 07/30/23 07:00 FiO2 Intake & Output 07/29/23 07/30/23 07/30/23 18:59 06:59 18:59 Intake Total 120 358 Balance 120 358 Intake: Oral 120 358 Other: Voiding Method Toilet Toilet Toilet # Voids 1 - Exam PHYSICAL EXAM: VITAL SIGNS: [As above] GENERAL: Alert and oriented 3, sitting up in chair, no acute distress. HEENT: Normocephalic,Conjunctivae normal. eyes normal. MMM. NECK: Supple, No JVD. CARDIOVASCULAR: S1, S2 regular. No murmur RESPIRATION: Unlabored, equal air entry, Breath sounds diminished in the bases. ABDOMEN: Soft, nondistended, nontender . No guarding. no masses palpable. +BS LEGS: Right knee dressing clean dry and intact, denies calf tenderness, positive DP pulse. NERVOUS SYSTEM: Cranial N 2-12 grossly normal. No focal deficits. Strength and sensation grossly intact. Skin: Warm and dry, no rash. - Labs CBC & Chem 7: 07/29/23 04:12 07/29/23 04:12 Assessment and Plan Assessment: Postoperative pain secondary to Right knee OA, status post right total knee ar throplasty Atelectasis, postoperative, expected outcome Acute hypoxic respiratory failure secondary to the above Gastroesophageal reflux disease Fibromyalgia Hypertension Depression Ongoing nicotine dependence COPD Plan: Continue on current medication regime ,monitoring and symptomatic treatme nt. Pain management and DVT prophylaxis as per primary. Maintain aggressive pulmonary toileting with incentive spirometer reinforced. Smoking cessation reinforced. Patient wishes to be discharged home. Follow-up with PCP in one week. The impression and plan of care has been dictated as directed. : I performed a history and examination of this patient, discussed the same with the dictator. I agree with the dictator's note ,documented as a scribe. Any additional findings or plans will be noted.
--- NOTE | 2023-07-31 16:10 | CDI ---
Documentation Clarification Form Date: 07/31/2023 03:58:12 PM From: Betty Weller Admit Date: 07/28/2023 12:57:00 PM Patient Name: Cynthia Jules Visit Number: [id number] Discharge Date: 07/30/2023 04:00:00 PM ATTENTION: The Clinical Documentation Specialists (CDI) and [facility] Coding Staff appreciate your assistance in clarifying documentation. Please respond to the clarification below the line at the bottom and electronically sign. The CDI & [facility] Coding staff will review the response and follow-up if needed. Please note: /Queries are made part of the Legal Health Record. If you have any questions, please contact the author of this message via ITS. Dr. Jeremias Corona Acute hypoxic respiratory failure secondary to atelectasis, postoperative, expected outcome is documented in Progress note 07/30/23 which may lack sufficient clinical evidence/support in the medical record. Additional clarification is requested. History/Risk Factors: patient is a 62 year old female who recently underwent a total right knee arthroplasty on 07/24, and was discharged from our facility on 07/27. She presented back with postoperative right knee pain, and admitted for pain management. Clinical Indicators: pulmonology: no shortness of breath, no cough, no hemoptysis. 07/27/23 Vitals: T 98, P 105 RR 20, BP 139/73, O2 97 on room air 07/28/23 Vitals: T 97.7, P 81, RR 16, BP 124/73, O2 93 on room air Resp effort was normal, non-labored No chest x-ray on current admission Treatment: albuterol nebulizer ordered PRN Please clarify if Acute Hypoxic Respiratory Failure is a valid diagnosis? [ ] Yes, Acute Hypoxic Respiratory Failure is present as evidence by (additional clinical support): [ ] No, Acute Hypoxic Respiratory Failure is ruled out [ ] Other (please specify diagnosis) [ x] Unable to determine Please refer to hospitalist for further clarification MTDD
--- NOTE | 2023-08-01 12:52 | CDI ---
Documentation Clarification Form Date: 08/01/2023 12:44:27 PM From: Betty Weller Admit Date: 07/28/2023 12:57:00 PM Patient Name: Cynthia Jules Visit Number: [id number] Discharge Date: 07/30/2023 04:00:00 PM ATTENTION: The Clinical Documentation Specialists (CDI) and [facility] Coding Staff appreciate your assistance in clarifying documentation. Please respond to the clarification below the line at the bottom and electronically sign. The CDI & [facility] Coding staff will review the response and follow-up if needed. Please note: Queries are made part of the Legal Health Record. If you have any questions, please contact the author of this message via ITS. Dr. Valerio Banegas Acute hypoxic respiratory failure secondary to atelectasis, postoperative, expected outcome is documented in progress note 07/30/2023 which may lack sufficient clinical evidence/support in the medical record. Additional clarification is requested. History/Risk Factors: patient is a 62 year old female who recently underwent a total right knee arthroplasty on 07/24, and was discharged from our facility on 07/27. She presented back with postoperative right knee pain, and admitted for pain management. Clinical Indicators: pulmonology: no shortness of breath, no cough, no hemoptysis. 07/27/23: vitals: T 98, P 105, RR 20, BP 139/73, O2 97 on room air 07/28/23: vitals: T 97.7, P 81, RR 216, BP 124/73, O2 93 on room air Resp effort was normal, non-labored No chest x-ray on current admission Treatment: albuterol nebulizer ordered PRN Please clarify if Acute hypoxic respiratory failure is a valid diagnosis? [ ] Yes, Acute hypoxic respiratory failure is present as evidence by (additional clinical support): [ ] No, Acute hypoxic respiratory failure is ruled out [ ] Other (please specify diagnosis) [ ] Unable to determine MTDD
== END 2023-07-30 16:00 | disposition home or self-care (01) ==
LOC: EC 23:49 → 6NMEDSUR 07-28 03:00 → UNDOADMOB 07-28 03:00 → 6NMEDSUR 07-28 11:13 → INTOOBSV 07-28 12:57 → OBSVTOIN 07-28 12:57 → UNDODISIN 07-30 16:00
PROVIDERS: ADMIT Orthopaedic Surgery; ATTEND Orthopaedic Surgery
DX: G89.18 Other acute postprocedural pain (principal); M17.11 Unilateral primary osteoarthritis, right knee; Z96.651 Presence of right artificial knee joint; J95.89 Other postprocedural complications and disorders of respiratory system, not elsewhere classified; J98.11 Atelectasis; I10 Essential (primary) hypertension; M79.7 Fibromyalgia; K21.9 Gastro-esophageal reflux disease without esophagitis; D72.829 Elevated white blood cell count, unspecified; J44.9 Chronic obstructive pulmonary disease, unspecified; F32.A Depression, unspecified; F17.210 Nicotine dependence, cigarettes, uncomplicated; Z79.01 Long term (current) use of anticoagulants; Z79.1 Long term (current) use of non-steroidal anti-inflammatories (NSAID); Z79.899 Other long term (current) drug therapy; Z88.0 Allergy status to penicillin; Z88.1 Allergy status to other antibiotic agents; Z92.3 Personal history of irradiation; Z86.018 Personal history of other benign neoplasm; Z98.890 Other specified postprocedural states; Z71.6 Tobacco abuse counseling; Z80.0 Family history of malignant neoplasm of digestive organs
CPT/HCPCS: 96372; 96374; 99285; 97161; 97165; 80053; 85025; 85027; 93971; G0378 ×3; S4990 ×2; J1170

== ENCOUNTER 2023-12-06 13:35 | Emergency (ER) | payer BC ==
--- NOTE | 2023-12-06 13:48 | ED ---
Chest Pain HPI <Aleida Asher - Last Filed: 12/06/23 13:47> <Garcia Murry - Last Filed: 12/06/23 21:16> - General Stated Complaint: Chest pains Time Seen by Provider: 12/06/23 13:47 - History of Present Illness Initial Comments: The patient's a 63-year-old female with a history of hypertension but otherwise healthy presents emergency room with complaints of intermittent chest pain for last 2-3 days. Patient states the pain is worse at night when she lays down. She has intermittent dizziness and shortness of breath as well. Patient feels as though it could be indigestion. She denies any nausea vomiting, cough or fevers. Denies any cardiac history. (Aleida Asher) This 63-year-old female presents with complaint of some chest pain. She states that it is mostly in the midsternal region. It is described as a pressure type sensation. She denies any radiation of the pain. He states that it seems worse at night when she lays down. It is been intermittent over the last 2-3 days but seems worse since around noon today. She complains of some mild indigestion the midepigastric region as well as occasional nausea. She denies any history of cardiac disease. She denies any leg pain or swelling. There is no history of DVT or PE. No previous similar incidents. No other complaints or modifying factors. (Garcia Murry) - Related Data Home Medications Medication Instructions Recorded Confirmed Acetaminophen Tab [Tylenol] 325 - 650 mg PO Q6H PRN 07/12/16 07/28/23 Cyclobenzaprine [Flexeril] 10 mg PO HS 07/12/16 07/28/23 DULoxetine HCL [Cymbalta] 60 mg PO DAILY 07/12/16 07/28/23 Glucosam/Pernell-Msm1/C/Adniel/Bosw 1 tab PO DAILY 07/12/16 07/28/23 [Glucosamine-Chondroitin Tablet] Losartan Potassium 100 mg PO DAILY 07/12/16 07/28/23 Multivitamins, Thera [Multivitamin 1 tab PO DAILY 11/19/20 07/28/23 (formulary)] Diclofenac Sodium [Voltaren] 50 mg PO BID 07/20/23 07/28/23 Gabapentin [Neurontin] 300 mg PO HS 07/20/23 07/28/23 Omeprazole 20 mg PO DAILY 07/24/23 07/28/23 Albuterol Inhaler [Ventolin Hfa 2 puff INHALATION RT-QID PRN 07/28/23 07/28/23 Inhaler] Fexofenadine HCl [Maddy Allergy] 180 mg PO DAILY 07/28/23 07/28/23 Sennosides/Docusate Sodium [Senna 1 tab PO DAILY 07/28/23 07/28/23 Plus 8.6-50 mg Softgel] hydrOXYzine pamoate [Vistaril] 50 mg PO TID PRN 07/28/23 07/28/23 oxyCODONE HCL/ACETAMINOPHEN 1 tab PO Q6H PRN 07/28/23 07/28/23 [Oxycodone-Acetaminophn 7.5-325] Previous Rx's Medication Instructions Recorded Apixaban [Eliquis] 2.5 mg PO BID #60 tab 07/27/23 Allergies Allergy/AdvReac Type Severity Reaction Status Date / Time Penicillins Allergy Itching of Verified 12/06/23 20:48 hands erythromycin base AdvReac stomach Verified 12/06/23 20:48 irritation Review of Systems ROS Other: All systems not noted in ROS Statement are negative. <Aleida Asher - Last Filed: 12/06/23 13:47> ROS Other: All systems not noted in ROS Statement are negative. <Garcia Murry - Last Filed: 12/06/23 21:16> ROS Statement: Those systems with pertinent positive or pertinent negative responses have been documented in the HPI. Past Medical History Past Medical History: Fibromyalgia, GERD/Reflux, Hypertension, Osteoarthritis (OA) Additional Past Medical History / Comment(s): 2016 Precancerous cells in R breast with lumpectomy and radiation, History of Any Multi-Drug Resistant Organisms: None Reported Past Surgical History: Breast Surgery, Orthopedic Surgery Additional Past Surgical History / Comment(s): Rt breast lumpectomy- preecancerous tissue06/13/16, RT BREAST CORE BX, RT KNEE MENISCUS REPAIR, LT FOOT SX/TENDON Past Anesthesia/Blood Transfusion Reactions: No Reported Reaction Past Psychological History: Depression Additional Psychological History / Comment(s): USES CYMBALTA FOR BOTH PAIN AND DEPRESSION Smoking Status: Current every day smoker Past Alcohol Use History: Occasional Additional Past Alcohol Use History / Comment(s): STARTED SMOKING AT AGE 14 (1973)<1PPD Past Drug Use History: None Reported - Past Family History Father Family Medical History: Cancer Additional Family Medical History / Comment(s): LIVER <Aleida Asher - Last Filed: 12/06/23 13:47> General Exam <Patricia Ashern - Last Filed: 12/06/23 13:47> <Garcia Murry - Last Filed: 12/06/23 21:16> - General Exam Comments Initial Comments: Visual Physical Exam Vital signs reviewed General: Well-appearing, nontoxic, no acute distress. Head: Normocephalic, atraumatic Eyes: PERRLA, EOMI ENT: Airway patent Chest: Nonlabored breathing Skin: No visual rash, normal skin tone Neuro: Alert and oriented 3 Musculoskeletal: No gross abnormalities (Aleida Asher) GENERAL: The patient is well nourished and well hydrated. VITAL SIGNS: Heart rate, blood pressure, respiratory rate reviewed as recorded in nurse's notes. EYES: Pupils are round and reactive. Extraocular movements are intact. No conjunctival / lid redness or swelling. ENT: No external evidence of injury, swelling, or ecchymosis. Airway is patent. Throat is clear. NECK: Nontender. No swelling or evidence of injury. No subcutaneous emphysema. Trachea is midline. No thyroid mass. HEART: Regular rate and rhythm. Good peripheral pulses. LUNGS/CHEST: Breath sounds clear and equal bilaterally. No rales, rhonchi, or wheezes. No ecchymosis, subcutaneous emphysema, or tenderness. ABDOMEN: Abdomen soft without tenderness. No palpable masses or organomegaly. No peritoneal signs. No abdominal wall swelling or ecchymosis. EXTREMITIES: No extremity tenderness. Normal muscle tone and function. No thoracolumbar tenderness. NEUROLOGIC: Sensation is grossly intact. Cranial nerve exam reveals face is symmetrical, tongue is midline, speech is clear. SKIN: No abrasions or ecchymosis is noted. No induration or masses noted. PSYCHIATRIC: Alert and oriented. Appropriate behavior and judgment. (Garcia Murry) Course Vital Signs 12/06/23 12/06/23 13:51 19:01 Temperature 98 F 98.4 F Pulse Rate 98 95 Respiratory 18 18 Rate Blood Pressure 150/99 140/92 O2 Sat by Pulse 95 96 Oximetry Chest Pain MDM <Aleida Asher - Last Filed: 12/06/23 13:47> <Garcia Murry - Last Filed: 12/06/23 21:16> - MDM Quick note portion completed by myself, Aleida Asher PAC. (Aleida Asher) The patient was seen and examined. All diagnostics were reviewed. The EKG shows a normal sinus at a rate of 94. There is no acute ST or T wave changes noted per my interpretation. Intervals are normal. Chest x-ray was done and no acute processes identified per my interpretation and radiology interpretation. The cardiac profile labs are all essentially within normal limits. Patient is chest pain-free on recheck. Long discussion was held in regard versus admission versus repeat troponin and discharged. She states that she does not want to be admitted. Risks benefits are discussed. Repeat troponin was completed and this came back negative. She is still chest pain-free would like to be discharged home. It is felt as though she would still benefit from close follow-up with cardiology. Check Writing Machine Operator follow-up instructions are given. It also is recommended that she take the aspirin daily she voices understanding. She is instructed to return at any time if she changes her mind regarding admission or if her symptoms do worsen. Was pt. sent in by a medical professional or institution (RONEL Fuentes, PAYABLE PROCESSOR, urgent care, hospital, or halfway...) When possible be specific @ -[No] Did you speak to anyone other than the patient for history (EMS, parent, family, police, friend...)? What history was obtained from this source @ -[No] Did you review nursing and triage notes (agree or disagree)? Why? @ -[I reviewed and agree with nursing and triage notes] Were old charts reviewed (outside hosp., previous admission, EMS record, old EKG, old radiological studies, urgent care reports/EKG's, halfway records)? Report findings @ -[No old charts were reviewed] Differential Diagnosis (chest pain, altered mental status, abdominal pain women, abdominal pain men, vaginal bleeding, weakness, fever, dyspnea, syncope, headache, dizziness, GI bleed, back pain, seizure, CVA, palpatations, mental health, musculoskeletal)? @ -Chest pain, angina, pleuritis, gas esophageal reflux, this is skeletal chest pain. EKG interpreted by me (3pts min.). @ -[As above] X-rays interpreted by me (1pt min.). @ -As above CT interpreted by me (1pt min.). @ -[None done] U/S interpreted by me (1pt. min.). @ -[None done] What testing was considered but not performed or refused? (CT, X-rays, U/S, labs)? Why? @ -[None] What meds were considered but not given or refused? Why? @ -[None] Did you discuss the management of the patient with other professionals (professionals i.e. , PA, PAYABLE PROCESSOR, lab, RT, psych nurse, social welfare administrator, deputy juvenile officer, teacher, air intelligence officer, correctional case manager)? Give summary @ -[No] Was smoking cessation discussed for >3mins.? @ -[No] Was critical care preformed (if so, how long)? @ -[No] Were there social determinants of health that impacted care today? How? (Homelessness, low income, unemployed, alcoholism, drug addiction, manning sportation, low edu. Level, literacy, decrease access to med. care, fpc, rehab)? @ -[No] Was there de-escalation of care discussed even if they declined (Discuss DNR or withdrawal of care, Hospice)? DNR status @ -[No] What co-morbidities impacted this encounter? (DM, HTN, Smoking, COPD, CAD, Cancer, CVA, ARF, Chemo, Hep., AIDS, mental health diagnosis, sleep apnea, morbid obesity)? @ -Tobacco abuse, hypertension, hypercholesterolemia Was patient admitted / discharged? Hospital course, mention meds given and route, prescriptions, significant lab abnormalities, going to OR and other pertinent info. @ -Patient was discharged home, please see above. Undiagnosed new problem with uncertain prognosis? @ -[No] Drug Therapy requiring intensive monitoring for toxicity (Heparin, Nitro, Insulin, Cardizem)? @ -[No] Were any procedures done? @ -[No] Diagnosis/symptom? @ -Chest pain Acute, or Chronic, or Acute on Chronic? @ -Acute Uncomplicated (without systemic symptoms) or Complicated (systemic symptoms)? @ -Uncomplicated Side effects of treatment? @ -[No] Exacerbation, Progression, or Severe Exacerbation? @ -[No] Poses a threat to life or bodily function? How? (Chest pain, [place], [place], pneumonia, PE, COPD, DKA, ARF, appy, cholecystitis, CVA, Diverticulitis, Homicidal, Suicidal, threat to staff... and all critical care pts) @ -[No] (Garcia Murry) Disposition <Aleida Asher - Last Filed: 12/06/23 13:47> Is patient prescribed a controlled substance at d/c from ED?: No Time of Disposition: 18:53 <Garcia Murry - Last Filed: 12/06/23 21:16> Clinical Impression: Chest pain Disposition: HOME SELF-CARE Condition: Good Instructions (If sedation given, give patient instructions): Chest Pain (ED) Additional Instructions: Please take an aspirin daily. Referrals: Valerio Banegas DO [Primary Care Provider] - 1-2 days Agapito Jimenez DO [STAFF PHYSICIAN] - As Soon As Possible
[2023-12-06 14:01] VITALS: RESP 18
[2023-12-06 14:17] LABS: Basophils # (A) 0.1 k/uL (0-0.2); Basophils % (A) 1 %; Eosinophils # (A) 0.4 k/uL (0-0.7); Eosinophils % (A) 3 %; HCT 44.4 % (34.0-46.0); HGB 14.6 gm/dL (11.4-16.0); Lymphocytes # (A) 3.3 k/uL (1.0-4.8); Lymphocytes % (A) 28 %; MCH 30.8 pg (25.0-35.0); MCV 93.4 fL (80.0-100.0); Mean Platelet Volume 7.2; Monocytes # (A) 0.5 k/uL (0-1.0); Monocytes % (A) 4 %; Neutrophils # (A) 7.5 k/uL (1.3-7.7); Neutrophils % (A) 63 %; Platelet Count 384 k/uL (150-450); RBC 4.75 m/uL (3.80-5.40); RDW 13.3 % (11.5-15.5); WBC 11.9 k/uL (3.8-10.6)
[2023-12-06 14:31] LABS: ALT 36 U/L (4-34); AST 40 U/L (14-36); African American GFR (CKD) >90 (>60 ml/min/1.73 sqM); Albumin 4.7 g/dL (3.5-5.0); Alkaline Phosphatase 126 U/L (38-126); Anion Gap 10 mmol/L; Blood Urea Nitrogen 21 mg/dL (7-17); Carbon Dioxide 22 mmol/L (22-30); Chloride 106 mmol/L (98-107); Glucose 115 mg/dL (74-99); Lipase 84 U/L (23-300); Non-African American GFR(CKD) >90 (>60 ml/min/1.73 sqM); Potassium 4.4 mmol/L (3.5-5.1); Sodium 138 mmol/L (137-145); Total Bilirubin 0.4 mg/dL (0.2-1.3); Total Protein 7.5 g/dL (6.3-8.2)
[2023-12-06 14:39] LABS: NT-Pro-B-Type Natriuretic Pept 459 pg/mL
--- NOTE | 2023-12-06 14:47 | XR ---
EXAMINATION TYPE: XR chest 2V DATE OF EXAM: 12/06/2023 2:38 PM CLINICAL INDICATION:Female, 63 years old with history of chest pain; COMPARISON: Chest radiographs from 12/06/2023. TECHNIQUE: XR chest 2V Frontal and lateral views of the chest. FINDINGS: Lungs/Pleura: There is no evidence of pleural effusion, focal consolidation, or pneumothorax. Pulmonary vascularity: Unremarkable. Heart/mediastinum: Cardiomediastinal silhouette is unremarkable. Musculoskeletal: No acute osseous pathology. IMPRESSION: No acute cardiopulmonary disease/process.
[2023-12-06] MEDS ORDERED: ASPIRIN 81 MG PO STA (16:45)
[2023-12-06 19:20] VITALS: BP 140/92; PULSE 95; TEMP 98.4
--- NOTE | 2023-12-06 22:42 | P.CRDCN ---
History of Present Illness History of present illness: HISTORY OF PRESENTING ILLNESS This is a pleasant 63-year-old with past medical history significant for Fibromyalgia, GERD, hypertension, tobacco abuse, lumpectomy. Patient states she initially started having chest pain associated with some nausea and some upset stomach and therefore presented to emergency department at approximately 2 PM. Patient had 2 sets of troponins which were normal and EKG without significant ST changes and was offered admission or close follow-up and patient went home. After approximately 1 hour patient developed severe 10 out of 10 chest pain radiating to her back associated with some nausea. EKG showed ST elevations in anterior leads. Blood pressure extremely elevated 180s over 100s. Patient was given aspirin, heparin and started on nitro drip. She does smoke, no alcohol or no illicit drugs. REVIEW OF SYSTEMS At the time of my exam: CONSTITUTIONAL: Denies fever or chills. CARDIOVASCULAR: +chest pain, +shortness of breath, no orthopnea, PND or palpitations. RESPIRATORY: Denies cough. GASTROINTESTINAL: Denies abdominal pain, diarrhea, constipation, nausea or vomiting. MUSCULOSKELETAL: Denies myalgias. NEUROLOGIC: Denies numbness, tingling or weakness. ENDOCRINE: Denies fatigue, weight change, polydipsia or polyurina. GENITOURINARY: Denies burning, hematuria or urgency with micturation. HEMATOLOGIC: Denies history of anemia or bleeding. PHYSICAL EXAMINATION Vital signs reviewed. CONSTITUTIONAL: In distress. HEENT: Head is normocephalic. Pupils are equal, round. Sclerae anicteric. Mucous membranes of the mouth are moist. No JVD. No carotid bruit. CHEST EXAMINATION: Lungs are clear to auscultation. No chest wall tenderness is noted on palpation or with deep breathing. HEART EXAMINATION: Regular rate and rhythm. S1, S2 heard. No murmurs, gallops or rub. ABDOMEN: Soft, nontender. Positive bowel sounds. EXTREMITIES: 2+ peripheral pulses, no lower extremity edema and no calf tenderness. NEUROLOGIC EXAMINATION: Patient is awake, alert and oriented x3. ASSESSMENT 1. Anterior STEMI 2. Hypertension 3. Hyperlipidemia 4. Tobacco abuse PLAN Patient with starting chest pain and worsened episode with anterior ST elevations. Aspirin and heparin drip and increase nitro drip. Discuss heart catheterization patient agreeable. Check 2-D echo. Tobacco cessation recommended. Further recommendations to follow. Past Medical History Past Medical History: Fibromyalgia, GERD/Reflux, Hypertension, Osteoarthritis (OA) Additional Past Medical History / Comment(s): 2016 Precancerous cells in R breast with lumpectomy and radiation, History of Any Multi-Drug Resistant Organisms: None Reported Past Surgical History: Breast Surgery, Orthopedic Surgery Additional Past Surgical History / Comment(s): Rt breast lumpectomy- preecancerous tissue06/13/16, RT BREAST CORE BX, RT KNEE MENISCUS REPAIR, LT FOOT SX/TENDON Past Anesthesia/Blood Transfusion Reactions: No Reported Reaction Past Psychological History: Depression Smoking Status: Current every day smoker Past Alcohol Use History: Occasional Past Drug Use History: None Reported - Past Family History Father Family Medical History: Cancer Additional Family Medical History / Comment(s): LIVER Medications and Allergies Home Medications Medication Instructions Recorded Confirmed Type Acetaminophen Tab [Tylenol] 325 - 650 mg PO Q6H PRN 07/12/16 07/28/23 History Cyclobenzaprine [Flexeril] 10 mg PO HS 07/12/16 07/28/23 History DULoxetine HCL [Cymbalta] 60 mg PO DAILY 07/12/16 07/28/23 History Glucosam/Pernell-Msm1/C/Daniel/Bosw 1 tab PO DAILY 07/12/16 07/28/23 History [Glucosamine-Chondroitin Tablet] Losartan Potassium 100 mg PO DAILY 07/12/16 07/28/23 History Multivitamins, Thera [Multivitamin 1 tab PO DAILY 11/19/20 07/28/23 History (formulary)] Diclofenac Sodium [Voltaren] 50 mg PO BID 07/20/23 07/28/23 History Gabapentin [Neurontin] 300 mg PO HS 07/20/23 07/28/23 History Omeprazole 20 mg PO DAILY 07/24/23 07/28/23 History Apixaban [Eliquis] 2.5 mg PO BID #60 tab 07/27/23 07/28/23 Rx Albuterol Inhaler [Ventolin Hfa 2 puff INHALATION RT-QID PRN 07/28/23 07/28/23 History Inhaler] Fexofenadine HCl [Maddy Allergy] 180 mg PO DAILY 07/28/23 07/28/23 History Sennosides/Docusate Sodium [Senna 1 tab PO DAILY 07/28/23 07/28/23 History Plus 8.6-50 mg Softgel] hydrOXYzine pamoate [Vistaril] 50 mg PO TID PRN 07/28/23 07/28/23 History oxyCODONE HCL/ACETAMINOPHEN 1 tab PO Q6H PRN 07/28/23 07/28/23 History [Oxycodone-Acetaminophn 7.5-325] Allergies Allergy/AdvReac Type Severity Reaction Status Date / Time Penicillins Allergy Itching of Verified 12/06/23 20:48 hands erythromycin base AdvReac stomach Verified 12/06/23 20:48 irritation Physical Exam Vitals: Vital Signs Temp Pulse Resp BP Pulse Ox 12/06/23 19:01 98.4 F 95 18 140/92 96 12/06/23 13:51 98 F 98 18 150/99 95 Intake and Output 12/06/23 12/06/23 12/06/23 06:59 14:59 22:59 Other: Weight 104.326 kg Results 12/06/23 13:59 12/06/23 13:59 Cardiac Enzymes 12/06/23 12/06/23 12/06/23 Range/Units 13:59 13:59 13:59 WBC 11.9 H (3.8-10.6) k/uL RBC 4.75 (3.80-5.40) m/uL Hgb 14.6 (11.4-16.0) gm/dL Hct 44.4 (34.0-46.0) % MCV 93.4 (80.0-100.0) fL MCH 30.8 (25.0-35.0) pg MCHC 33.0 (31.0-37.0) g/dL RDW 13.3 (11.5-15.5) % Plt Count 384 (150-450) k/uL MPV 7.2 Neutrophils % 63 % Lymphocytes % 28 % Monocytes % 4 % Eosinophils % 3 % Basophils % 1 % Neutrophils # 7.5 (1.3-7.7) k/uL Lymphocytes # 3.3 (1.0-4.8) k/uL Monocytes # 0.5 (0-1.0) k/uL Eosinophils # 0.4 (0-0.7) k/uL Basophils # 0.1 (0-0.2) k/uL Sodium 138 (137-145) mmol/L Potassium 4.4 (3.5-5.1) mmol/L Chloride 106 (98-107) mmol/L Carbon Dioxide 22 (22-30) mmol/L Anion Gap 10 mmol/L BUN 21 H (7-17) mg/dL Creatinine 0.55 (0.52-1.04) mg/dL Est GFR (CKD-EPI)AfAm >90 (>60 ml/min/1.73 sqM) Est GFR (CKD-EPI)NonAf >90 (>60 ml/min/1.73 sqM) Glucose 115 H (74-99) mg/dL Calcium 10.0 (8.4-10.2) mg/dL Total Bilirubin 0.4 (0.2-1.3) mg/dL AST 40 H (14-36) U/L ALT 36 H (4-34) U/L Alkaline Phosphatase 126 (38-126) U/L Troponin I 0.017 (0.000-0.034) ng/mL NT-Pro-B Natriuret Pep 459 pg/mL Total Protein 7.5 (6.3-8.2) g/dL Albumin 4.7 (3.5-5.0) g/dL Lipase 84 (23-300) U/L 12/06/23 Range/Units 18:05 WBC (3.8-10.6) k/uL RBC (3.80-5.40) m/uL Hgb (11.4-16.0) gm/dL Hct (34.0-46.0) % MCV (80.0-100.0) fL MCH (25.0-35.0) pg MCHC (31.0-37.0) g/dL RDW (11.5-15.5) % Plt Count (150-450) k/uL MPV Neutrophils % % Lymphocytes % % Monocytes % % Eosinophils % % Basophils % % Neutrophils # (1.3-7.7) k/uL Lymphocytes # (1.0-4.8) k/uL Monocytes # (0-1.0) k/uL Eosinophils # (0-0.7) k/uL Basophils # (0-0.2) k/uL Sodium (137-145) mmol/L Potassium (3.5-5.1) mmol/L Chloride (98-107) mmol/L Carbon Dioxide (22-30) mmol/L Anion Gap mmol/L BUN (7-17) mg/dL Creatinine (0.52-1.04) mg/dL Est GFR (CKD-EPI)AfAm (>60 ml/min/1.73 sqM) Est GFR (CKD-EPI)NonAf (>60 ml/min/1.73 sqM) Glucose (74-99) mg/dL Calcium (8.4-10.2) mg/dL Total Bilirubin (0.2-1.3) mg/dL AST (14-36) U/L ALT (4-34) U/L Alkaline Phosphatase (38-126) U/L Troponin I 0.021 (0.000-0.034) ng/mL NT-Pro-B Natriuret Pep pg/mL Total Protein (6.3-8.2) g/dL Albumin (3.5-5.0) g/dL Lipase (23-300) U/L CBC 12/06/23 Range/Units 13:59 WBC 11.9 H (3.8-10.6) k/uL RBC 4.75 (3.80-5.40) m/uL Hgb 14.6 (11.4-16.0) gm/dL Hct 44.4 (34.0-46.0) % Plt Count 384 (150-450) k/uL Comprehensive Metabolic Panel 12/06/23 Range/Units 13:59 Sodium 138 (137-145) mmol/L Potassium 4.4 (3.5-5.1) mmol/L Chloride 106 (98-107) mmol/L Carbon Dioxide 22 (22-30) mmol/L BUN 21 H (7-17) mg/dL Creatinine 0.55 (0.52-1.04) mg/dL Glucose 115 H (74-99) mg/dL Calcium 10.0 (8.4-10.2) mg/dL AST 40 H (14-36) U/L ALT 36 H (4-34) U/L Alkaline Phosphatase 126 (38-126) U/L Total Protein 7.5 (6.3-8.2) g/dL Albumin 4.7 (3.5-5.0) g/dL Intake and Output 12/06/23 12/06/23 12/06/23 06:59 14:59 22:59 Other: Weight 104.326 kg Patient Weight 12/07/23 06:59 Weight 104.326 kg 12/06/23 13:59 12/06/23 13:59
[2023-12-06] MEDS ORDERED: RX INFO: IV CONTRAST WAS GIVEN 1 EACH MISC MISCELLANE PRN (22:59)
[2023-12-06] MEDS ORDERED: ZOLPIDEM 5 MG TAB PO PRN (22:59)
[2023-12-06] MEDS ORDERED: NITROGLYCERIN SL TABS 0.4 MG TAB SUBLINGUAL PRN (22:59)
[2023-12-06] MEDS ORDERED: MAG HYDROX/AL HYDROX/SIMETH 30 ML CUP PO PRN (22:59)
[2023-12-06] MEDS ORDERED: ATROPINE SULFATE 0.1 MG/ML 10ML SYRINGE IV PRN (22:59)
--- NOTE | 2023-12-06 22:59 | P.PRCINT ---
Percutaneous Coronary Int. - Percutaneous Coronary Intervention Percutaneous Coronary Intervention: PROCEDURES PERFORMED: Left heart catheterization, bilateral coronary angiography, ultrasound guided arterial access, intravascular ultrasound LAD, PCI proximal and mid LAD with overlapping 3.5 x 8, 3.0 x 18 mm, 3.0 x 20 mm Xience JUAN CARLOS postdilated with a 3.5 noncompliant balloon INDICATION: Anterior STEMI CONSENT:I have discussed the risks, benefits and alternative therapies for the above-mentioned procedure and for both sedation/analgesia as well as necessary blood product administration, if indicated, as they pertain to this patient. The patient has indicated understanding and acceptance of the risks and proc edures discussed. PROCEDURE: After the risks, benefits and alternatives of the above mentioned procedure explained in detail with the patient, informed consent was obtained. Patient was taken to the catheterization lab and prepped and draped in usual fashion. Ultrasound guidance was used to assess for arterial access. 1% lidocaine was used to anesthetize the right radial artery. A 6-Emirati sheath was placed in the right radial artery using modified Seldinger technique and ultrasound guidance. The residual was made to perform PCI of the LAD. Heparin was given. A 6-Emirati CLS 3.5 guide disease to engage the left main. A 0.014 BMW wire was initially attempted to be placed down the LAD however there was significant tortuosity at the takeoff. Therefore this required a supra-cross microcatheter 90 bend with a 0.014 whisper wire which was able to be advanced into the distal LAD. Predilation was performed with a 2.5 x 12 L balloon. There was diffuse disease of a small caliber diagonal branch and therefore this was wired with a 0.014 BMW wire and ballooned at the origin with a 2.0 x 12 mm balloon. Unfortunately there was diffuse disease in with ballooning of LAD this closed off and given small caliber vessel did not feel was amenable to the bifurcation stenting, kissing balloon and therefore treated medically. A 3.0 x 28mm Xience JUAN CARLOS was placed at the mid LAD. Next a 3.5 x 8 mm Xience JUAN CARLOS was placed at the origin of the LAD. Initial consideration of attempted a keep the diagonal open and not stents over the diagonal however given small caliber unable to be easily b allooned, additional stent was placed from the proximal and mid LAD overlapping another 2 stents with a 3.0 x 15 mm Xience JUAN CARLOS. Intravascular ultrasound showed mildly under deployed stent of the mid LAD and reference vessel of the proximal LAD of 3.5 mm. Therefore the proximal midportion of the stent was postdilated with a 3.5 noncompliant balloon. Final angiograms were performed. Pre-interven tion there was 100% stenosis of the mid LAD with SAMUEL 0 flow and postintervention there was 0% stenosis and SAMUEL-3 flow. Right coronary angiography was performed with a 5-Emirati FR5 catheter in various views. A 5-Emirati FR5 catheter was inserted into the left ventricle and pressure measurements were obtained. The right radial sheath was removed and a TR band was placed with hemostasis achieved. The patient tolerated the procedure well. Patient was transported back to the post catheterization holding area in stable condition. Conscious Sedation: Patient was monitored under the direct supervision of myself for conscious sedation using Versed and fentanyl for a total duration of 56 minutes HEMODYNAMICS: Ao: 166/88 LV: 142/16, LVEDP 20 SELECTIVE CORONARY ARTERIOGRAPHY: LEFT MAIN: The left main is a large caliber vessel which trifurcates into the LAD, ramus and circumflex. There is no significant stenosis. LEFT ANTERIOR DESCENDING CORONARY ARTERY: LAD is a large caliber vessel which wraps around to the apex. There is an ostial 95% stenosis followed by a mid LAD 99% stenosis than a 100% stenosis. RAMUS INTERMEDIUS: The ramus is a small to moderate caliber tortuous vessel wi th mild luminal irregularities. LEFT CIRCUMFLEX CORONARY ARTERY: Left circumflex is a moderate to large caliber vessel which is tortuous and has a mid circumflex 40% stenosis and gives off a moderate to large caliber OM1 branch with mild luminal irregularities. RIGHT CORONARY ARTERY: The right coronary artery is a large caliber vessel which gives off a PDA and PLV branch and is the dominant vessel. There is a proximal RCA 30%, mid RCA 40% and distal RCA 30% stenosis and otherwise diffuse mild luminal irregularities. FINAL IMPRESSION: 1. CAD as described above including 100% mid LAD stenosis, 40% circumflex stenosis, 40% RCA stenosis 2. S/p PCI proximal and mid LAD with overlapping 3.5 x 8, 3.0 x 18 mm, 3.0 x 20 mm Xience JUAN CARLOS postdilated with a 3.5 noncompliant balloon 3. Elevated left sided filling pressures PLAN: 1. Aggressive risk factor modification per most recent ACC/AHA guidelines. 2. Continue dual antiplatelets with aspirin and Brillinta for 12 months 3. Discussed tobacco cessation
[2023-12-06] MEDS ORDERED: SODIUM CHLORIDE 0.9% 1,000 ML in EMPTY BAG 1 BAG IV SCH (23:00)
[2023-12-06] MEDS ORDERED: NICOTINE 14MG/24HR PATCH TRANSDERM STA (23:02)
[2023-12-06] MEDS ORDERED: LOSARTAN 25 MG TAB PO STA (23:02)
[2023-12-06] MEDS ORDERED: ATORVASTATIN 80 MG TAB PO SCH (23:15)
[2023-12-07] MEDS ORDERED: METOPROLOL TARTRATE 25 MG TAB PO SCH (09:00)
[2023-12-07] MEDS ORDERED: ASPIRIN 81 MG PO SCH (09:00)
[2023-12-07] MEDS ORDERED: TICAGRELOR 90 MG TAB PO SCH (09:00)
== END 2023-12-06 19:05 | disposition home or self-care (01) ==
LOC: EC 13:35
DX: R07.89 Other chest pain (principal); I10 Essential (primary) hypertension; K21.9 Gastro-esophageal reflux disease without esophagitis; M19.90 Unspecified osteoarthritis, unspecified site; E78.5 Hyperlipidemia, unspecified; F17.200 Nicotine dependence, unspecified, uncomplicated; Z79.899 Other long term (current) drug therapy; Z88.0 Allergy status to penicillin; Z88.1 Allergy status to other antibiotic agents
CPT/HCPCS: 36415; 71046; 80053; 83690; 83880; 84484; 85025; 93005; 99285

== ENCOUNTER 2023-12-06 20:44 | Inpatient (IN) | payer BC ==
[2023-12-06] MEDS: ONDANSETRON 4 MG/2 ML VIAL IVP STA (21:05)
[2023-12-06] MEDS: NITROGLYCERIN-D5W PMX 50 MG in DEXTROSE/WATER 1 250ML.BAG IV STA (21:14)
[2023-12-06] MEDS: HEPARIN SOD,PORK IN 0.45% NACL 25,000 UNIT in 0.45% NACL 1 250ML.BAG IV SCH (21:15)
[2023-12-06] MEDS: ASPIRIN 81 MG PO STA (21:17)
[2023-12-06] MEDS: MORPHINE SULFATE 4 MG/ML SYRINGE IVP STA (21:17)
[2023-12-06] MEDS: HEPARIN SODIUM 1,000 UN/ML (10ML VL) IV ONE (21:20)
[2023-12-06] MEDS ORDERED: LIDOCAINE 1% INJ 10MG/ML (20 ML MDV) ONE (21:23)
[2023-12-06] MEDS ORDERED: VERAPAMIL 2.5 MG/ML 2 ML AMP ONE (21:23)
[2023-12-06] MEDS ORDERED: HEPARIN SODIUM 1,000 UN/ML (10ML VL) ONE ×2 (21:23→22:39)
[2023-12-06] MEDS: MORPHINE SULFATE 4 MG/ML SYRINGE IV STA (21:23)
[2023-12-06] MEDS ORDERED: fentaNYL (PF) 50 MCG/ML 2 ML AMP ONE ×2 (21:23→22:29)
--- NOTE | 2023-12-06 21:30 | ED ---
Chest Pain HPI - General Chief Complaint: Chest Pain Stated Complaint: chest pain Time Seen by Provider: 12/06/23 20:57 Source: patient Mode of arrival: ambulatory Limitations: no limitations - History of Present Illness Initial Comments: This 63-year-old female presents with complaint of chest pain. She states that it is midsternal and severe in nature. She states that it radiates into her back. She has some slight left arm numbness. She was just in our emergency department earlier today and evaluated by myself. She has been having some intermittent chest pain over the last 2 or 3 days. She states that he got somewhat worse at noon today. He had full workup including EKG, laboratory, serial troponins, and chest x-ray which did not show any acute abnormalities. She was offered admission to the hospital versus doing serial troponins and discharge. She states that she wanted to be discharged home. Risks benefits were discussed but she was agreeable to return if her symptoms worsen. She states that shortly after she got home pain became very severe. She became nauseated and started vomiting. She denies any other complaints or modifying factors. - Related Data Home Medications Medication Instructions Recorded Confirmed Acetaminophen Tab [Tylenol] 325 - 650 mg PO Q6H PRN 07/12/16 07/28/23 Cyclobenzaprine [Flexeril] 10 mg PO HS 07/12/16 07/28/23 DULoxetine HCL [Cymbalta] 60 mg PO DAILY 07/12/16 07/28/23 Glucosam/Pernell-Msm1/C/Daniel/Bosw 1 tab PO DAILY 07/12/16 07/28/23 [Glucosamine-Chondroitin Tablet] Losartan Potassium 100 mg PO DAILY 07/12/16 07/28/23 Multivitamins, Thera [Multivitamin 1 tab PO DAILY 11/19/20 07/28/23 (formulary)] Diclofenac Sodium [Voltaren] 50 mg PO BID 07/20/23 07/28/23 Gabapentin [Neurontin] 300 mg PO HS 07/20/23 07/28/23 Omeprazole 20 mg PO DAILY 07/24/23 07/28/23 Albuterol Inhaler [Ventolin Hfa 2 puff INHALATION RT-QID PRN 07/28/23 07/28/23 Inhaler] Fexofenadine HCl [Maddy Allergy] 180 mg PO DAILY 07/28/23 07/28/23 Sennosides/Docusate Sodium [Senna 1 tab PO DAILY 07/28/23 07/28/23 Plus 8.6-50 mg Softgel] hydrOXYzine pamoate [Vistaril] 50 mg PO TID PRN 07/28/23 07/28/23 oxyCODONE HCL/ACETAMINOPHEN 1 tab PO Q6H PRN 07/28/23 07/28/23 [Oxycodone-Acetaminophn 7.5-325] Previous Rx's Medication Instructions Recorded Apixaban [Eliquis] 2.5 mg PO BID #60 tab 07/27/23 Allergies Allergy/AdvReac Type Severity Reaction Status Date / Time Penicillins Allergy Itching of Verified 12/06/23 20:48 hands erythromycin base AdvReac stomach Verified 12/06/23 20:48 irritation Review of Systems ROS Statement: Those systems with pertinent positive or pertinent negative responses have been documented in the HPI. ROS Other: All systems not noted in ROS Statement are negative. Past Medical History Past Medical History: Fibromyalgia, GERD/Reflux, Hypertension, Osteoarthritis (OA) Additional Past Medical History / Comment(s): 2016 Precancerous cells in R breast with lumpectomy and radiation, History of Any Multi-Drug Resistant Organisms: None Reported Past Surgical History: Breast Surgery, Orthopedic Surgery Additional Past Surgical History / Comment(s): Rt breast lumpectomy- preecancerous tissue06/13/16, RT BREAST CORE BX, RT KNEE MENISCUS REPAIR, LT FOOT SX/TENDON Past Anesthesia/Blood Transfusion Reactions: No Reported Reaction Past Psychological History: Depression Smoking Status: Current every day smoker Past Alcohol Use History: Occasional Past Drug Use History: None Reported - Past Family History Father Family Medical History: Cancer Additional Family Medical History / Comment(s): LIVER General Exam - General Exam Comments Initial Comments: GENERAL: The patient is well nourished and well hydrated. She appears to be in significant distress on recheck which is markedly change as compared to previous examination. VITAL SIGNS: Heart rate, blood pressure, respiratory rate reviewed as recorded in nurse's notes. EYES: Pupils are round and reactive. Extraocular movements are intact. No conjunctival / lid redness or swelling. ENT: No external evidence of injury, swelling, or ecchymosis. Airway is patent. Throat is clear. NECK: Nontender. No swelling or evidence of injury. No subcutaneous emphysema. Trachea is midline. No thyroid mass. HEART: Regular rate and rhythm. Good peripheral pulses. LUNGS/CHEST: Breath sounds clear and equal bilaterally. No rales, rhonchi, or wheezes. No ecchymosis, subcutaneous emphysema, or tenderness. ABDOMEN: Abdomen soft without tenderness. No palpable masses or organomegaly. No peritoneal signs. No abdominal wall swelling or ecchymosis. EXTREMITIES: No extremity tenderness. Normal muscle tone and function. No thoracolumbar tenderness. NEUROLOGIC: Sensation is grossly intact. Cranial nerve exam reveals face is symmetrical, tongue is midline, speech is clear. SKIN: No abrasions or ecchymosis is noted. No induration or masses noted. PSYCHIATRIC: Alert and oriented. Appropriate behavior and judgment. Limitations: no limitations Course Vital Signs 12/06/23 12/06/23 20:45 20:48 Temperature 97.9 F Pulse Rate 72 99 Respiratory 18 28 H Rate Blood Pressure 154/97 187/104 O2 Sat by Pulse 96 93 L Oximetry Chest Pain [facility] The patient was seen and examined. All diagnostics were reviewed. Her EKG shows a normal sinus rhythm at a rate of 70. This EKG shows significant ST elevation in all precordial leads worse in V2 through V4. The TN intervals is 154, QRS duration is 105, and the QTC interval is 470. She is placed on a front desk monitor receives oxygen. IV is established. She receives morphine 4 mg IV as well as Zofran 4 mg IV. She continues to have pain and morphine 4 mg IV and Reglan 10 mg IV is given. Heparin bolus and drip also is initiated. Nitroglycerin drip was initiated. She receives an aspirin orally. An ST elevation myocardial infarction alert this issue. Case is discussed with Dr. Jimenez from cardiology and does take patient immediately to the heart catheterization laboratory for further evaluation and treatment. It is felt as though the patient had significant change in his symptomatology after discharge and now suffering an ST elevation myocardial infarction that was not present earlier. Repeat troponin also is ordered and is currently pending. Patient is admitted to the intensive care unit. Page is out for primary care, Dr. Banegas case will be discussed with him when he calls back. Was pt. sent in by a medical professional or institution (, PA, ACTIVITIES SPECIALIST, urgent care, hospital, or shelter...) When possible be specific @ -[No] Did you speak to anyone other than the patient for history (EMS, parent, family, police, friend...)? What history was obtained from this source @ -Case also was discussed with son was present and gives additional history. Did you review nursing and triage notes (agree or disagree)? Why? @ -[I reviewed and agree with nursing and triage notes] Were old charts reviewed (outside hosp., previous admission, EMS record, old EKG, old radiological studies, urgent care reports/EKG's, shelter records)? Report findings @ -Old records from previous hospital visit were reviewed. Specifically EKG from previous visit was reviewed and this does not show any EKG changes. Differential Diagnosis (chest pain, altered mental status, abdominal pain women, abdominal pain men, vaginal bleeding, weakness, fever, dyspnea, syncope, headache, dizziness, GI bleed, back pain, seizure, CVA, palpatations, mental health, musculoskeletal)? @ -ST elevation myocardial infarction, chest pain, nausea and vomiting. EKG interpreted by me (3pts min.). @ -[As above] X-rays interpreted by me (1pt min.). @ -X-ray was done earlier of the chest and did not show any acute abnormalities per my interpretation. CT interpreted by me (1pt min.). @ -[None done] U/S interpreted by me (1pt. min.). @ -[None done] What testing was considered but not performed or refused? (CT, X-rays, U/S, labs)? Why? @ -[None] What meds were considered but not given or refused? Why? @ -[None] Did you discuss the management of the patient with other professionals (professionals i.e. , PA, ACTIVITIES SPECIALIST, lab, RT, psych nurse, social scientist, bilingual trainer, teacher, transit police officer, hospice case manager)? Give summary @ -Case is discussed with multiple pressure riveter operator, Dr. Jimenez who does present to the emergency department takes patient immediately to the heart catheterization lab. Was smoking cessation discussed for >3mins.? @ -[No] Was critical care preformed (if so, how long)? @ -30 minutes critical care is utilized and the treatment of the patient. Were there social determinants of health that impacted care today? How? (Homelessness, low income, unemployed, alcoholism, drug addiction, transportation, low edu. Level, literacy, decrease access to med. care, prison, rehab)? @ -[No] Was there de-escalation of care discussed even if they declined (Discuss DNR or withdrawal of care, Hospice)? DNR status @ -[No] What co-morbidities impacted this encounter? (DM, HTN, Smoking, COPD, CAD, Cancer, CVA, ARF, Chemo, Hep., AIDS, mental health diagnosis, sleep apnea, morbid obesity)? @ -Hypertension, hypercholesterolemia, tobacco abuse. Was patient admitted / discharged? Hospital course, mention meds given and route, prescriptions, significant lab abnormalities, going to OR and other pertinent info. @ -Patient was admitted to the hospital, please see above. Undiagnosed new problem with uncertain prognosis? @ -[No] Drug Therapy requiring intensive monitoring for toxicity (Heparin, Nitro, Insulin, Cardizem)? @ -[No] Were any procedures done? @ -[No] Diagnosis/symptom? @ -ST elevation myocardial infarction, chest pain, nausea and vomiting. Acute, or Chronic, or Acute on Chronic? @ -Acute Uncomplicated (without systemic symptoms) or Complicated (systemic symptoms)? @ -Uncomplicated Side effects of treatment? @ -[No] Exacerbation, Progression, or Severe Exacerbation? @ -Severe exacerbation Poses a threat to life or bodily function? How? (Chest pain, [place], [place], pneumonia, PE, COPD, DKA, ARF, appy, cholecystitis, CVA, Diverticulitis, Homicidal, Suicidal, threat to staff... and all critical care pts) @ -Yes, this is a significant diagnosis that is life-threatening. Disposition Clinical Impression: ST elevation myocardial infarction (STEMI), Nausea and vomiting, Chest pain Disposition: ADMITTED IP TO THIS [facility] Condition: Fair Time of Disposition: 21:31 Decision Date: 12/06/23 Decision Time: 21:31
[2023-12-06] MEDS: fentaNYL (PF) 50 MCG/ML 2 ML AMP IVP ONE ×2 (21:35→22:30)
[2023-12-06] MEDS: LIDOCAINE 1% INJ 10MG/ML (20 ML MDV) SQ ONE (21:35)
[2023-12-06] MEDS: VERAPAMIL SYRINGE (5 MG/10 ML) INTRAARTER ONE (21:36)
[2023-12-06] MEDS: MIDAZOLAM 2 MG/2 ML VIAL IVP ONE ×2 (21:36→22:30)
[2023-12-06] MEDS ORDERED: TICAGRELOR 90 MG TAB ONE (21:37)
[2023-12-06] MEDS: SODIUM CHLORIDE 0.9% 1,000 ML IV ONE (21:38)
[2023-12-06] MEDS: HEPARIN SODIUM 1,000 UN/ML (10ML VL) IVP ONE (21:41)
[2023-12-06] MEDS ORDERED: NALOXONE 0.4 MG/ML 1 ML VIAL IV PRN (21:43)
[2023-12-06] MEDS: TICAGRELOR 90 MG TAB PO ONE (21:45)
[2023-12-06] MEDS: IOPAMIDOL-370 100ML BTL INJ ONE ×2 (22:03→22:30)
[2023-12-06 22:57] LABS: Glucose,Whole Blood 119 mg/dL (70-110)
[2023-12-06] MEDS ORDERED: ATROPINE SULFATE 0.1 MG/ML 10ML SYRINGE IV PRN (23:26)
[2023-12-06] MEDS ORDERED: NITROGLYCERIN SL TABS 0.4 MG TAB SUBLINGUAL PRN (23:26)
[2023-12-06] MEDS ORDERED: RX INFO: IV CONTRAST WAS GIVEN 1 EACH MISC MISCELLANE PRN (23:26)
[2023-12-06] MEDS ORDERED: ZOLPIDEM 5 MG TAB PO PRN (23:26)
[2023-12-06] MEDS: MORPHINE SULFATE 4 MG/ML SYRINGE IVP PRN (23:45)
[2023-12-06] MEDS: hydrALAZINE HCL 20 MG/ML 1 ML VIAL IVP STA (23:58)
[2023-12-06] MEDS: ATORVASTATIN 80 MG TAB PO SCH (23:58)
[2023-12-06] MEDS: METOPROLOL TARTRATE 25 MG TAB PO SCH (23:58)
[2023-12-06] MEDS: SODIUM CHLORIDE 0.9% 1,000 ML in EMPTY BAG 1 BAG IV SCH (23:59)
[2023-12-07] MEDS: NITROGLYCERIN-D5W PMX 50 MG in DEXTROSE/WATER 1 250ML.BAG IV SCH (00:23)
[2023-12-07] MEDS: LOSARTAN 25 MG TAB PO SCH (01:05)
[2023-12-07] MEDS: MAG HYDROX/AL HYDROX/SIMETH 30 ML CUP PO PRN (01:31)
[2023-12-07] MEDS: METOCLOPRAMIDE 5 MG/ML 2 ML VIAL IVP STA (05:03)
[2023-12-07] MEDS: SODIUM CHLORIDE 0.9% 1,000 ML IV STA (05:03)
[2023-12-07] MEDS: ONDANSETRON 4 MG/2 ML VIAL IVP PRN (06:10)
[2023-12-07 06:46] LABS: African American GFR (CKD) >90 (>60 ml/min/1.73 sqM); Non-African American GFR(CKD) >90 (>60 ml/min/1.73 sqM)
[2023-12-07] MEDS: TICAGRELOR 90 MG TAB PO SCH (08:24)
[2023-12-07] MEDS: ASPIRIN 81 MG PO SCH (08:24)
[2023-12-07] MEDS: PANTOPRAZOLE 40 MG/10 ML VIAL IV SCH (08:27)
[2023-12-07] MEDS ORDERED: ASPIRIN 325 MG TAB PO SCH (09:00)
[2023-12-07] MEDS: LOSARTAN 25 MG TAB PO STA (09:31)
[2023-12-07] MEDS: NITROGLYCERIN OINT 1 INCH/GM PACKET TOPICAL SCH (09:31)
[2023-12-07] MEDS ORDERED: NON FORMULARY DRUG (Omeprazole [Omeprazole] 20 MG Tablet.Dr) PO SCH (10:00)
[2023-12-07] MEDS: NICOTINE 21MG/24HR PATCH TRANSDERM SCH (11:04)
[2023-12-07] MEDS: IPRATROPIUM-ALBUTEROL 3 ML NEB INHALATION SCH ×2 (11:50→12:00)
[2023-12-07] MEDS: SYMBICORT 80-4.5 MCG INHALER INHALATION SCH (11:50)
[2023-12-07 12:31] VITALS: BMI 42.3
--- NOTE | 2023-12-07 13:22 | PN ---
PROGRESS NOTE SUBJECTIVE: This is a 63-year-old lady who is admitted to hospital with acute inferior wall myocardial infarction, and underwent emergent cardiac catheterization and angioplasty of the LAD. I am seeing her for the first time today. Her admission troponin was normal. EKG showed ST-segment elevation in leads V1 to V5. She continued to have persistent chest discomfort through last night and had been treated with IV nitroglycerin. MEDICATIONS: She is currently on, 1. Aspirin. 2. Lipitor. 3. Cozaar. 4. Lopressor 25 b.i.d. 5. Brilinta. 6. She is on IV nitroglycerin, I am going to taper stopped and put her on nitroglycerin paste. PHYSICAL EXAMINATION: VITAL SIGNS: Heart rate is 79 beats per minute, blood pressure is 145/89, respiratory rate is 18. CHEST: Reveals diminished air entry at the bases. HEART: Reveals first and second heart sounds. No gallop, no murmur, no rub. ABDOMEN: Soft, nontender. EXTREMITIES: Did not reveal any edema. Palpable pulses are felt. Right radial artery access site appears normal. Creatinine is normal at 0.4. We do not have any other labs at this time. ASSESSMENT: Acute anterior wall myocardial infarction, status post catheterization and angioplasty of the PLAN: Continue current medications. Blood pressure is poorly controlled, I will adjust the antihypertensives as needed. I will obtain a 2D echo to evaluate the LV function. JOIE / AZALEA: [id number] /
--- NOTE | 2023-12-07 14:52 | CA ---
Transthoracic Echo Report Name: Cynthia Jules Age: 63 Gender: F : 1960 Exam Date: 12/07/2023 10:40 Exam Location: [place] [facility] Ht (in): 64 Wt (lb): 246 Ordering Physician: Julio Cesar Quinonez MD ([id number]) Attending/Referring Phys: Cristiano MCKEON Cremator Alex Cohen RD Procedure CPT: Indications: Assess LV Function Cardiac Hx: Technical Quality: Technically difficult study Contrast 1: Definity Total Dose (mL): 2 Contrast 2: Total Dose (mL): MEASUREMENTS (Male / Female) Normal Values 2D ECHO LV Diastolic Diameter PLAX 4.5 cm 4.2 - 5.9 / 3.9 - 5.3 cm LV Systolic Diameter PLAX 3.1 cm IVS Diastolic Thickness 1.2 cm 0.6 - 1.0 / 0.6 - 0.9 cm LVPW Diastolic Thickness 1.1 cm 0.6 - 1.0 / 0.6 - 0.9 cm LV Relative Wall Thickness 0.5 LVOT Diameter 1.9 cm Aortic Root Diameter 2.5 cm LA Systolic Diameter LX 2.4 cm 3.0 - 4.0 / 2.7 - 3.8 cm LV Diastolic Volume MOD BP 53.3 cm??? 67 - 155 / 56 - 104 cm??? LV Systolic Volume MOD BP 23.5 cm??? 22 - 58 / 19 - 49 cm??? LV Ejection Fraction MOD BP 55.8 % >= 55 % LV Cardiac Index MOD BP 1005.8 cm???/min???m??? LV Diastolic Volume MOD 4C 61.4 cm??? LV Systolic Volume MOD 4C 28.8 cm??? LV Ejection Fraction MOD 4C 53.1 % LV Cardiac Index MOD 4C 1104.0 cm???/min???m??? LV Diastolic Length 4C 6.5 cm LV Systolic Length 4C 5.8 cm LV Diastolic Volume MOD 2C 42.7 cm??? LV Systolic Volume MOD 2C 17.8 cm??? LV Ejection Fraction MOD 2C 58.4 % LV Cardiac Index MOD 2C 844.4 cm???/min???m??? LV Diastolic Length 2C 6.0 cm LV Systolic Length 2C 5.3 cm LA Volume 32.3 cm??? 18 - 58 / 22 - 52 cm??? LA Volume Index 14.0 cm???/m??? 16 - 28 cm???/m??? DOPPLER AV Peak Velocity 127.2 cm/s AV Peak Gradient 6.5 mmHg AV Mean Velocity 89.5 cm/s AV Mean Gradient 3.6 mmHg AV Velocity Time Integral 26.6 cm MV Peak Velocity 166.2 cm/s MV Peak Gradient 11.1 mmHg MV Mean Velocity 80.9 cm/s MV Mean Gradient 3.2 mmHg MV Velocity Time Integral 35.8 cm Mitral E Point Velocity 96.4 cm/s Mitral A Point Velocity 150.0 cm/s Mitral E to A Ratio 0.6 MV Deceleration Time 228.6 ms MV E' Velocity 4.3 cm/s Mitral E to MV E' Ratio 22.5 PV Peak Velocity 71.6 cm/s PV Peak Gradient 2.1 mmHg FINDINGS Left Ventricle Mildly increased septal wall thickness. Mildly increased posterior wall thickness. Normal LV size. Left ventricular ejection fraction is estimated at 35-40 %. Right Ventricle Normal right ventricular size. Right Atrium Normal right atrial size. Left Atrium Normal left atrial size. Mitral Valve Moderate posterior MAC. No mitral stenosis. No mitral regurgitation. Aortic Valve Aortic valve not well visualized. Grossly normal. No aortic valve stenosis or regurgitation. Tricuspid Valve Tricuspid valve not well visualized. Trace TR. Pulmonic Valve Pulmonic valve not well visualized. No pulmonic regurgitation. Pericardium Not well visualized. Grossly normal. Aorta Normal size aortic root. CONCLUSIONS Mildly increased left ventricular wall thickness Left ventricular ejection fraction 35-40% with anterior apical hypokinesis No mitral regurgitation Trace tricuspid regurgitation Previewed by: Dr. Agapito Jimenez DO (Electronically Signed) Final Date: 07 December 2023 14:51
[2023-12-07] MEDS: LORATADINE 10 MG TAB PO SCH (15:15)
[2023-12-07] MEDS: DULoxetine HCL 60 MG CAPSULE.DR PO SCH (15:15)
[2023-12-07] MEDS: HYDROmorphone 0.5 MG/0.5 ML SYRINGE IVP STA (15:15)
--- NOTE | 2023-12-07 16:55 | P.HPIM ---
History of Present Illness H&P Date: 12/07/23 Chief Complaint: STEMI This is a 63-year-old female with past medical history significant for osteoarthritis , fibromyalgia, gastroesophageal reflux disease, hypertension, depression, ongoing nicotine dependence-since 1972, obesity , recent right total knee arthroplasty 08/13 and multiple other medical issues return to the ER with acute midsternal chest pain radiating through to the back accompanied by nausea. Earlier in the afternoon on patient's initial ER visit,troponins negative x 3 and ER reported EKG without significant ST changes, chest x-ray reported nonacute ,offered observation admission, but patient chose to go home. Chest pain returned ,as previously but with increased intensity, midsternal radiating through to her back, returned to the ER, EKG reported ST elevations in anterior leads as per cardiology's review, hypertensive, troponin 20.9 . Received aspirin with initiation of nitro and heparin drips and taken for cardiac catheterization. Cardiac catheterization reported CAD including 100% mid LAD stenosis, 40% circumflex stenosis, 40% RCA stenosis, status post PCI proximal and mid LAD with overlapping 3.5 x 8, 3.0 x 18 mm, 3.0 x 20 mm Xience JUAN CARLOS postdilated with a 3.5 noncompliant balloon, elevated left-sided filling pressures. Tolerated procedure well. Currently maintained on nitroglycerin drip. Reports mild nonradiating midsternal chest discomfort this morning, denies shortness of breath or diaphoresis. Echo pending. Afebrile, maintaining O2 sats in the high 90s on 2 L nasal cannula. Review of Systems ROS Statement: Those systems with pertinent positive or pertinent negative responses have been documented in the HPI. ROS Other: All systems not noted in ROS Statement are negative. Past Medical History Past Medical History: Fibromyalgia, GERD/Reflux, Hypertension, Osteoarthritis (OA) Additional Past Medical History / Comment(s): 2016 Precancerous cells in R breast with lumpectomy and radiation, History of Any Multi-Drug Resistant Organisms: None Reported Past Surgical History: Breast Surgery, Orthopedic Surgery Additional Past Surgical History / Comment(s): Rt breast lumpectomy- preecancerous tissue06/13/16, RT BREAST CORE BX, RT KNEE MENISCUS REPAIR, LT FOOT SX/TENDON Past Anesthesia/Blood Transfusion Reactions: No Reported Reaction Past Psychological History: Depression Additional Psychological History / Comment(s): USES CYMBALTA FOR BOTH PAIN AND DEPRESSION Smoking Status: Current every day smoker Past Alcohol Use History: Occasional Additional Past Alcohol Use History / Comment(s): STARTED SMOKING AT AGE 14 (1973)<1PPD Past Drug Use History: None Reported - Past Family History Father Family Medical History: Cancer Additional Family Medical History / Comment(s): LIVER Medications and Allergies Home Medications Medication Instructions Recorded Confirmed Type Cyclobenzaprine [Flexeril] 10 mg PO HS 07/12/16 12/07/23 History DULoxetine HCL [Cymbalta] 60 mg PO DAILY 07/12/16 12/07/23 History Glucosam/Pernell-Msm1/C/Daniel/Bosw 1 tab PO DAILY 07/12/16 12/07/23 History [Glucosamine-Chondroitin Tablet] Losartan Potassium 100 mg PO DAILY 07/12/16 12/07/23 History Multivitamins, Thera [Multivitamin 1 tab PO DAILY 11/19/20 12/07/23 History (formulary)] Gabapentin [Neurontin] 300 mg PO HS 07/20/23 12/07/23 History Omeprazole 20 mg PO DAILY 07/24/23 12/07/23 History Fexofenadine HCl [Maddy Allergy] 180 mg PO DAILY 07/28/23 12/07/23 History HYDROcodone/APAP 5-325MG [[place] 1 tab PO BID PRN 12/07/23 12/07/23 History 5-325] Allergies Allergy/AdvReac Type Severity Reaction Status Date / Time Penicillins Allergy Itching of Verified 12/07/23 08:04 hands erythromycin base AdvReac stomach Verified 12/07/23 08:04 irritation Physical Exam Vitals: Vital Signs Temp Pulse Resp BP Pulse Ox 12/07/23 16:00 97.7 F 73 20 146/94 96 12/07/23 15:00 76 14 122/79 97 12/07/23 14:00 80 14 125/81 95 12/07/23 13:00 78 14 142/91 95 12/07/23 12:05 84 12/07/23 12:00 97.2 F L 77 14 129/87 99 12/07/23 11:50 86 12/07/23 11:00 83 16 142/93 96 12/07/23 10:00 80 14 140/95 96 12/07/23 09:00 81 11 L 163/102 96 12/07/23 08:00 98.2 F 79 14 167/113 96 12/07/23 07:56 97 12/07/23 07:00 89 20 145/89 96 12/07/23 06:00 93 20 142/84 96 12/07/23 05:00 87 6 L 116/87 95 12/07/23 04:45 94 24 139/89 96 12/07/23 04:30 96 11 L 144/86 96 12/07/23 04:15 88 0 L 137/92 95 12/07/23 04:00 97.4 F L 92 4 L 130/87 95 12/07/23 03:45 92 5 L 127/82 95 12/07/23 03:30 89 11 L 128/80 94 L 12/07/23 03:15 89 9 L 115/79 95 12/07/23 03:00 88 15 112/68 94 L 12/07/23 02:45 89 17 106/69 94 L 12/07/23 02:30 90 26 H 122/78 93 L 12/07/23 02:15 89 13 119/77 94 L 12/07/23 02:00 92 9 L 127/87 95 12/07/23 01:45 89 17 138/92 96 12/07/23 01:30 89 29 H 137/117 97 12/07/23 01:15 36 H 131/85 98 12/07/23 01:00 86 47 H 137/83 97 12/07/23 00:45 90 8 L 148/91 100 12/07/23 00:30 89 8 L 152/93 99 12/07/23 00:15 85 13 154/94 99 12/07/23 00:00 81 10 L 167/103 94 L 12/06/23 23:45 85 6 L 158/98 96 12/06/23 23:30 86 6 L 158/101 94 L 12/06/23 23:15 85 20 161/89 94 L 12/06/23 23:00 80 12 91 L 12/06/23 22:55 87 15 90 L 12/06/23 20:48 99 28 H 187/104 93 L 12/06/23 20:45 97.9 F 72 18 154/97 96 Intake and Output 12/07/23 12/07/23 12/07/23 06:59 14:59 22:59 Intake Total 958.625 235.792 20 Output Total 1200 405 0 Balance -241.375 -169.208 20 Intake: IV 634 80 20 0.9 KVO 10 80 20 Sodium Chloride 0.9% 1, 624 000 ml In Empty Bag 1 bag @ 1 ML/KG/HR 104.326 mls /hr IV .Q9H36M NIKHIL Rx#: [id number] Intake, IV Titration . 155.792 Amount Heparin Sod,Pork in 0.45% 118.667 NaCl 25,000 unit In 0.45 % NaCl 1 250ml.bag @ 9. 5853 UNITS/KG/HR 10 mls/ hr IV .Q24H NIKHIL Rx#: [id number] Nitroglycerin-D5w Pmx 50 .625 37.125 mg In Dextrose/Water 1 250ml.bag @ 5 MCG/MIN 1.5 mls/hr IV .Q24H NIKHIL Rx#: [id number] Oral 300 Output: Urine 1200 400 0 Emesis 5 Other: Voiding Method External Catheter External Catheter External Catheter # Voids 0 0 Weight 112 kg 112 kg VITAL SIGNS: [As above] GENERAL: Alert and oriented 3, sitting up in bed, no acute distress. HEENT: Normocephalic,Conjunctivae normal. eyes normal. MMM. NECK: Supple, No JVD. CARDIOVASCULAR: S1, S2 regular. No murmur. RESPIRATION: Unlabored, equal air entry, fine expiratory wheezing ABDOMEN: Soft, nondistended, nontender . No guarding. no masses palpable. No ascites, No hepatosplenomegaly.Bowel sounds heard. EXTREMITIES: No cyanosis, no edema, no calf tenderness positive DP pulses PSYCHIATRY: Alert and oriented X3, mood and affect normal. NERVOUS SYSTEM: Cranial N 2-12 grossly normal. No focal deficits. Strength and sensation grossly intact. Skin: Warm and dry, no rash Results CBC & Chem 7: 12/07/23 06:05 Labs: Abnormal Lab Results - Last 24 Hours (Table) 12/06/23 12/07/23 12/07/23 Range/Units 22:54 06:05 06:05 Creatinine 0.42 L (0.52-1.04) mg/dL POC Glucose (mg/dL) 119 H (70-110) mg/dL Troponin I 20.900 H* (0.000-0.034) ng/mL Thrombosis Risk Factor Assmnt - Choose All That Apply Each Factor Represents 1 point: Acute [place], Obesity (BMI >25) Each Risk Factor Represents 2 Points: Age 61-74 years Other congenital or acquired thrombophilia - If yes, enter type in comment: No Thrombosis Risk Factor Assessment Total Risk Factor Score: 4 Thrombosis Risk Factor Assessment Level: Moderate Risk Assessment and Plan Assessment: Acute anterior STEMI status postcardiac catheterization, PCI Hypertension Acute hypoxic respiratory failure secondary to the above Hyperlipidemia Gastroesophageal reflux disease Fibromyalgia Depression Ongoing nicotine dependence COPD Plan: Continue on current medication regimen ,monitoring and symptomatic treatment. Echo pending. postcardiac cath management as per cardiology; aspirin, Brilinta, ARB, beta-yayo, statin and nitroglycerin drip. Aggressive pulmonary toileting with smoking sensation reinforced. Nicotine patch ordered. Nebulized bronchodilators and Symbicort ordered. Increase activity as tolerated. Aggressive pulmonary toileting with incentive spirometer reinforced. The impression and plan of care has been dictated as directed. : I performed a history and examination of this patient, discussed the same with the dictator. I agree with the dictator's note ,documented as a scribe. Any additional findings or plans will be noted.
[2023-12-07] MEDS: ACETAMINOPHEN TAB 325 MG TAB PO PRN (18:20)
[2023-12-07] MEDS: GABAPENTIN 300 MG CAP PO SCH (20:24)
[2023-12-07] MEDS: CYCLOBENZAPRINE 10 MG TAB PO SCH (20:25)
[2023-12-08 05:10] LABS: Basophils # (A) 0.1 k/uL (0-0.2); Basophils % (A) 1 %; Eosinophils # (A) 0.2 k/uL (0-0.7); Eosinophils % (A) 1 %; HGB 13.3 gm/dL (11.4-16.0); Lymphocytes # (A) 2.9 k/uL (1.0-4.8); Lymphocytes % (A) 19 %; MCH 31.1 pg (25.0-35.0); MCHC 33.3 g/dL (31.0-37.0); MCV 93.4 fL (80.0-100.0); Mean Platelet Volume 7.6; Monocytes # (A) 0.8 k/uL (0-1.0); Monocytes % (A) 5 %; Neutrophils # (A) 10.8 k/uL (1.3-7.7); Neutrophils % (A) 71 %; Platelet Count 348 k/uL (150-450); RBC 4.29 m/uL (3.80-5.40); RDW 13.6 % (11.5-15.5); WBC 15.1 k/uL (3.8-10.6)
[2023-12-08 05:29] LABS: African American GFR (CKD) >90 (>60 ml/min/1.73 sqM); Anion Gap 5 mmol/L; Blood Urea Nitrogen 14 mg/dL (7-17); Calcium 9.8 mg/dL (8.4-10.2); Carbon Dioxide 26 mmol/L (22-30); Chloride 106 mmol/L (98-107); Glucose 105 mg/dL (74-99); Non-African American GFR(CKD) >90 (>60 ml/min/1.73 sqM); Potassium 4.5 mmol/L (3.5-5.1); Sodium 137 mmol/L (137-145)
[2023-12-08] MEDS ORDERED: LORATADINE 10 MG TAB PO SCH (09:00)
[2023-12-08] MEDS: LOSARTAN 50 MG TAB PO SCH (09:14)
[2023-12-08] MEDS: MULTIVITAMINS, THERA 1 EACH TAB PO SCH (09:15)
--- NOTE | 2023-12-08 11:10 | PN ---
PROGRESS NOTE SUBJECTIVE: Cynthia is a 63-year-old lady, who was admitted to the hospital with acute anterior wall myocardial infarction, underwent cardiac catheterization and angioplasty of the LAD. An echocardiogram revealed extensive hypokinesis involving the apex and there is [id number] LV dysfunction with an ejection fraction of 35%. The patient is pain-free this morning, stable hemodynamically. OBJECTIVE: GENERAL: Comfortable at rest. VITAL SIGNS: Stable. NECK: There is no jugular venous distention. CHEST: Reveals good air entry bilaterally. HEART: Reveals first and second heart sounds. No gallop. No murmur. ABDOMEN: Soft. Nontender. EXTREMITIES: Did not reveal any edema. Peripheral pulses are felt. MEDICATIONS: The patient is currently on: 1. Aspirin. 2. Lipitor. 3. Cozaar. 4. Lopressor 25 b.i.d. 5. Nitro paste along with Brilinta. LABORATORY DATA: Her labs today showed a hemoglobin of 13.3, platelet count is 348, potassium is 4.5, and creatinine is 0.4. The troponin yesterday was about 20. ASSESSMENT: 1. Acute anterior wall myocardial infarction. 2. Ischemic cardiomyopathy. PLAN: Continue current medications. I will stop the nitro paste and start the patient on Imdur 30 mg daily. The patient is stable to be transferred to [address] [place] [address]. Possible discharge home tomorrow or the day after. MMODL / IJN: [id number] /
[2023-12-08] MEDS: ISOSORBIDE MONONITRATE ER 30 MG TAB.ER.24H PO SCH (12:06)
--- NOTE | 2023-12-08 12:47 | P.PN ---
Subjective Progress Note Date: 12/08/23 This is a 63-year-old female with past medical history significant for osteoarthritis , fibromyalgia, gastroesophageal reflux disease, hypertension, depression, ongoing nicotine dependence-since 1972, obesity , recent right total knee arthroplasty 08/13 and multiple other medical issues return to the ER with acute midsternal chest pain radiating through to the back accompanied by nausea. Earlier in the afternoon on patient's initial ER visit,troponins negative x 3 and ER reported EKG without significant ST changes, chest x-ray reported nonacute ,offered observation admission, but patient chose to go home. Chest pain returned ,as previously but with increased intensity, midsternal radiating through to her back, returned to the ER, EKG reported ST elevations in anterior leads as per cardiology's review, hypertensive, troponin 20.9 . Received aspirin with initiation of nitro and heparin drips and taken for cardiac catheterization. Cardiac catheterization reported CAD including 100% mid LAD s tenosis, 40% circumflex stenosis, 40% RCA stenosis, status post PCI proximal and mid LAD with overlapping 3.5 x 8, 3.0 x 18 mm, 3.0 x 20 mm Xience JUAN CARLOS postdilated with a 3.5 noncompliant balloon, elevated left-sided filling pressures. Tolerated procedure well. Currently maintained on nitroglycerin drip. Reports mild nonradiating midsternal chest discomfort this morning, denies shortness of breath or diaphoresis. Echo pending. Afebrile, maintaining O2 sats in the high 90s on 2 L nasal cannula. 12/08. Patient seen and examined. Currently denies any chest pain. Patient being transferred out of ICU REVIEW OF SYSTEMS: CONSTITUTIONAL: No fever, no malaise,. CARDIOVASCULAR: No chest pain, no palpitations, no syncope. PULMONARY: No shortness of breath, no cough, GASTROINTESTINAL: No diarrhea, no nausea, no vomiting, no abdominal pain. NEUROLOGICAL: No headaches, no weakness, PHYSICAL EXAMINATION: GENERAL: The patient is alert and oriented x3, not in any acute distress. Well d eveloped, well nourished. HEENT: Pupils are round and equally reacting to light. EOMI. No scleral icterus. No conjunctival pallor. Normocephalic, atraumatic. No pharyngeal erythema. No thyromegaly. CARDIOVASCULAR: S1 and S2 present. No murmurs, rubs, or gallops. PULMONARY: Chest is clear to auscultation, no wheezing or crackles. ABDOMEN: Soft, nontender, nondistended, normoactive bowel sounds. No palpable organomegaly. MUSCULOSKELETAL: No joint swelling or deformity. EXTREMITIES: No cyanosis, clubbing, or pedal edema. NEUROLOGICAL: Gross neurological examination did not reveal any focal deficits. SKIN: No rashes. Assessment and plan Acute anterior STEMI status postcardiac catheterization, PCI Hypertension Acute hypoxic respiratory failure secondary to the above Hyperlipidemia Gastroesophageal reflux disease Fibromyalgia Depression Ongoing nicotine dependence COPD Monitor vital signs Monitor CBC Monitor CMP Continue telemetry monitoring S/p cardiac catheterization with stenting of proximal and mid LAD Continue aspirin, Brilinta, Lipitor. Continue losartan Continue Lopressor Cardiology following Labs and medication were reviewed.. Continue same treatment. Continue with s ymptomatic treatment. Resume home medication. Monitor labs and vitals. DVT and GI prophylaxis. Further recommendations as per clinical course of the patient Dictation was produced using [employer] dictation software. please excuse any grammatical, word or spelling errors. Objective - Vital Signs Vital signs: Vital Signs Temp 98 F 12/08/23 04:00 Pulse 94 12/08/23 08:27 Resp 24 12/08/23 07:00 BP 129/85 12/08/23 07:00 Pulse Ox 95 12/08/23 07:00 FiO2 Intake & Output 12/07/23 12/08/23 12/08/23 18:59 06:59 18:59 Intake Total 277.242 10 Output Total 405 2000 0 Balance -127.758 -1989 0 Weight 112 kg 105.2 kg Intake: IV 120 10 0.9 KVO 120 10 Intake, IV Titration 157.242 Amount Heparin Sod,Pork in 0.45% 118.667 NaCl 25,000 unit In 0.45 % NaCl 1 250ml.bag @ 9. 5853 UNITS/KG/HR 10 mls/ hr IV .Q24H NIKHIL Rx#: [id number] Nitroglycerin-D5w Pmx 50 38.575 mg In Dextrose/Water 1 250ml.bag @ 5 MCG/MIN 1.5 mls/hr IV .Q24H NIKHIL Rx#: [id number] Output: Urine 400 2000 0 Emesis 5 Other: Voiding Method External Catheter Bedside Commode # Voids 0 0 - Labs CBC & Chem 7: 12/08/23 04:36 12/08/23 04:36 Labs: Abnormal Lab Results - Last 24 Hours (Table) 12/07/23 12/08/23 12/08/23 Range/Units 06:05 04:36 04:36 WBC 15.1 H (3.8-10.6) k/uL Neutrophils # 10.8 H (1.3-7.7) k/uL Creatinine 0.48 L (0.52-1.04) mg/dL Glucose 105 H (74-99) mg/dL Troponin I 20.900 H* (0.000-0.034) ng/mL
[2023-12-09] MEDS: METOPROLOL TARTRATE 25 MG TAB PO SCH (08:39)
--- NOTE | 2023-12-09 09:13 | P.PN ---
Subjective Progress Note Date: 12/09/23 History of present illness: This is a 63-year-old female who presented to the hospital with acute anterior wall myocardial infarction, underwent cardiac catheterization and angioplasty of the LAD. Echocardiogram reveals extensive hypokinesis involving the apex and moderate to severe LV dysfunction with EF of 35%. Patient has been transferred out of the intensive care unit is seen today on the cardiac stepdown unit. She denies having any chest pain, no lightheadedness or dizziness, no palpitations. She states she has been ambulating in her room to the bathroom and back. Blood pressure 123/74, heart rate between 91 and 110. Physical examination: Gen: This is a 63-year-old female in no acute distress VS: reviewed HEENT: Head is atraumatic, normocephalic. Pupils equal, round. Sclerae is anicte alyce. LUNGS: Clear to auscultation. No wheezes or rhonchi. No intercostal retractions. HEART: Regular rate and rhythm. No murmur. ABDOMEN: Soft No tenderness. EXTREMITIES: No pedal edema. No calf tenderness. NEUROLOGICAL: Patient is awake, alert and oriented x3. Assessment: Acute anterior wall myocardial infarction Ischemic cardiomyopathy Hypertension Tobacco use and dependence Plan: Continue current cardiac medications including aspirin 81 mg daily, Lipitor 80 mg daily, Imdur 30 mg daily, losartan 50 mg daily, Brilinta 90 mg twice daily Increase Lopressor to 37.5 mg twice daily Continue nicotine patch and smoking cessation Monitor patient another 24 hours and plan for discharge home on Sunday. Nurse practitioner note has been reviewed, I agree with documented findings and plan of care. Patient was seen and examined. Objective - Vital Signs Vital signs: Vital Signs Temp 98.5 F 12/09/23 04:00 Pulse 72 12/09/23 04:00 Resp 17 12/09/23 04:00 BP 123/74 12/09/23 04:00 Pulse Ox 96 12/09/23 04:00 FiO2 Intake & Output 12/08/23 12/09/23 12/09/23 18:59 06:59 18:59 Intake Total 840 Output Total 500 300 Balance 340 -300 Intake: IV 0 0.9 KVO 0 Oral 840 Output: Urine 500 300 Other: Voiding Method Bedside Commode Bedside Commode - Labs CBC & Chem 7: 12/08/23 04:36 12/08/23 04:36
--- NOTE | 2023-12-09 12:29 | P.PN ---
Subjective Progress Note Date: 12/09/23 This is a 63-year-old female with past medical history significant for osteoarthritis , fibromyalgia, gastroesophageal reflux disease, hypertension, depression, ongoing nicotine dependence-since 1972, obesity , recent right total knee arthroplasty 08/13 and multiple other medical issues return to the ER with acute midsternal chest pain radiating through to the back accompanied by nausea. Earlier in the afternoon on patient's initial ER visit,troponins negative x 3 and ER reported EKG without significant ST changes, chest x-ray reported nonacute ,offered observation admission, but patient chose to go home. Chest pain returned ,as previously but with increased intensity, midsternal radiating through to her back, returned to the ER, EKG reported ST elevations in anterior leads as per cardiology's review, hypertensive, troponin 20.9 . Received aspirin with initiation of nitro and heparin drips and taken for cardiac catheterization. Cardiac catheterization reported CAD including 100% mid LAD s tenosis, 40% circumflex stenosis, 40% RCA stenosis, status post PCI proximal and mid LAD with overlapping 3.5 x 8, 3.0 x 18 mm, 3.0 x 20 mm Xience JUAN CARLOS postdilated with a 3.5 noncompliant balloon, elevated left-sided filling pressures. Tolerated procedure well. Currently maintained on nitroglycerin drip. Reports mild nonradiating midsternal chest discomfort this morning, denies shortness of breath or diaphoresis. Echo pending. Afebrile, maintaining O2 sats in the high 90s on 2 L nasal cannula. 12/08. Patient seen and examined. Currently denies any chest pain. Patient being transferred out of ICU 12/09. Patient seen and examined. Denies any chest pain or shortness of breath. Vital signs stable REVIEW OF SYSTEMS: CONSTITUTIONAL: No fever, no malaise,. CARDIOVASCULAR: No chest pain, no palpitations, no syncope. PULMONARY: No shortness of breath, no cough, GASTROINTESTINAL: No diarrhea, no nausea, no vomiting, no abdominal pain. NEUROLOGICAL: No headaches, no weakness, PHYSICAL EXAMINATION: GENERAL: The patient is alert and oriented x3, not in any acute distress. Well developed, well nourished. HEENT: Pupils are round and equally reacting to light. EOMI. No scleral icterus. No conjunctival pallor. Normocephalic, atraumatic. No pharyngeal erythema. No thyromegaly. CARDIOVASCULAR: S1 and S2 present. No murmurs, rubs, or gallops. PULMONARY: Chest is clear to auscultation, no wheezing or crackles. ABDOMEN: Soft, nontender, nondistended, normoactive bowel sounds. No palpable organomegaly. MUSCULOSKELETAL: No joint swelling or deformity. EXTREMITIES: No cyanosis, clubbing, or pedal edema. NEUROLOGICAL: Gross neurological examination did not reveal any focal deficits. SKIN: No rashes. Assessment and plan Acute anterior STEMI status postcardiac catheterization, PCI Hypertension Acute hypoxic respiratory failure secondary to the above Hyperlipidemia Gastroesophageal reflux disease Fibromyalgia Depression Ongoing nicotine dependence COPD Monitor vital signs Monitor CBC Monitor CMP Continue telemetry monitoring S/p cardiac catheterization with stenting of proximal and mid LAD Continue aspirin, Brilinta, Lipitor. Continue losartan Continue Lopressor, dose increased to 37.5 mg twice daily Cardiology following Labs and medication were reviewed.. Continue same treatment. Continue with symptomatic treatment. Resume home medication. Monitor labs and vitals. DVT and GI prophylaxis. Further recommendations as per clinical course of the patient Dictation was produced using [employer] dictation software. please excuse any grammatical, word or spelling errors. Objective - Vital Signs Vital signs: Vital Signs Temp 98.6 F 12/09/23 08:00 Pulse 90 12/09/23 08:00 Resp 16 12/09/23 08:00 BP 113/62 12/09/23 08:00 Pulse Ox 95 12/09/23 08:00 FiO2 Intake & Output 12/08/23 12/09/23 12/09/23 18:59 06:59 18:59 Intake Total 840 Output Total 500 300 Balance 340 -300 Intake: IV 0 0.9 KVO 0 Oral 840 Output: Urine 500 300 Other: Voiding Method Bedside Commode Bedside Commode - Labs CBC & Chem 7: 12/08/23 04:36 12/08/23 04:36
[2023-12-09] MEDS ORDERED: HYDROcodone/APAP 5-325MG 1 EACH TAB PO SCH (21:00)
[2023-12-10] MEDS: HYDROcodone/APAP 5-325MG 1 EACH TAB PO PRN (01:17)
[2023-12-10] MEDS: METOPROLOL TARTRATE 50 MG TAB PO SCH (09:50)
[2023-12-10 10:02] LABS: Basophils # (A) 0.1 k/uL (0-0.2); Basophils % (A) 1 %; Eosinophils # (A) 0.3 k/uL (0-0.7); Eosinophils % (A) 2 %; HCT 42.4 % (34.0-46.0); HGB 13.7 gm/dL (11.4-16.0); Lymphocytes % (A) 31 %; MCH 30.5 pg (25.0-35.0); MCHC 32.3 g/dL (31.0-37.0); MCV 94.3 fL (80.0-100.0); Mean Platelet Volume 8.1; Monocytes # (A) 0.5 k/uL (0-1.0); Monocytes % (A) 4 %; Neutrophils # (A) 7.6 k/uL (1.3-7.7); Neutrophils % (A) 60 %; Platelet Count 357 k/uL (150-450); RDW 13.6 % (11.5-15.5); WBC 12.8 k/uL (3.8-10.6)
[2023-12-10 10:13] VITALS: TEMP 97.8
[2023-12-10 10:13] LABS: ALT 39 U/L (4-34); AST 75 U/L (14-36); African American GFR (CKD) >90 (>60 ml/min/1.73 sqM); Albumin 4.1 g/dL (3.5-5.0); Alkaline Phosphatase 111 U/L (38-126); Anion Gap 10 mmol/L; Blood Urea Nitrogen 17 mg/dL (7-17); Calcium 9.7 mg/dL (8.4-10.2); Carbon Dioxide 22 mmol/L (22-30); Chloride 106 mmol/L (98-107); Glucose 135 mg/dL (74-99); Non-African American GFR(CKD) >90 (>60 ml/min/1.73 sqM); Sodium 138 mmol/L (137-145); Total Bilirubin 0.9 mg/dL (0.2-1.3); Total Protein 6.8 g/dL (6.3-8.2)
[2023-12-10 10:17] LABS: Potassium 4.4 mmol/L (3.5-5.1)
--- NOTE | 2023-12-10 11:22 | P.PN ---
Subjective HISTORY OF PRESENT ILLNESS: This is a 63-year-old female who presented to the hospital with acute anterior wall myocardial infarction, underwent cardiac catheterization and angioplasty of the LAD. Echocardiogram reveals extensive hypokinesis involving the apex and moderate to severe LV dysfunction with EF of 35%. Patient has been transferred out of the intensive care unit is seen today on the cardiac stepdown unit. She denies having any chest pain, no lightheadedness or dizziness, no palpitations. She states she has been ambulating in her room to the bathroom and back. Blood pressure 123/74, heart rate between 91 and 110. 12/10/2023 Patient examined this morning at the bedside. Patient denies chest pain or pressure. She denies shortness of breath. Vital signs are stable. PHYSICAL EXAM: VITAL SIGNS: Reviewed. GENERAL: Well-developed in no acute distress. NECK: Supple. No JVD or thyromegaly LUNGS: Respirations even and unlabored. Lungs essentially clear to auscultation bilaterally. HEART: Regular rate and rhythm. S1 and S2 heard. EXTREMITIES: Normal range of motion. No clubbing or cyanosis. Peripheral pulses intact. No lower extremity edema ASSESSMENT: Acute anterior wall myocardial infarction, status post angioplasty of LAD Ischemic cardiomyopathy Hypertension Tobacco use and dependence PLAN: Continue dual antiplatelet therapy with aspirin and Brilinta Continue high intensity statin Continue additional cardiac medications Patient is stable for discharge home today from a cardiac standpoint Nurse practitioner note has been reviewed by physician. Signing provider agrees with the documented findings, assessment, and plan of care documented by TRANSFORMER MOLDER as a scribe. Objective - Vital Signs Vital signs: Vital Signs Temp 97.8 F 12/10/23 09:44 Pulse 86 12/10/23 09:44 Resp 16 12/10/23 09:44 BP 114/61 12/10/23 09:44 Pulse Ox 96 12/10/23 09:44 FiO2 Intake & Output 12/09/23 12/10/23 12/10/23 18:59 06:59 18:59 Intake Total 716 128 Output Total 300 Balance 716 -300 128 Intake: IV 10 Invasive Line 1 10 Oral 716 118 Output: Urine 300 Other: Voiding Method Bedside Commode Bedside Commode Bedside Commode # Voids 5 - Labs CBC & Chem 7: 12/10/23 08:52 12/10/23 08:52 Labs: Abnormal Lab Results - Last 24 Hours (Table) 12/10/23 12/10/23 Range/Units 08:52 08:52 WBC 12.8 H (3.8-10.6) k/uL Glucose 135 H (74-99) mg/dL AST 75 H (14-36) U/L ALT 39 H (4-34) U/L
[2023-12-10 13:45] VITALS: BP 107/65; PULSE 68; RESP 18
--- NOTE | 2023-12-10 14:37 | P.DS ---
Providers Date of admission: 12/06/23 21:46 Expected date of discharge: 12/10/23 Attending physician: Valerio Banegas Consults: 12/06/23 21:43 Consult Physician Stat Consulting Provider: Agapito Jimenez Consult Reason/Comments: STEMI Do you want consulting provider notified?: Yes 12/06/23 23:27 Consult Physician Routine Consulting Provider: [facility] Consult Reason/Comments: Post Interventional Patient Do you want consulting provider notified?: Already Contacted Primary care physician: Valerio Banegas Hospital Course: Final diagnoses Acute anterior STEMI, S/P cardiac catheterization, PCI LAD Ischemic cardiomyopathy Hypertension Acute hypoxic respiratory failure secondary to the above Hyperlipidemia Gastroesophageal reflux disease Fibromyalgia Depression Ongoing nicotine dependence COPD Hospital course:This is a 63-year-old female with past medical history significant for osteoarthritis , fibromyalgia, gastroesophageal reflux disease, hypertension, depression, ongoing nicotine dependence-since 1972, obesity , recent right total knee arthroplasty 08/13 and multiple other medical issues return to the ER with acute midsternal chest pain radiating through to the back accompanied by nausea. Earlier in the afternoon on patient's initial ER visit,troponins negative x 3 and ER reported EKG without significant ST changes, chest x-ray reported nonacute ,offered observation admission, but patient chose to go home. Chest pain returned ,as previously but with increased intensity, midsternal radiating through to her back, returned to the ER, EKG reported ST elevations in anterior leads as per cardiology's review, hypertensive, troponin 20.9 . Received aspirin with initiation of nitro and heparin drips and taken for cardiac catheterization. Cardiac catheterization reported CAD including 100% mid LAD stenosis, 40% circumflex stenosis, 40% RCA stenosis, status post PCI proximal and mid LAD with overlapping 3.5 x 8, 3.0 x 18 mm, 3.0 x 20 mm Xience JUAN CARLOS postdilated with a 3.5 noncompliant balloon, elevated left-sided filling pressures. Tolerated procedure well. Currently maintained on nitroglycerin drip. Reports mild nonradiating midsternal chest discomfort this morning, denies shortness of breath or diaphoresis. Echo pending. Afebrile, maintaining O2 sats in the high 90s on 2 L nasal cannula. Echo reported mild increased LV wall thickness, EF 35 to 40% with anterior apical hypokinesis. Medication regimen further adjusted as per cardiology. Significant clinical improvement. Denies chest pain, palpitations or shortness of breath. Cleared by cardiology for discharge. Patient will be discharged home today in a stable condition with guarded prognosis. The impression and plan of care has been dictated as directed. : I performed a history and examination of this patient, discussed the same with the dictator. I agree with the dictator's note ,documented as a scribe. Any additional findings or plans will be noted. Patient Condition at Discharge: Stable Plan - Discharge Summary Discharge Rx Participant: Yes New Discharge Prescriptions: New Aspirin 81 mg PO DAILY tab Losartan [Cozaar] 50 mg PO DAILY #30 tab Nicotine 21Mg/24Hr Patch [Habitrol] 1 patch TRANSDERM DAILY #30 patch Metoprolol Tartrate [Lopressor] 50 mg PO BID #60 tab Aspirin EC [Ecotrin Low Dose] 81 mg PO DAILY #30 tab Albuterol Inhaler [Ventolin Hfa Inhaler] 2 puff INHALATION QID PRN #8 gm PRN Reason: Shortness Of Breath Ticagrelor [Brilinta] 90 mg PO BID #60 tab Atorvastatin [Lipitor] 80 mg PO HS #30 tab Nitroglycerin Sl Tabs [Nitrostat] 0.4 mg SUBLINGUAL Q5M PRN #100 tab PRN Reason: Chest Pain Isosorbide Mononitrate ER [Imdur] 30 mg PO DAILY #30 tab Budesonide/Formoterol Fumarate [Symbicort 80-4.5 Mcg Inhaler] 2 puff INHALATION BID #10.2 gm Continue Glucosam/Pernell-Msm1/C/Daniel/Bosw [Glucosamine-Chondroitin Tablet] 1 tab PO DAILY DULoxetine HCL [Cymbalta] 60 mg PO DAILY Cyclobenzaprine [Flexeril] 10 mg PO HS Multivitamins, Thera [Multivitamin (formulary)] 1 tab PO DAILY Gabapentin [Neurontin] 300 mg PO HS Omeprazole 20 mg PO DAILY Fexofenadine HCl [Maddy Allergy] 180 mg PO DAILY HYDROcodone/APAP 5-325MG [[place] 5-325] 1 tab PO BID PRN PRN Reason: Pain Discontinued Losartan Potassium 100 mg PO DAILY Discharge Medication List Cyclobenzaprine [Flexeril] 10 mg PO HS 07/12/16 [History] DULoxetine HCL [Cymbalta] 60 mg PO DAILY 07/12/16 [History] Glucosam/Prenell-Msm1/C/Daniel/Bosw [Glucosamine-Chondroitin Tablet] 1 tab PO DAILY 07/12/16 [History] Multivitamins, Thera [Multivitamin (formulary)] 1 tab PO DAILY 11/19/20 [History] Gabapentin [Neurontin] 300 mg PO HS 07/20/23 [History] Omeprazole 20 mg PO DAILY 07/24/23 [History] Fexofenadine HCl [Maddy Allergy] 180 mg PO DAILY 07/28/23 [History] HYDROcodone/APAP 5-325MG [[place] 5-325] 1 tab PO BID PRN 12/07/23 [History] Albuterol Inhaler [Ventolin Hfa Inhaler] 2 puff INHALATION QID PRN #8 gm 12/10/23 [Rx] Aspirin 81 mg PO DAILY tab 12/10/23 [Rx] Aspirin EC [Ecotrin Low Dose] 81 mg PO DAILY #30 tab 12/10/23 [Rx] Atorvastatin [Lipitor] 80 mg PO HS #30 tab 12/10/23 [Rx] Budesonide/Formoterol Fumarate [Symbicort 80-4.5 Mcg Inhaler] 2 puff INHALATION BID #10.2 gm 12/10/23 [Rx] Isosorbide Mononitrate ER [Imdur] 30 mg PO DAILY #30 tab 12/10/23 [Rx] Losartan [Cozaar] 50 mg PO DAILY #30 tab 12/10/23 [Rx] Metoprolol Tartrate [Lopressor] 50 mg PO BID #60 tab 12/10/23 [Rx] Nicotine 21Mg/24Hr Patch [Habitrol] 1 patch TRANSDERM DAILY #30 patch 12/10/23 [Rx] Nitroglycerin Sl Tabs [Nitrostat] 0.4 mg SUBLINGUAL Q5M PRN #100 tab 12/10/23 [Rx] Ticagrelor [Brilinta] 90 mg PO BID #60 tab 12/10/23 [Rx] Follow up Appointment(s)/Referral(s): Valerio Banegas DO [Primary Care Provider] - 12/17/23 1:20 pm Julio Cesar Quinonez MD [STAFF PHYSICIAN] - 1 Week (office will call to make follow- up appointment ) Patient Instructions/Handouts: *[facility] - After Heart Catheterization - [facility] Instructions, Heart Attack (DC), Heart Healthy Diet (DC), Heart Catheterization (DC) Activity/Diet/Wound Care/Special Instructions: Confirm follow-up appointment with cardiology [facility] Discharge Disposition: HOME SELF-CARE
--- NOTE | 2023-12-11 13:36 | P.CRDCN ---
History of Present Illness History of present illness: HISTORY OF PRESENTING ILLNESS This is a pleasant 63-year-old with past medical history significant for Fibromyalgia, GERD, hypertension, tobacco abuse, lumpectomy. Patient states she initially started having chest pain associated with some nausea and some upset stomach and therefore presented to emergency department at approximately 2 PM. Patient had 2 sets of troponins which were normal and EKG without significant ST changes and was offered admission or close follow-up and patient went home. After approximately 1 hour patient developed severe 10 out of 10 chest pain radiating to her back associated with some nausea. EKG showed ST elevations in anterior leads. Blood pressure extremely elevated 180s over 100s. Patient was given aspirin, heparin and started on nitro drip. She does smoke, no alcohol or no illicit drugs. REVIEW OF SYSTEMS At the time of my exam: CONSTITUTIONAL: Denies fever or chills. CARDIOVASCULAR: +chest pain, +shortness of breath, no orthopnea, PND or palpitations. RESPIRATORY: Denies cough. GASTROINTESTINAL: Denies abdominal pain, diarrhea, constipation, nausea or vomiting. MUSCULOSKELETAL: Denies myalgias. NEUROLOGIC: Denies numbness, tingling or weakness. ENDOCRINE: Denies fatigue, weight change, polydipsia or polyurina. GENITOURINARY: Denies burning, hematuria or urgency with micturation. HEMATOLOGIC: Denies history of anemia or bleeding. PHYSICAL EXAMINATION Vital signs reviewed. CONSTITUTIONAL: In distress. HEENT: Head is normocephalic. Pupils are equal, round. Sclerae anicteric. Mucous membranes of the mouth are moist. No JVD. No carotid bruit. CHEST EXAMINATION: Lungs are clear to auscultation. No chest wall tenderness is noted on palpation or with deep breathing. HEART EXAMINATION: Regular rate and rhythm. S1, S2 heard. No murmurs, gallops or rub. ABDOMEN: Soft, nontender. Positive bowel sounds. EXTREMITIES: 2+ peripheral pulses, no lower extremity edema and no calf tenderness. NEUROLOGIC EXAMINATION: Patient is awake, alert and oriented x3. ASSESSMENT 1. Anterior STEMI 2. Hypertension 3. Hyperlipidemia 4. Tobacco abuse PLAN Patient with starting chest pain and worsened episode with anterior ST elevations. Aspirin and heparin drip and increase nitro drip. Discuss heart catheterization patient agreeable. Check 2-D echo. Tobacco cessation recommended. Further recommendations to follow. Past Medical History Past Medical History: Fibromyalgia, GERD/Reflux, Hypertension, Osteoarthritis (OA) Additional Past Medical History / Comment(s): 2016 Precancerous cells in R breast with lumpectomy and radiation, History of Any Multi-Drug Resistant Organisms: None Reported Past Surgical History: Breast Surgery, Orthopedic Surgery Additional Past Surgical History / Comment(s): Rt breast lumpectomy- preecancerous tissue06/13/16, RT BREAST CORE BX, RT KNEE MENISCUS REPAIR, LT FOOT SX/TENDON Past Anesthesia/Blood Transfusion Reactions: No Reported Reaction Past Psychological History: Depression Smoking Status: Current every day smoker Past Alcohol Use History: Occasional Past Drug Use History: None Reported - Past Family History Father Family Medical History: Cancer Additional Family Medical History / Comment(s): LIVER Medications and Allergies Home Medications Medication Instructions Recorded Confirmed Type Cyclobenzaprine [Flexeril] 10 mg PO HS 07/12/16 12/07/23 History DULoxetine HCL [Cymbalta] 60 mg PO DAILY 07/12/16 12/07/23 History Glucosam/Pernell-Msm1/C/Daniel/Bosw 1 tab PO DAILY 07/12/16 12/07/23 History [Glucosamine-Chondroitin Tablet] Multivitamins, Thera [Multivitamin 1 tab PO DAILY 11/19/20 12/07/23 History (formulary)] Gabapentin [Neurontin] 300 mg PO HS 07/20/23 12/07/23 History Omeprazole 20 mg PO DAILY 07/24/23 12/07/23 History Fexofenadine HCl [Maddy Allergy] 180 mg PO DAILY 07/28/23 12/07/23 History HYDROcodone/APAP 5-325MG [[place] 1 tab PO BID PRN 12/07/23 12/07/23 History 5-325] Albuterol Inhaler [Ventolin Hfa 2 puff INHALATION QID PRN #8 gm 12/10/23 Rx Inhaler] Aspirin 81 mg PO DAILY tab 12/10/23 Rx Aspirin EC [Ecotrin Low Dose] 81 mg PO DAILY #30 tab 12/10/23 Rx Atorvastatin [Lipitor] 80 mg PO HS #30 tab 12/10/23 Rx Budesonide/Formoterol Fumarate 2 puff INHALATION BID #10.2 gm 12/10/23 Rx [Symbicort 80-4.5 Mcg Inhaler] Isosorbide Mononitrate ER [Imdur] 30 mg PO DAILY #30 tab 12/10/23 Rx Losartan [Cozaar] 50 mg PO DAILY #30 tab 12/10/23 Rx Metoprolol Tartrate [Lopressor] 50 mg PO BID #60 tab 12/10/23 Rx Nicotine 21Mg/24Hr Patch [Habitrol] 1 patch TRANSDERM DAILY #30 patch 12/10/23 Rx Nitroglycerin Sl Tabs [Nitrostat] 0.4 mg SUBLINGUAL Q5M PRN #100 tab 12/10/23 Rx Ticagrelor [Brilinta] 90 mg PO BID #60 tab 12/10/23 Rx Allergies Allergy/AdvReac Type Severity Reaction Status Date / Time Penicillins Allergy Itching of Verified 12/07/23 08:04 hands erythromycin base AdvReac stomach Verified 12/07/23 08:04 irritation Physical Exam Vitals: Vital Signs Temp Pulse Resp BP Pulse Ox 12/06/23 19:01 98.4 F 95 18 140/92 96 12/06/23 13:51 98 F 98 18 150/99 95 Intake and Output 12/06/23 12/06/23 12/06/23 06:59 14:59 22:59 Other: Weight 104.326 kg Results 12/10/23 08:52 12/10/23 08:52 Cardiac Enzymes 12/06/23 12/06/23 12/06/23 Range/Units 13:59 13:59 13:59 WBC 11.9 H (3.8-10.6) k/uL RBC 4.75 (3.80-5.40) m/uL Hgb 14.6 (11.4-16.0) gm/dL Hct 44.4 (34.0-46.0) % MCV 93.4 (80.0-100.0) fL MCH 30.8 (25.0-35.0) pg MCHC 33.0 (31.0-37.0) g/dL RDW 13.3 (11.5-15.5) % Plt Count 384 (150-450) k/uL MPV 7.2 Neutrophils % 63 % Lymphocytes % 28 % Monocytes % 4 % Eosinophils % 3 % Basophils % 1 % Neutrophils # 7.5 (1.3-7.7) k/uL Lymphocytes # 3.3 (1.0-4.8) k/uL Monocytes # 0.5 (0-1.0) k/uL Eosinophils # 0.4 (0-0.7) k/uL Basophils # 0.1 (0-0.2) k/uL Sodium 138 (137-145) mmol/L Potassium 4.4 (3.5-5.1) mmol/L Chloride 106 (98-107) mmol/L Carbon Dioxide 22 (22-30) mmol/L Anion Gap 10 mmol/L BUN 21 H (7-17) mg/dL Creatinine 0.55 (0.52-1.04) mg/dL Est GFR (CKD-EPI)AfAm >90 (>60 ml/min/1.73 sqM) Est GFR (CKD-EPI)NonAf >90 (>60 ml/min/1.73 sqM) Glucose 115 H (74-99) mg/dL Calcium 10.0 (8.4-10.2) mg/dL Total Bilirubin 0.4 (0.2-1.3) mg/dL AST 40 H (14-36) U/L ALT 36 H (4-34) U/L Alkaline Phosphatase 126 (38-126) U/L Troponin I 0.017 (0.000-0.034) ng/mL NT-Pro-B Natriuret Pep 459 pg/mL Total Protein 7.5 (6.3-8.2) g/dL Albumin 4.7 (3.5-5.0) g/dL Lipase 84 (23-300) U/L 12/06/23 Range/Units 18:05 WBC (3.8-10.6) k/uL RBC (3.80-5.40) m/uL Hgb (11.4-16.0) gm/dL Hct (34.0-46.0) % MCV (80.0-100.0) fL MCH (25.0-35.0) pg MCHC (31.0-37.0) g/dL RDW (11.5-15.5) % Plt Count (150-450) k/uL MPV Neutrophils % % Lymphocytes % % Monocytes % % Eosinophils % % Basophils % % Neutrophils # (1.3-7.7) k/uL Lymphocytes # (1.0-4.8) k/uL Monocytes # (0-1.0) k/uL Eosinophils # (0-0.7) k/uL Basophils # (0-0.2) k/uL Sodium (137-145) mmol/L Potassium (3.5-5.1) mmol/L Chloride (98-107) mmol/L Carbon Dioxide (22-30) mmol/L Anion Gap mmol/L BUN (7-17) mg/dL Creatinine (0.52-1.04) mg/dL Est GFR (CKD-EPI)AfAm (>60 ml/min/1.73 sqM) Est GFR (CKD-EPI)NonAf (>60 ml/min/1.73 sqM) Glucose (74-99) mg/dL Calcium (8.4-10.2) mg/dL Total Bilirubin (0.2-1.3) mg/dL AST (14-36) U/L ALT (4-34) U/L Alkaline Phosphatase (38-126) U/L Troponin I 0.021 (0.000-0.034) ng/mL NT-Pro-B Natriuret Pep pg/mL Total Protein (6.3-8.2) g/dL Albumin (3.5-5.0) g/dL Lipase (23-300) U/L CBC 12/06/23 Range/Units 13:59 WBC 11.9 H (3.8-10.6) k/uL RBC 4.75 (3.80-5.40) m/uL Hgb 14.6 (11.4-16.0) gm/dL Hct 44.4 (34.0-46.0) % Plt Count 384 (150-450) k/uL Comprehensive Metabolic Panel 12/06/23 Range/Units 13:59 Sodium 138 (137-145) mmol/L Potassium 4.4 (3.5-5.1) mmol/L Chloride 106 (98-107) mmol/L Carbon Dioxide 22 (22-30) mmol/L BUN 21 H (7-17) mg/dL Creatinine 0.55 (0.52-1.04) mg/dL Glucose 115 H (74-99) mg/dL Calcium 10.0 (8.4-10.2) mg/dL AST 40 H (14-36) U/L ALT 36 H (4-34) U/L Alkaline Phosphatase 126 (38-126) U/L Total Protein 7.5 (6.3-8.2) g/dL Albumin 4.7 (3.5-5.0) g/dL Intake and Output 12/06/23 12/06/23 12/06/23 06:59 14:59 22:59 Other: Weight 104.326 kg Patient Weight 12/07/23 06:59 Weight 104.326 kg 12/06/23 13:59 12/06/23 13:59
--- NOTE | 2023-12-11 13:37 | P.PRCINT ---
Percutaneous Coronary Int. - Percutaneous Coronary Intervention Percutaneous Coronary Intervention: PROCEDURES PERFORMED: Left heart catheterization, bilateral coronary angiography, ultrasound guided arterial access, intravascular ultrasound LAD, PCI proximal and mid LAD with overlapping 3.5 x 8, 3.0 x 18 mm, 3.0 x 20 mm Xience JUAN CARLOS postdilated with a 3.5 noncompliant balloon INDICATION: Anterior STEMI CONSENT:I have discussed the risks, benefits and alternative therapies for the above-mentioned procedure and for both sedation/analgesia as well as necessary blood product administration, if indicated, as they pertain to this patient. The patient has indicated understanding and acceptance of the risks and proc edures discussed. PROCEDURE: After the risks, benefits and alternatives of the above mentioned procedure explained in detail with the patient, informed consent was obtained. Patient was taken to the catheterization lab and prepped and draped in usual fashion. Ultrasound guidance was used to assess for arterial access. 1% lidocaine was used to anesthetize the right radial artery. A 6-Australian sheath was placed in the right radial artery using modified Seldinger technique and ultrasound guidance. The residual was made to perform PCI of the LAD. Heparin was given. A 6-Australian CLS 3.5 guide disease to engage the left main. A 0.014 BMW wire was initially attempted to be placed down the LAD however there was significant tortuosity at the takeoff. Therefore this required a supra-cross microcatheter 90 bend with a 0.014 whisper wire which was able to be advanced into the distal LAD. Predilation was performed with a 2.5 x 12 L balloon. There was diffuse disease of a small caliber diagonal branch and therefore this was wired with a 0.014 BMW wire and ballooned at the origin with a 2.0 x 12 mm balloon. Unfortunately there was diffuse disease in with ballooning of LAD this closed off and given small caliber vessel did not feel was amenable to the bifurcation stenting, kissing balloon and therefore treated medically. A 3.0 x 28mm Xience JUAN CARLOS was placed at the mid LAD. Next a 3.5 x 8 mm Xience JUAN CARLOS was placed at the origin of the LAD. Initial consideration of attempted a keep the diagonal open and not stents over the diagonal however given small caliber unable to be easily b allooned, additional stent was placed from the proximal and mid LAD overlapping another 2 stents with a 3.0 x 15 mm Xience JUAN CARLOS. Intravascular ultrasound showed mildly under deployed stent of the mid LAD and reference vessel of the proximal LAD of 3.5 mm. Therefore the proximal midportion of the stent was postdilated with a 3.5 noncompliant balloon. Final angiograms were performed. Pre-interven tion there was 100% stenosis of the mid LAD with SAMUEL 0 flow and postintervention there was 0% stenosis and SAMUEL-3 flow. Right coronary angiography was performed with a 5-Australian FR5 catheter in various views. A 5-Australian FR5 catheter was inserted into the left ventricle and pressure measurements were obtained. The right radial sheath was removed and a TR band was placed with hemostasis achieved. The patient tolerated the procedure well. Patient was transported back to the post catheterization holding area in stable condition. Conscious Sedation: Patient was monitored under the direct supervision of myself for conscious sedation using Versed and fentanyl for a total duration of 56 minutes HEMODYNAMICS: Ao: 166/88 LV: 142/16, LVEDP 20 SELECTIVE CORONARY ARTERIOGRAPHY: LEFT MAIN: The left main is a large caliber vessel which trifurcates into the LAD, ramus and circumflex. There is no significant stenosis. LEFT ANTERIOR DESCENDING CORONARY ARTERY: LAD is a large caliber vessel which wraps around to the apex. There is an ostial 95% stenosis followed by a mid LAD 99% stenosis than a 100% stenosis. RAMUS INTERMEDIUS: The ramus is a small to moderate caliber tortuous vessel wi th mild luminal irregularities. LEFT CIRCUMFLEX CORONARY ARTERY: Left circumflex is a moderate to large caliber vessel which is tortuous and has a mid circumflex 40% stenosis and gives off a moderate to large caliber OM1 branch with mild luminal irregularities. RIGHT CORONARY ARTERY: The right coronary artery is a large caliber vessel which gives off a PDA and PLV branch and is the dominant vessel. There is a proximal RCA 30%, mid RCA 40% and distal RCA 30% stenosis and otherwise diffuse mild luminal irregularities. FINAL IMPRESSION: 1. CAD as described above including 100% mid LAD stenosis, 40% circumflex stenosis, 40% RCA stenosis 2. S/p PCI proximal and mid LAD with overlapping 3.5 x 8, 3.0 x 18 mm, 3.0 x 20 mm Xience JUAN CARLOS postdilated with a 3.5 noncompliant balloon 3. Elevated left sided filling pressures PLAN: 1. Aggressive risk factor modification per most recent ACC/AHA guidelines. 2. Continue dual antiplatelets with aspirin and Brillinta for 12 months 3. Discussed tobacco cessation
== END 2023-12-10 12:47 | disposition home or self-care (01) | DRG 321 ==
LOC: EC 20:44 → 2SICU 21:46 → 3SCARD 12-08 13:38
PROVIDERS: ADMIT Family Medicine; ATTEND Family Medicine
PROC: 027136Z Dilation of Coronary Artery, Two Arteries with Three Drug-eluting Intraluminal Devices, Percutaneous Approach (ICD-10-PCS; principal; 2023-12-06 21:16)
PROC: B241ZZ3 Ultrasonography of Multiple Coronary Arteries, Intravascular (ICD-10-PCS; 2023-12-06 21:16)
PROC: 4A023N7 Measurement of Cardiac Sampling and Pressure, Left Heart, Percutaneous Approach (ICD-10-PCS; 2023-12-06 21:16)
PROC: B2111ZZ Fluoroscopy of Multiple Coronary Arteries using Low Osmolar Contrast (ICD-10-PCS; 2023-12-06 21:16)
DX: I21.09 ST elevation (STEMI) myocardial infarction involving other coronary artery of anterior wall (principal); J96.01 Acute respiratory failure with hypoxia; E66.9 Obesity, unspecified; E78.00 Pure hypercholesterolemia, unspecified; Z68.39 Body mass index [BMI] 39.0-39.9, adult; F17.210 Nicotine dependence, cigarettes, uncomplicated; I08.1 Rheumatic disorders of both mitral and tricuspid valves; I10 Essential (primary) hypertension; F32.A Depression, unspecified; M79.7 Fibromyalgia; K21.9 Gastro-esophageal reflux disease without esophagitis; I25.5 Ischemic cardiomyopathy; J44.9 Chronic obstructive pulmonary disease, unspecified; Z79.01 Long term (current) use of anticoagulants; Z79.51 Long term (current) use of inhaled steroids; Z79.02 Long term (current) use of antithrombotics/antiplatelets; Z79.899 Other long term (current) drug therapy; Z79.82 Long term (current) use of aspirin; Z96.651 Presence of right artificial knee joint; Z98.61 Coronary angioplasty status; Z88.0 Allergy status to penicillin; Z88.1 Allergy status to other antibiotic agents
CPT/HCPCS: 36415; 76937; 80048; 80053; 82565; 83880; 84484; 85025; 92921; 92978; 93306; 93458; 94640; 94760; 96374; 96375; 96376; 99291